=== PATIENT | female | born 1980 | race Caucasian/White ===

== ENCOUNTER 2021-01-26 11:19 | Outpatient (CLI) | payer BC, SELFPAY ==
--- NOTE | ~2021-01-26 | CT_ITS ---
EXAMINATION: CT abdomen pelvis w con EXAM DATE: 01/26/2021 12:45 INDICATION: R10.31 - Right lower quadrant pain. TECHNIQUE: Spiral CT of the abdomen and pelvis was performed following intravenous injection of 100 m L Omnipaque 350. Axial, coronal and sagittal images of the abdomen and pelvis were reviewed. The do se-length product (DLP) for this examination was 375.15 mGy-cm. The exposure was tailored according to patient size (auto mA exposure control), and iterative reconstruction (ASIR) was used as additiona l dose reduction technique. There is no prior study for comparison. FINDINGS: The liver, spleen, adrenal glands and pancreas are unremarkable. Gallbladder is unremarkab le. No biliary obstruction. Portal and splenic veins are patent. Kidneys enhance symmetrically. T here is no hydronephrosis. The uterus is unremarkable. Small free pelvic fluid. The bladder is unr emarkable. There is no retroperitoneal or pelvic lymphadenopathy. Appendix is dilated at 9 mm, has mild adjacent inflammation. No appendicolith or abscess. Acute uncom plicated appendicitis. The stomach and small bowel are unremarkable. There is expected amount of co lonic stool. No free intraperitoneal gas. The heart is normal in size. There are no pericardial or pleural effusions. The lung bases are unremarkable. There are no osteoblastic or osteolytic lesi ons identified. IMPRESSION: Acute appendicitis. I discussed diagnosis with Destini in the office of the ordering clinician THOMAS Brady t 01/26/2021 12:58 [employer] EVENTS [employer]. Reviewed, dictated and finalized at location B. 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 I discussed diagnosis with Destini in the office of the ordering clinician Hannah Jones PA-C at 01/26/2021 12:58 SPECIAL EVENTS [employer]DR[employer]IS[employer].
== END 2021-01-26 11:20 | disposition home or self-care (01) ==
PROVIDERS: PCP Family Medicine; Visit Provider Physician Assistant
DX: R10.31 Right lower quadrant pain (principal); K37 Unspecified appendicitis
CPT/HCPCS: 74177; Q9967

== ENCOUNTER 2021-01-26 14:02 | Day surgery (SDC) | payer BC, SELFPAY ==
[2021-01-26] VITALS (11 sets, daily range): BP systolic 102–134; BP diastolic 61–76; PULSE 50–80; RESP 12–18; TEMP 36.6–37.3; O2SAT 99–100
[2021-01-26 14:46] LABS: Basophils Percent Auto 0.6 % (0.2-1.2); Eosinophils Percent Auto 0.6 % (0-4.4); Hematocrit 44.3 % (37.0-47.0); Hemoglobin 14.6 g/dL (12.0-15.0); Immature Granulocyte Absolute 0.02 K/mm3 (0.00-0.031); Immature Granulocyte Percent A 0.3 % (0-0.5); Mean Corpuscular Hemoglobin 30.6 pg (26-34); Mean Corpuscular Volume 92.9 fl (80-100); Mean Platelet Volume 11.4 fl (7.4-10.4); Monocytes Absolute Auto 0.4 K/mm3 (0.1-0.6); Monocytes Percent Auto 6.2 % (2.6-8.5); Neutrophils Absolute Auto 4.2 K/mm3 (1.3-6.7); Neutrophils Percent Auto 62.3 % (45.5-73.1); Platelet Count Result 234 k/mm3 (150-375); Red Blood Count 4.77 M/mm3 (4.2-5.4); Red Cell Distribution Width 11.5 % (11.5-14.5); White Blood Count 6.7 K/mm3 (4.5-10.0)
[2021-01-26 14:49] LABS: Alanine Aminotransferase 17 U/L (4-35); Albumin Level 4.9 g/dL (3.5-5.1); Alkaline Phosphatase 51 U/L (38-126); Anion Gap 10 mmol/L (8-16); Aspartate Amino Transferase 27 U/L (14-36); Bilirubin,Total 0.4 mg/dL (0.2-1.3); Blood Urea Nitrogen 7 mg/dL (7-17); Calcium 9.5 mg/dL (8.4-10.2); Carbon Dioxide 26 mmol/L (22-30); Chloride 101 mmol/L (98-107); Estimated CRCL calculation 79 ml/min; Estimated Glomerular Filt Rate > 60; Glucose 90 mg/dL (65-110); Lipase 56 U/L (23-300); Potassium 4.1 mmol/L (3.4-5.0); Sodium 137 mmol/L (137-145)
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
[2021-01-26 15:14] LABS: Add Urine Microscopic? NO; Appearance Urine Clear (Clear); Bilirubin Urine Negative (Negative); Blood Urine Negative (Negative); Color Urine Straw (Yellow); Glucose Urine UA Negative (Negative); Ketones Urine Negative (Negative); Leukocyte Esterase Ur Negative LEU/UL (Negative); Mucus Urine Rare /lpf; Nitrate Urine Negative (Negative); Protein Urine Negative (Negative); Urobilinogen Urine Negative mg/dL (<2.0)
[2021-01-26 15:29] LABS: Pregnancy On Board Control Positive; Urine Pregnancy Test Negative
[2021-01-26] MEDS: SODIUM CHLORIDE 0.9% IV 1,000 ML 999 ML IV CONT (15:34)
--- NOTE | 2021-01-26 16:00 | WPDANESEPPF ---
Anes - Initial Pre Proc Eval Procedure: Operation Date: 01/26/21 17:00 Proposed Procedures p Laparoscopic Appendectomy possible open - Meet Live MD Date/Time: 01/26/21 16:00 Pre Op Diagnosis: Appendicitis Patient Data Age: 40 Gender: F Height: 1.55 m Weight: 63.5 kg Last Vital Signs Temp 36.7 C 01/26/21 14:11 Pulse 66 01/26/21 14:11 Resp 16 01/26/21 14:11 BP 111/67 01/26/21 14:11 Pulse Ox 99 01/26/21 14:11 Allergies Allergy/AdvReac Type Severity Reaction Status Date / Time No Known Allergies Allergy Verified 01/25/21 15:52 Home Medications Medication Instructions Recorded Confirmed Type norethindrone 1 mg-ethinyl 1 tablet PO DAILY 05/02/20 01/25/21 History estradiol 20 mcg (21)-iron 75 mg (7) tablet omeprazole 20 mg capsule,delayed 20 mg PO DAILY #30 cap 01/25/21 01/25/21 Rx release sucralfate 1 gram tablet 1 g PO ONCE #40 tablet 01/25/21 01/25/21 Rx Laboratory Tests 01/26/21 01/26/21 01/26/21 14:28 14:28 14:39 WBC 6.7 K/mm3 K/mm3 (4.5-10.0) RBC 4.77 M/mm3 M/mm3 (4.2-5.4) Hgb 14.6 g/dL g/dL (12.0-15.0) Hct 44.3 % % (37.0-47.0) MCV 92.9 fl fl (80-100) MCH 30.6 pg pg (26-34) MCHC 33.0 g/dl g/dl (32-36) RDW 11.5 % % (11.5-14.5) Plt Count 234 k/mm3 k/mm3 (150-375) MPV 11.4 fl H fl (7.4-10.4) Immature Gran % (Auto) 0.3 % % (0-0.5) Neut % (Auto) 62.3 % % (45.5-73.1) Lymph % (Auto) 30.0 % % (18.3-44.2) [place] % (Auto) 6.2 % % (2.6-8.5) Eos % (Auto) 0.6 % % (0-4.4) Baso % (Auto) 0.6 % % (0.2-1.2) Lymph # (Auto) 2.00 K/mm3 K/mm3 (0.9-3.2) [place] # (Auto) 0.4 K/mm3 K/mm3 (0.1-0.6) Eos # (Auto) 0.0 K/mm3 K/mm3 (0-0.3) Baso # (Auto) 0.0 K/mm3 K/mm3 (0.0-0.1) Abs Immat Gran (auto) 0.02 K/mm3 K/mm3 (0.00-0.031) Absolute Neuts (auto) 4.2 K/mm3 K/mm3 (1.3-6.7) Absolute Nucleated RBC 0.0 K/mm3 K/mm3 (0.0-0.012) Nucleated RBC % 0.0 % % (0.0-0.2) Sodium 137 mmol/L mmol/L (137-145) Potassium 4.1 mmol/L mmol/L (3.4-5.0) Chloride 101 mmol/L mmol/L (98-107) Carbon Dioxide 26 mmol/L mmol/L (22-30) Anion Gap 10 mmol/L mmol/L (8-16) BUN 7 mg/dL mg/dL (7-17) Creatinine 0.70 mg/dL mg/dL (0.7-1.0) Estim Creat Clear Calc 79 ml/min ml/min Estimated GFR > 60 (59 - ) Glucose 90 mg/dL mg/dL (65-110) Calcium 9.5 mg/dL mg/dL (8.4-10.2) Total Bilirubin 0.4 mg/dL mg/dL (0.2-1.3) AST 27 U/L U/L (14-36) ALT 17 U/L U/L (4-35) Alkaline Phosphatase 51 U/L U/L (38-126) Total Protein 8.0 g/dL g/dL (6.3-8.2) Albumin 4.9 g/dL g/dL (3.5-5.1) Lipase 56 U/L U/L (23-300) Urine Color Straw (Yellow) Urine Appearance Clear (Clear) Urine pH 6.0 (5.0-9.0) Ur Specific Tracy 1.010 (1.001-1.035) Urine Protein Negative mg/dL mg/dL (Negative) Urine Glucose (UA) Negative mg/dL mg/dL (Negative) Urine Ketones Negative mg/dL mg/dL (Negative) Ur Blood (Man) Negative (Negative) Urine Nitrate Negative (Negative) Urine Bilirubin Negative (Negative) Urine Urobilinogen Negative mg/dL mg/dL (<2.0) Leukocyte Esterase Rfl Negative JAYDEN/UL JAYDEN/UL (Negative) Urine Mucus Rare /lpf /lpf Urine Test 01/26/21 14:39 WBC RBC Hgb Hct MCV MCH MCHC RDW Plt Count MPV Immature Gran % (Auto) Neut % (Auto) Lymph % (Auto) [place] % (Auto) Eos % (Auto) Baso % (Auto) Lym
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
--- NOTE | 2021-01-26 16:41 | WPDANESEFPP ---
Anes - Eval Final PreProcedure Day of Procedure 01/26/21 16:41 Patient weight: overweight Heart: regular rate and rhythm Lungs: clear to auscultation Airway: Mallampati scale class II Neurological: alert and oriented Last oral intake: >/= 8 hours ASA classification: II Emergent: yes Anesthetic plan: proceed Anesthesia type and monitoring: general ETT and standard monitoring Results Review: All pre-operative results and documents have been reviewed as part of the pre-operative evaluation. Informed Consent: The patient's anesthetic plan and its attendant risks and benefits were discussed with the patient/family/POA. Questions were solicited and answers provided to the satisfaction of the patient/family/POA.
[2021-01-26] MEDS: LACTATED RINGERS 1,000 ML 30 ML IV CONT ×2 (16:46→18:05)
[2021-01-26] MEDS: BUPIVACAINE HCL 0.5% PF 30 ML VIAL 20 ML INFILTRATE (16:55)
--- NOTE | 2021-01-26 16:57 | WPDHPUPDATE1 ---
History and Physical Update Update Date/Time: 01/26/21 16:57 History and Physical has been reviewed, including an updated exam of the patient. There are NO changes in the patient's condition. Risks, benefits, and alternatives have been discussed and questions answered. Patient agrees to proceed with procedure.
--- NOTE | 2021-01-26 16:58 | W.PM.PROC2 ---
Procedure Note - Detailed Date of Procedure 01/26/21 Pre-op Diagnosis Appendicitis Post-op Diagnosis same Procedure Performed Laparoscopic appendectomy Surgeon Meet Live MD [employer] Change Attendant Sukh GASTON Anesthesia general and local (0.5% Marcaine) Indications Patient presented to her primary care physician with upper abdominal pain yesterday. She did notice some tenderness in the right lower quadrant as well as in the epigastrium. The patient had a CT scan of the abdomen and pelvis this morning. This showed early acute appendicitis. She is taken to surgery now for laparoscopic appendectomy. Findings Acute non perforated appendicitis Description of Procedure Patient was taken to surgery and induced into general anesthesia. The abdomen is prepped and draped. Trocars were placed in the usual fashion using 0.5% Marcaine and applied Medical optical trocars. A 5 mm camera was used. The patient was placed in Trendelenburg with the right-side elevated. The appendix was found fairly easily and was dissected free from inflammatory adhesions. It was elevated into the anterior aspect of the peritoneal cavity. Dissection was carried out at the base of the mesoappendix. The appendiceal artery was thoroughly cauterized and divided. The base of the appendix was skeletonized. Base of the appendix was ligated with a Vicryl endoloop. The appendix was then amputated just above the ligature. The mucosa of the appendiceal stump was cauterized. The appendix was placed immediately in an Endo-Catch bag and retrieved through the 10 11 left lower quadrant trocar site. We then replaced the left lower quadrant trocar. We reviewed the areas of dissection as well as the appendiceal stump. All looked good. Any clot or other debris was suctioned away. We then evacuated CO2 and removed the trocar sleeves. Skin wounds were closed with subcuticular running Monocryl 4-0 Monocryl skin suture. The wounds were dressed with Exofin surgical adhesive. The patient was awakened and taken to recovery in good condition. Sponge needle counts were correct x2. Estimated Blood Loss -5 Drains No Packing No Pathology yes (Appendix) Complications No immediate complications Condition stable Disposition PACU
[2021-01-26] MEDS: oxyCODONE HCL (*CRX) 5 MG TAB IR PO (18:54)
[2021-01-26] MEDS: ONDANSETRON INJ 4 MG/2 ML VIAL IV PUSH (19:16)
== END 2021-01-26 19:36 | disposition home or self-care (01) ==
LOC: ANHED 16:00 → ANHSURGERY 16:21
PROVIDERS: Emergency Medicine; Emergency Provider General Practice; PCP Family Medicine; Visit Provider Surgery
PROC: 0DTJ4ZZ Resection of Appendix, Percutaneous Endoscopic Approach (ICD-10-PCS; CPT 44970; principal; 2021-01-26 17:00)
DX: K35.30 Acute appendicitis with localized peritonitis, without perforation or gangrene (principal); K36 Other appendicitis
CPT/HCPCS: 44970; 36415; 80053; 81003; 81025; 83690; 85025; 88304; 96365; 96367; 99285; A9270; J0131; J0330; J1100; J2405; J2543; J2704; J2710; J3010; J7030; J7120

== ENCOUNTER → 2022-02-21 13:52 | Outpatient (CLI) | payer BC, SELFPAY ==
--- NOTE | ~2022-02-21 | XR_ITS ---
EXAMINATION: XR sacrum coccyx min 2V INDICATION: Pain after fall TECHNIQUE: Three views of the sacrum and coccyx are obtained. COMPARISON: CT, 01/26/2021 FINDINGS: Bone alignment is normal. No definite fracture is identified. Surgical clips project in the right adnexa. No abnormal sclerosis or erosion. IMPRESSION: 1. No acute osseous abnormality. Reviewed, dictated and finalized at location L. E SHIFTER
== END ==
PROVIDERS: PCP Nurse Practitioner; Visit Provider Nurse Practitioner
DX: S39.82XA Other specified injuries of lower back, initial encounter (principal)
CPT/HCPCS: 72220

== ENCOUNTER 2023-11-28 14:20 | Outpatient (CLI) | payer OTHER, SELFPAY ==
--- NOTE | ~2023-11-28 | MM_ITS ---
EXAMINATION: MM screening alvaro BI w aundrea HISTORY: Screening TECHNIQUE: Craniocaudal and mediolateral oblique 3-D tomosynthesis images were obtained and synthetic 2-D images were generated. CAD analysis was submitted and interpreted. COMPARISON: 09/19/2022 BREAST PARENCHYMAL COMPOSITION: Dense: The breasts are heterogeneously dense, which may obscure small masses FINDINGS: There is no evidence of suspicious mass, calcification, or architectural distortion to sugg est malignancy in either breast. There has been no suspicious interval change. IMPRESSION: 1. No mammographic evidence of malignancy. 2. Recommend routine screening mammography in one year. BI-RADS Category 1: Negative Reviewed, dictated and finalized at location B.
== END 2023-11-28 14:21 | disposition home or self-care (01) ==
LOC: CHSIMG 14:22
PROVIDERS: PCP Family Medicine; Visit Provider Obstetrics & Gynecology
DX: Z12.31 Encounter for screening mammogram for malignant neoplasm of breast (principal)
CPT/HCPCS: 77063; 77067

== ENCOUNTER 2024-02-16 10:04 | Outpatient (CLI) | payer OTHER, SELFPAY | END 2024-02-16 10:05 | disposition home or self-care (01) | PROVIDERS: PCP Family Medicine; Visit Provider Family Medicine | DX: R94.31 Abnormal electrocardiogram [ECG] [EKG] (principal); R55 Syncope and collapse; R00.2 Palpitations | CPT/HCPCS: 93242 ==

== ENCOUNTER 2024-02-17 08:12 | Outpatient (CLI) | payer OTHER, SELFPAY ==
[2024-02-17 14:29] LABS: Basophils Absolute Auto 0.1 K/mm3 (0.0-0.1); Eosinophils Absolute Auto 0.2 K/mm3 (0-0.3); Eosinophils Percent Auto 2.4 % (0-4.4); Hematocrit 43.1 % (37.0-47.0); Hemoglobin 13.8 g/dL (12.0-15.0); Immature Granulocyte Absolute 0.01 K/mm3 (0.00-0.031); Immature Granulocyte Percent A 0.2 % (0-0.5); Lymphocytes Absolute Auto 3.24 K/mm3 (0.9-3.2); Lymphocytes Percent Auto 51.3 % (18.3-44.2); Mean Corpuscular Hemoglobin 30.1 pg (26-34); Mean Corpuscular Volume 94.1 fl (80-100); Mean Platelet Volume 11.4 fl (7.4-10.4); Monocytes Absolute Auto 0.6 K/mm3 (0.1-0.6); Monocytes Percent Auto 9.2 % (2.6-8.5); Neutrophils Absolute Auto 2.3 K/mm3 (1.3-6.7); Neutrophils Percent Auto 35.9 % (45.5-73.1); Platelet Count Result 245 k/mm3 (150-375); Red Blood Count 4.58 M/mm3 (4.2-5.4); Red Cell Distribution Width 11.6 % (11.5-14.5); White Blood Count 6.3 K/mm3 (4.5-10.0)
[2024-02-17 14:42] LABS: Alanine Aminotransferase 20 U/L (6-35); Albumin Level 4.3 g/dL (3.5-5.1); Alkaline Phosphatase 44 U/L (38-126); Anion Gap 0 mmol/L (4-12); Aspartate Amino Transferase 81 U/L (14-36); Bilirubin,Total 0.7 mg/dL (0.2-1.3); Blood Urea Nitrogen 15 mg/dL (7-17); Carbon Dioxide 32 mmol/L (22-30); Chloride 104 mmol/L (98-107); Cholesterol 262 mg/dL (0-200); Estimated Glomerular Filt Rate > 60; Glucose 84 mg/dL (65-110); HDL Direct 68 mg/dL; Potassium 4.4 mmol/L (3.4-5.0); Sodium 136 mmol/L (137-145); Triglycerides 144 mg/dL (<150)
[2024-02-17 14:51] LABS: LDL Cholesterol Direct 138 mg/dL
--- OUTSIDE RECORDS SUMMARY | 2024-02-24 06:20 | XMS_ITS | Clinical Summary ---
Author Organization 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 Note: Unchanged Visit For: Contraceptive Surveillance 12/02/2022 RAY ROCK MD Active Last Documented On 12/02/2022 4:44PM ; [facility] Note: Unchanged Dysfunctional Uterine Bleeding 05/28/2018 BAN WILKES RN [facility] Active Last Documented On 05/28/2018 9:42AM ; [facility] Note: Unchanged Plan of Treatment - Weight loss diet - Last Documented On 08/13/2021 11:01AM ; [facility] - Clinical summary provided to patient - Last Documented On 08/13/2021 11:01AM ; [facility] PT TO CALL WITH ANY CHANGE IN STATUS ALL QUESTIONS ANSWERED WITH UNDERSTANDING VERBALIZED BY PT. - Last Documented On 08/13/2021 11:01AM ; [facility] Instructions to patient Instructed to call if excess shreyas bleeding or abdominal/pelvic pain Last Documented On 10:45AM ; [facility] Instructions For Patient: Mo nthly Self Breast Exam Last Documented On 2 10:45AM ; [facility] Recommend diet and exercise at least 30 min three times per week Last Documented On 2 10:45AM ; [facility] Education and Decision Aids were provided during visit for: Patient education RE: juan josen g signals associated with hormonal contraceptive use including abdominal, chest, or leg pain, headaches or visual disturbances Last Documented On 2 10:45AM ; [facility] Patient Education: Daily ojs cium and vitamin D Last Documented On 2 10:45AM ; [facility] Assessments Includes: Assessments from this encounter Findings - NORMAL FEMALE EXAM - Last Documented On 08/13/2021 11:01AM ; [facility] - Screen malignant neoplasm cervix - Last Documented On 08/13/2021 11:01AM ; [facility] Instructions Includes: Instructions from this encounter Instructions to patient Instructed to call if excess shreyas bleeding or abdominal/pelvic pain Last Documented On 2 10:45AM ; [facility] Instructions For Patient: Mo nthly Self Breast Exam Last Documented On 2 10:45AM ; [facility] Recommend diet and exercise at least 30 min three times per week Last Documented On 2 10:45AM ; [facility] Education and Decision Aids were provided during visit for: Patient education RE: juan josen g signals associated with hormonal contraceptive use including abdominal, chest, or leg pain, headaches or visual disturbances Last Documented On 2 10:45AM ; [facility] Patient Education: Daily jos cium and vitamin D Last Documented On 2 10:45AM ; [facility] Medical Equipment - Implanted Devices Includes: Current Devices No Medical Equipment Recorded Medications Includes: Medications discussed during this encounter and other current Medications Discontinued / Stopped on this date on 06/22/2020 Biotin Plus Keratin 52660-963 MCG-MG Oral Tablet Provider: Diagnosis: Last Documented On 08/13/2021 10:38AM By Annette Andres ; [facility] B-12 5000 MCG Oral Capsule Provider: Diagnosis: Last Documented On 08/13/2021 10:37AM By Annette Andres ; [facility] Glucosamine-Chondroitin 6492-5363 MG/30ML Oral Liquid Provider: Diagnosis: Last Documented On 08/13/2021 10:38AM By Annette Andres ; [facility] Sudafed 30MG Oral Tablet Provider: Diagnosis: Last Documented On 08/13/2021 10:38AM By Annette Andres ; [facility] New / Renewed during this visit BAN WILKES RN [facility] on 08/13/2021 Lo Loestrin Fe 1 MG-10 MCG / 10 MCG Oral Tablet Provider: BAN WILKES RN LOR[facility]ZO 84 day supply: 84 tablet, 3 refills Diagnosis: One tablet daily Pharmacy: [facility] [address], [address] - Last Documented On 2 2:46PM By BAN PRESLEY ; [facility] Current Medications (continue as prescribed) ZyrTEC Allergy 10 MG Oral Tablet 08/13/2021 Provider : Diagnosis: Last Documented On 08/13/2021 10:38AM By Annette Andres ; [facility] Womens Multivitamin Oral Tablet 06/22/2020 Provider: Diagnosis: Last Documented On 1 9:20AM By MOISÉS DONALDSON ; [facility] Past Medications on file Lo Loestrin Fe 1 MG-10 MCG / 10 MCG Oral Tablet 09/19/2022 - 12/12/2022 Provider: BAN VELASQUEZ Diagnosis: Encounter for surveillance of contraceptives, unspecified One tablet daily TAKE DIRECTED Last Documented On 3 2:34PM By BAN RICARDO ; [facility] Condoms Miscellaneous 08/15/2022 - 09/14/2022 Provider: BAN VELASQUEZ Diagnosis: Other specified abnormal uterine and vaginal bleeding as directed PLEASE DISPENSE MAGNUM CONDOMS Last Documented On 3 12:00PM By BAN RICARDO ; [facility] Aviane 0.1-20MG-MCG Oral Tablet 05/27/2017 - 08/19/2017 Provider: BAN VELASQUEZ Diagnosis: Other specified abnormal uterine and vaginal bleeding TAKE 1 TAB DAILY START PACK Friday AFTER MENSES BEGINS Last Documented On 8 2:48PM By BAN RICARDO ; [facility] Medications Administered Includes: Administered Medications from this encounter No Administered Medications Recorded Vital Signs Includes: Vital Signs from this encounter Vital Name 08/13/2021 10:36A Blood Pressure Sitting L 102/76 BP Cuff Size Regular Temp-Oral (F) 98 Height (in) 61.75 Weight (lb) 152 Body Mass Index (kg/m2) 28.0 Body Surface Area (m2) 1.7 Last Documented: On 08/13/2021 10:39A M ; [facility] Results Includes: Results discussed during this encounter No Results Recorded For Specified Dates History of Present Illness Includes: History of Present Illness from this encounter HPI - Allergy list reviewed - Medication list reviewed Takes combined OCP continuous to avoid cycles Social History Description Last Updated Alcohol use: 2 drinks or less per day oc c 08/13/2021 Last Documented On 2 11:01AM ; [facility] Current nonsmoker 08/13/2021 Last Documented On 2 11:01AM ; [facility] Currently 08/13/2021 Last Documented On 2 11:01AM ; [facility] Educational level 08/13/2021 Last Documented On 2 11:01AM ; [facility] Exercising regularly Activities 08/14/19 Last Documented On 2 11:01AM ; [facility] Former smoker 08/13/2021 Last Documented On 2 11:01AM ; [facility] In monogamous relationship 08/13/2021 Last Documented On 2 11:01AM ; [facility] Marital history 08/13/2021 Last Documented On 2 11:01AM ; [facility] Non-smoker 08/13/2021 Last Documented On 2 11:01AM ; [facility] Not using alcohol 08/13/2021 Last Documented On 2 11:01AM ; [facility] Not using drugs 08/13/2021 Last Documented On 2 11:01AM ; 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 Sexually active with 1 partners in the l ast year 08/13/2021 Last Documented On 2 11:01AM ; [facility] Alcohol use 08/13/2021 Last Documented On 2 11:01AM ; [facility] control is being practiced BTL Last Documented On 2 11:01AM ; [facility] Tobacco non-user 08/13/2021 Last Documented On 2 11:01AM ; [facility] Smoking Status Unknown Procedures and Surgical History Includes: Procedures from this encounter Procedures Code Diagnosis Performing Provider Service L ocation Service Date education and instructions Last Documented On 2 10:45AM ; [facility] explanation of plan Last Documented On 2 10:45AM ; [facility] medical regimen review Last Documented On 2 10:45AM ; [facility] Discussed Contraception Last Documented On 2 10:45AM ; [facility] Urged Exercise and Diet , exercise at le ast 30 min three times per week Last Documented On 2 10:45AM ; [facility] a mammogram was performed 08/17/2020 Last Documented On 2 10:41AM ; [facility] cervical Pap smear [id number] Last Documented On 2 10:45AM ; [facility] history of cervical Pap smear 08/09/2020 [id number] Last Documented On 2 10:41AM ; [facility] Surgical History Last Updated History of tubal ligation 08/05/2005 10/0 10/2022 Last Documented On 2 10:34AM ; [facility] History of appendectomy 01/27/202108/13 Last Documented On 2 11:01AM ; [facility] Medical History Includes: Medical History addressed during this encounter Description Last Updated Contraception: tubal 12/02/2022 Last Documented On 2 10:34AM ; [facility] Result: normal 12/02/2022 Last Documented On 2 10:34AM ; [facility] A mammogram was performed 08/13/2021 Last Documented On 2 11:01AM ; [facility] History of screening mammogram was perfo rmed 08/17/2020 08/13/2021 Last Documented On 2 11:01AM ; [facility] LMP: 07/05/2021 usually does not have cyc le but missed pills and had one 08/13/2021 Last Documented On 2 11:01AM ; [facility] Last mammogram date: 08/17/2020 2 Last Documented On 2 11:01AM ; [facility] Last pap smear date 08/09/2020 no ECC Last Documented On 2 11:01AM ; [facility] History of cervical Pap smear 06/22/2020 WNL no ECC 08/09/2020 Last Documented On 2 10:34AM ; [facility] Vaginal delivery x 2 06/22/2020 Last Documented On 2 10:34AM ; [facility] Primary Care Provider: Kena Daniel- part of [facility] system 06/22/2020 Last Documented On 2 10:34AM ; [facility] Sexually active 06/01/2019 Last Documented On 2 10:34AM ; [facility] History of dysfunctional uterine bleedin g 05/28/2018 Last Documented On 2 10:34AM ; [facility] Status post tubal ligation 2004 05/28/19 18 Last Documented On 2 10:34AM ; [facility] Heart Disease- paternal grandfather ~hyp ertension- both sides 05/27/2017 Last Documented On 2 10:34AM ; [facility] 2 05/27/2017 Last Documented On 2 10:34AM ; [facility] Para 2 05/27/2017 Last Documented On 2 10:34AM ; [facility] Family History Includes: Family History addressed during this encounter Description Last Updated Family history of malignant neoplasm of large intestine 2 different paternal uncles ~maternal uncle 06/22/2020 Last Documented On 2 10:34AM ; [facility] Heart Disease- paternal grandfather ~hyp ertension- both sides 05/28/2018 Last Documented On 2 10:34AM ; [facility] M uncle Prostate CA 05/28/2018 Last Documented On 2 10:34AM ; [facility] Family history of malignant female breast neoplasm mom in 50's dx. 2018 intraductal carcinoma, ER+ SC+ HER 2 - 05/28/2018 Last Documented On 2 10:34AM ; [facility] Family history of diabetes m ellitus paternal grandparents ~sister during 05/27/2017 Last Documented On 2 10:34AM ; [facility] Review of Systems Includes: Review of Systems from this encounter Systemic: Not tiring easily. No fever, no chills, no unusual bleeding, and no recent weight change. No pain. Head: No headache. Neck: No neck pain and no swollen glands in the neck. Eyes: No vision problems. Breasts: No breast symptoms, no breast lump, no pain in breast, and patient performs self breast exams. Cardiovascular: No chest pain or discomfort and no palpitations. Pulmonary: No pulmonary symptoms, no dyspnea, no cough, and no wheezing. Gastrointestinal: No heartburn. No nausea, no vomiting, no abdominal pain, no diarrhea, and no constipation. Genitourinary: No change in urinary frequency and no incomplete emptying of bladder. No urinary loss of control and no dysuria. No genital lesion, no pain during intercourse, and no vaginal dryness. No nonmenstrual bleeding. No vaginal discharge. Endocrine: No polydipsia, no hot flashes, and libido has not changed. Musculoskeletal: No back pain, no muscle aches, and no localized joint pain. Neurological: No dizziness. Psychological: No anxiety, no depression, and a desire to continue living. Skin: No pruritus. No skin lesions and no rash. Mental Status Includes: Mental Status from this encounter Description Oriented to time, place, and person No anxiety A desire to continue living Functional Status Includes: Functional Status from this encounter No Functional Status Recorded Physical Exam Includes: Physical Exam from this encounter Allergies Includes: Active Allergies No Known Allergies Encounters Encounter Provider Location Date Check-In Time Check-Out Time Diagnosis WELL [facility]OMAN - ESTABLISHED PT BAN WILKES RN NP [facility] 08/14/19 22 10:33AM 10:59AM Normal Female Exam,Screen Malignant Neoplasm Cervix Insurance Includes: Active Insurance Policies Plan Name Member ID Group # Subscriber Relationship Effect shreyas Dates 1 - [facility] [id number] DAYA WHITE Self Clinical Notes Includes: Clinical Notes from this encounter No Clinical Notes Recorded
--- OUTSIDE RECORDS SUMMARY | 2024-02-24 06:20 | XMS_ITS | Clinical Summary ---
Author Organization [facility] Address [address] [place] [address] Phone Care Team Providers Care Sales Systems Engineer Name Role Phone SHWETA SCOTT, RAY Alexander Unavailable [phone] SHY VELIZ MD Primary Care Provider [phone] Reason for Visit and Chief Complaint visit for: contraceptive management - The Chief Complaint is: REPAP, NO ECC Problems Includes: Problems addressed during this encounter and other active Problems All Visits Onset Date Resolved Date Provider Condition S tatus Hyperlipidemia 12/02/2022 RAY Pickett MD Active Last Documented On 12/02/2022 4:44PM ; [facility] Note: Unchanged Visit For: Contraceptive Surveillance 12/02/2022 RAY CHOE MD Active Last Documented On 12/02/2022 4:44PM ; [facility] Note: Unchanged Dysfunctional Uterine Bleeding 05/28/2018 BAN WILKES RN [facility] Active Last Documented On 05/28/2018 9:42AM ; [facility] Note: Unchanged Plan of Treatment Education and Decision Aids were provided during visit for: Patient education :Pt. infor med of CT of abdomen and pelvis results today and handout given on HSG procedure. Pt. to be notified of all results for plan of care as well as need for surgical consult post HSG Last Documented On 3 2:36PM ; [facility] Patient counseling : I discu ssed with the patient possible causes of abnormal Pap smear and recommended evaluation. Potential treatments were also discussed Last Documented On 3 2:32PM ; [facility] Patient counseling : Use of contraceptives discussed in detail including rare occurrence of heart attack, stroke, and leg clots. Patient understands that smoking increases the risk of serious side effects with any steroid-based contraceptive method Last Documented On 3 2:38PM ; [facility] Assessments Includes: Assessments from this encounter Findings - [R87.615 - Unsatisfactory cytologic smear of cervix] Abnormal Pap smear of cervix - Last Documented On 09/19/2022 2:42PM ; [facility] - [Z30.40 - Encounter for surveillance of contraceptives, unspecified] Contraceptive surveillance - Last Documented On 09/19/2022 2:42PM ; [facility] - [Z30.2 - Encounter for sterilization] Encounter for contraceptive management, sterilization - Last Documented On 09/19/2022 2:42PM ; [facility] Instructions Includes: Instructions from this encounter Education and Decision Aids were provided during visit for: Patient education :Pt. infor med of CT of abdomen and pelvis results today and handout given on HSG procedure. Pt. to be notified of all results for plan of care as well as need for surgical consult post HSG Last Documented On 3 2:36PM ; [facility] Patient counseling : I discu ssed with the patient possible causes of abnormal Pap smear and recommended evaluation. Potential treatments were also discussed Last Documented On 3 2:32PM ; [facility] Patient counseling : Use of contraceptives discussed in detail including rare occurrence of heart attack, stroke, and leg clots. Patient understands that smoking increases the risk of serious side effects with any steroid-based contraceptive method Last Documented On 3 2:38PM ; [facility] Medical Equipment - Implanted Devices Includes: Current Devices No Medical Equipment Recorded Medications Includes: Medications discussed during this encounter and other current Medications Discontinued / Stopped on this date BAN WILKES RN LORENZO on 07/03/202203/15 1-20 MG-MCG Oral Tablet Provider: BAN WILKES RN Alonso P Diagnosis: Other specified abnormal uterine and vaginal bleeding Last Documented On 09/19/2022 1:58PM By Annette Andres ; [facility] New / Renewed during this visit BAN VELASQUEZ on 09/19/2022 Lo Loestrin Fe 1 MG-10 MCG / 10 MCG Oral Tablet Provider: BAN Gupta LORENZO 28 day supply: 28 tablet, 2 refills Diagnosis: Encounter for surveillance of contraceptives, unspecified One tablet daily TAKE DIRECTED Last Documented On 3 2:34PM By BAN RICARDO ; [facility] Current Medications (continue as prescribed) ZyrTEC Allergy 10 MG Oral Tablet 08/13/2021 Provider : Diagnosis: Last Documented On 08/13/2021 10:38AM By Annette Andres ; [facility] Womens Multivitamin Oral Tablet 06/22/2020 Provider: Diagnosis: Last Documented On 1 9:20AM By MOISÉS DONALDSON ; [facility] Past Medications on file Condoms Miscellaneous 08/15/2022 - 09/14/2022 Provider: BAN WILKES RN LORENZO Diagnosis: Other specified abnormal uterine and vaginal bleeding as directed PLEASE DISPENSE MAGNUM CONDOMS Last Documented On 3 12:00PM By BAN RICARDO ; [facility] Aviane 0.1-20MG-MCG Oral Tablet 05/27/2017 - 08/19/2017 Provider: BAN WILKES RN LORENZO Diagnosis: Other specified abnormal uterine and vaginal bleeding TAKE 1 TAB DAILY START PACK Friday AFTER MENSES BEGINS Last Documented On 8 2:48PM By BAN RICARDO ; [facility] Medications Administered Includes: Administered Medications from this encounter No Administered Medications Recorded Vital Signs Includes: Vital Signs from this encounter Vital Name 09/19/2022 01:55P Blood Pressure Sitting L 98/60 BP Cuff Size Regular Temp-Temporal 98.3 Height (in) 61.75 Weight (lb) 148 Body Mass Index 27.3 Body Surface Area 1.7 Last Documented: On 09/19/2022 2:01PM ; [facility] Results Includes: Results discussed during this encounter No Results Recorded For Specified Dates History of Present Illness Includes: History of Present Illness from this encounter HPI Patient comes with a history of abnormal pap smear. See details of Pap smear results below. The patient presents for contraceptive management. See details below. - Allergy list reviewed. - Feeling fine. - No headache. - No breast symptoms. - No bloating - No jaundice - Normal menses Social History No Social History Recorded - Smoking Status Unknown Procedures and Surgical History Includes: Procedures from this encounter Procedures Code Diagnosis Performing Provider Service L ocation Service Date education and instructions Last Documented On 3 2:38PM ; [facility] Pap smear done 78844 Last Documented On 3 2:31PM ; [facility] Clinical summary provided to patient Last Documented On 3 2:38PM ; [facility] Surgical History Last Updated History of tubal ligation 08/05/20050 10/2022 Last Documented On 3 1:54PM ; [facility] History of appendectomy 01/27/202108/13 Last Documented On 3 1:54PM ; [facility] Medical History Includes: Medical History addressed during this encounter Description Last Updated Contraception: tubal 12/02/2022 Last Documented On 3 1:54PM ; [facility] Last mammogram date: 08/202112/02/2022 Last Documented On 3 1:54PM ; [facility] Result: normal 12/02/2022 Last Documented On 3 1:54PM ; [facility] Result: normal no ECC 09/19/2022 Last Documented On 3 2:42PM ; [facility] Last pap smear date 08/15/2022 NO ECC Last Documented On 3 2:42PM ; [facility] LMP: 08/15/2022 Just spotting every once and a while 08/15/2022 Last Documented On 3 1:54PM ; [facility] History of screening mammogram was perfo rmed 08/202108/15/2022 Last Documented On 3 1:54PM ; [facility] A mammogram was performed 08/13/2021 Last Documented On 3 1:54PM ; [facility] History of cervical Pap smear 06/22/2020 WNL no ECC 08/09/2020 Last Documented On 3 1:54PM ; [facility] Vaginal delivery x 2 06/22/2020 Last Documented On 3 1:54PM ; [facility] Primary Care Provider: Kena Daniel- part of [employer] system 06/22/2020 Last Documented On 3 1:54PM ; [facility] Sexually active 06/01/2019 Last Documented On 3 1:54PM ; [facility] History of dysfunctional uterine bleedin g 05/28/2018 Last Documented On 3 1:54PM ; [facility] Status post tubal ligation 200305/28/19 Last Documented On 3 1:54PM ; [facility] Heart Disease- paternal grandfather ~hyp ertension- both sides 05/27/2017 Last Documented On 3 1:54PM ; [facility] 2 05/27/2017 Last Documented On 3 1:54PM ; [facility] Para 2 05/27/2017 Last Documented On 3 1:54PM ; [facility] Family History Includes: Family History addressed during this encounter Description Last Updated Family history of malignant neoplasm of large intestine 2 different paternal uncles ~maternal uncle 06/22/2020 Last Documented On 3 1:54PM ; [facility] Heart Disease- paternal grandfather ~hyp ertension- both sides 05/28/2018 Last Documented On 3 1:54PM ; [facility] M uncle Prostate CA 05/28/2018 Last Documented On 3 1:54PM ; [facility] Family history of malignant female breast neoplasm mom in 50's dx. 2018 intraductal carcinoma, ER+ OR+ HER 2 - 05/28/2018 Last Documented On 3 1:54PM ; [facility] Family history of diabetes m ellitus paternal grandparents ~sister during 05/27/2017 Last Documented On 3 1:54PM ; [facility] Review of Systems Includes: Review of Systems from this encounter Systemic: No fever and no chills. Head: No headache. Eyes: No vision problems. Cardiovascular: No chest pain or discomfort. Pulmonary: No dyspnea. Gastrointestinal: No nausea, no vomiting, and no abdominal pain. DENIES ARM OR LEG PAIN ON HORMONAL CONTRACEPTION. Mental Status Includes: Mental Status from this encounter No Mental Status Recorded Functional Status Includes: Functional Status from this encounter No Functional Status Recorded Physical Exam Includes: Physical Exam from this encounter Allergies Includes: Active Allergies No Known Allergies Encounters Encounter Provider Location Date Check-In Time Check-Out Time Diagnosis FOLLOW UP BAN VELASQUEZ [facility] 09/20/19 23 1:28PM 2:26PM Assessment of Abnormal Pap Smear of Cervix,Encounter For Contraceptive Management, Sterilization,Con traceptive Surveillance Insurance Includes: Active Insurance Policies Plan Name Member ID Group # Subscriber Relationship Effect shreyas Dates 1 - [facility] [id number] DAYA WHITE Self Clinical Notes Includes: Clinical Notes from this encounter * Progress note Date Encounter Last Documented by 09/19/2022 FOLLOW UP Last documented on 09/19/2022; 2:42 PM, BAN WILKES RN LORENZO ; [facility] Active Problems & Conditions - N93.8 - Dysfunctional Uterine Bleeding - Z80.3 - Family History of Breast Neoplasm Malignant Female - Mom - Z83.3 - Family History of Diabetes Mellitus - paternal grandparentssister during Chief Complaint The Chief Complaint is: REPAP, NO ECC. Reason For Visit Visit for: contraceptive management. History of Present Illness Patient comes with a history of abnormal pap smear. See details of Pap smear results below. The patient presents for contraceptive management. See details below. - Allergy list reviewed. - Feeling fine. - No headache. - No breast symptoms. - No bloating - No jaundice - Normal menses Current Medication - Lo Loestrin Fe 1 MG-10 MCG / 10 MCG Oral Tablet One tablet daily TAKE DIRECTED, 28 days, 2 refills - Womens Multivitamin Oral Tablet 0 days, 0 refills - ZyrTEC Allergy 10 MG Oral Tablet 0 days, 0 refills Past Medical/Surgical History Other: Primary Care Provider: Annette Daniel- part of [employer] system Reported: LMP: 08/15/2022 Just spotting every once and a while, Last pap smear date NO ECC, result: normal no ECC, Last mammogram date: 08/2021 result: normal, Contraception: tubal, and status post tubal ligation 2003. Tests: A mammogram was performed. : 2, para 2, and history of the : vaginal delivery x 2. Sexual: Sexually active. Other: Screening mammogram was performed 08/2021. Cervical Pap smear 06/22/2020 WNL no ECC Diagnoses: Dysfunctional uterine bleeding Heart Disease- paternal grandfather hypertension- both sides. Surgical: - Appendectomy 01/27/2021 - Tubal ligation 08/05/2005 Allergies - No Known Allergies Family History Heart Disease- paternal grandfather hypertension- both sides M uncle Prostate CA Diabetes mellitus paternal grandparents sister during Malignant neoplasm of large intestine 2 different paternal uncles maternal uncle Malignant female breast neoplasm mom in 50's dx. 2018 intraductal carcinoma, ER+ OR+ HER 2 - Review Of Systems Systemic: No fever and no chills. Head: No headache. Eyes: No vision problems. Cardiovascular: No chest pain or discomfort. Pulmonary: No dyspnea. Gastrointestinal: No nausea, no vomiting, and no abdominal pain. DENIES ARM OR LEG PAIN ON HORMONAL CONTRACEPTION. Physical Findings - Vitals taken 09/19/2022 01:55 pm BP-Sitting L 98/60 mmHg BP Cuff Size Regular Temp-Temporal 98.3 F Height 61.75 in Weight 148 lbs Body Mass Index 27.3 kg/m2 Body Surface Area 1.7 m2 Lymph Nodes: - Normal. Genitalia: External: - Genitalia showed no abnormalities. Pelvic: - No ovarian mass. Vagina: - No vaginal discharge was observed. Cervix: - No cervical discharge. - Showed no lesion. Uterus: - Not enlarged. - Not tender. Uterine Adnexae: - Uterine adnexa was not tender. Tests 09/19/22 CT scan = 2 filshie clips, R side adjacent to anterior R uterus, L side located midline between bladder and uterus Assessment - [R87.615 - Unsatisfactory cytologic smear of cervix] Abnormal Pap smear of cervix - [Z30.40 - Encounter for surveillance of contraceptives, unspecified] Contraceptive surveillance - [Z30.2 - Encounter for sterilization] Encounter for contraceptive management, sterilization Therapy - Pap smear done. - Education and instructions. - Clinical summary provided to patient. Counseling/Education - Patient education:Pt. informed of CT of abdomen and pelvis results today and handout given on HSG procedure. Pt. to be notified of all results for plan of care as well as need for surgical consult post HSG - Patient counseling: I discussed with the patient possible causes of abnormal Pap smear and recommended evaluation. Potential treatments were also discussed - Patient counseling: Use of contraceptives discussed in detail including rare occurrence of heart attack, stroke, and leg clots. Patient understands that smoking increases the risk of serious side effects with any steroid-based contraceptive method Discussed Plan of care review with Dr. Choe, and he recommends HSG to determine if patent tubes present, and surgical consult to follow. Plan StartCited - Encounter for sterilization Radiology @ [facility]: HSG (Hystrosalpingogram) Instructions: tubal patency s/p Filshie clip displacement EndCited StartCited - Encounter for surveillance of contraceptives, unspecified Lo Loestrin Fe 1 MG-10 MCG / 10 MCG tablet One tablet daily TAKE DIRECTED, 28 days, 2 refills EndCited StartCited - Other PHY ORDER/COMMENT Please r/s annual after 09/20/23 thanks Billing please don't bill for visit, pap was unsatisfactory thanks EndCited StartCited - Unsatisfactory cytologic smear of cervix Lab: PAP SMEAR W/IMAGING (QUEST # [id number]) EndCited Health Reminders - Assess BMI satisfied 09/19/2022. - Mammogram satisfied 08/24/2021.
--- OUTSIDE RECORDS SUMMARY | 2024-02-24 06:20 | XMS_ITS ---
Care Plan - [facility] Created on: February 24, 2024 DAYA WHITE : 1980 Sex: Female Author Organization [facility] Address [address] [place] [address] Phone Care Team Providers Care Real Estate Sales Agent Name Role Phone SHWETA SCOTT, RAY C Unavailable [phone] SHY VELIZ MD Primary Care Provider [phone]
--- OUTSIDE RECORDS SUMMARY | 2024-02-24 06:20 | XMS_ITS ---
Author Organization [facility] Address [address] [place] [address] Phone Care Team Providers Care Mr Teacher Name Role Phone SHWETA SCOTT, RAY Alexander Unavailable [phone] SHY VELIZ MD Primary Care Provider [phone] Problems Includes: Active, inactive, and resolved Problems All Visits Onset Date Resolved Date Provider Condition S tatus Hyperlipidemia 12/02/2022 RAY Pickett MD Active Last Documented On 12/02/2022 4:44PM ; [facility] Note: Unchanged Visit For: Contraceptive Surveillance 12/02/2022 RAY RCOK MD Active Last Documented On 12/02/2022 4:44PM ; [facility] Note: Unchanged Dysfunctional Uterine Bleeding 05/28/2018 BAN WILKES RN [facility] Active Last Documented On 05/28/2018 9:42AM ; [facility] Note: Unchanged Plan of Treatment Findings Encounter Date Ordered Clinical summary pro vided to patient WELL WOMAN - ESTABLISHED PT with BAN WILKES RN [facility] 08/15/2022 Last Documented On 3 12:01PM ; [facility] Ordered Clinical summary pro vided to patient WELL WOMAN - ESTABLISHED PT with BAN WILKES RN [facility] 08/13/2021 Last Documented On 2 11:01AM ; [facility] Ordered weight loss diet WELL WOMAN - ES TABLISHED PT with BAN WILKES RN [facility] 08/13/2021 Last Documented On 2 11:01AM ; [facility] Ordered Clinical summary pro vided to patient WELL WOMAN - ESTABLISHED PT with BAN WILKES RN [facility] 06/22/2020 Last Documented On 1 10:00AM ; [facility] Ordered Clinical summary pro vided to patient INFECTIOUS DISEASE TECHNICIAN EXAM with BAN WILKES RN [facility] 06/01/2019 Last Documented On 0 9:14AM ; [facility] Ordered Clinical summary pro vided to patient ANNUAL SCREENER PERFUMER EXAM with BAN WILKES RN [facility] 05/28/2018 Last Documented On 9 9:44AM ; [facility] Ordered Clinical summary pro vided to patient NEW INFECTIOUS DISEASE TECHNICIAN EXAM with BAN WILKES RN [facility] 05/27/2017 Last Documented On 8 2:51PM ; [facility] Pending Tests Order Diagnosis Results Due Ordering P rovider Lab LIPID PANEL WITH REF LEYDA TO DIRECT LDL 12/02/22 RAY ROCK MD Last Documented On 3 4:54PM ; [facility] Instructions to patient Instructed to call if excess shreyas bleeding or abdominal/pelvic pain Last Documented On 3 10:49AM ; [facility] Instructions For Patient: Mo nthly Self Breast Exam Last Documented On 3 10:49AM ; [facility] Recommend diet and exercise at least 30 min three times per week Last Documented On 3 10:49AM ; [facility] Instructed to call if excess shreyas bleeding or abdominal/pelvic pain Last Documented On 2 10:45AM ; [facility] Instructions For Patient: Mo nthly Self Breast Exam Last Documented On 2 10:45AM ; [facility] Recommend diet and exercise at least 30 min three times per week Last Documented On 2 10:45AM ; [facility] Instructions for patient : B reast Self Exam discussed and technique reviewed Last Documented On 1 9:40AM ; [facility] Use a condom during sexual i ntercourse Last Documented On 1 9:40AM ; [facility] Instructed to call if excess shreyas bleeding or abdominal/pelvic pain Last Documented On 1 9:40AM ; [facility] Recommend diet and exercise at least 30 min three times per week Last Documented On 1 9:40AM ; [facility] Instructions for patient : B reast Self Exam discussed and technique reviewed Last Documented On 0 8:54AM ; [facility] Instructed to call if excess shreyas bleeding or abdominal/pelvic pain Last Documented On 0 8:54AM ; [facility] Recommend diet and exercise at least 30 min three times per week Last Documented On 0 8:54AM ; [facility] Instructions for patient : B reast Self Exam discussed and technique reviewed Last Documented On 9 8:40AM ; [facility] Instructed to call if excess shreyas bleeding or abdominal/pelvic pain Last Documented On 9 8:40AM ; [facility] Recommend diet and exercise at least 30 min three times per week Last Documented On 9 8:40AM ; [facility] Instructions for patient : B reast Self Exam discussed and technique reviewed Last Documented On 8 2:10PM ; [facility] Instructed to call if excess shreyas bleeding or abdominal/pelvic pain Last Documented On 8 2:10PM ; [facility] Recommend diet and exercise at least 30 min three times per week Last Documented On 8 2:10PM ; [facility] Education and Decision Aids were provided during visit for: Patient education :Pt. infor med of CT of abdomen and pelvis results today and handout given on HSG procedure. Pt. to be notified of all results for plan of care as well as need for surgical consult post HSG Last Documented On 3 2:36PM ; [facility] Patient counseling : I discu ssed with the patient possible causes of abnormal Pap smear and recommended evaluation. Potential treatments were also discussed Last Documented On 3 2:32PM ; [facility] Patient counseling : Use of contraceptives discussed in detail including rare occurrence of heart attack, stroke, and leg clots. Patient understands that smoking increases the risk of serious side effects with any steroid-based contraceptive method Last Documented On 3 2:38PM ; [facility] Patient education RE: warnin g signals associated with hormonal contraceptive use including abdominal, chest, or leg pain, headaches or visual disturbances Last Documented On 3 10:49AM ; [facility] Patient Education: Daily jos cium and vitamin D Last Documented On 3 10:49AM ; [facility] Patient education RE: warnin g signals associated with hormonal contraceptive use including abdominal, chest, or leg pain, headaches or visual disturbances Last Documented On 2 10:45AM ; [facility] Patient Education: Daily jos cium and vitamin D Last Documented On 2 10:45AM ; [facility] Patient counseling : I discu ssed with the patient possible causes of abnormal Pap smear and recommended evaluation. Potential treatments were also discussed Last Documented On 1 9:44AM ; [facility] Patient education RE: warnin g signals associated with hormonal contraceptive use including abdominal, chest, or leg pain, headaches or visual disturbances Last Documented On 1 9:40AM ; [facility] Patient Education: Daily jos cium and vitamin D Last Documented On 1 9:40AM ; [facility] Patient education RE: warnin g signals associated with hormonal contraceptive use including abdominal, chest, or leg pain, headaches or visual disturbances Last Documented On 0 8:54AM ; [facility] Patient Education: Daily jos cium and vitamin D Last Documented On 0 8:54AM ; [facility] Patient education RE: warnin g signals associated with hormonal contraceptive use including abdominal, chest, or leg pain, headaches or visual disturbances Last Documented On 9 8:40AM ; [facility] Patient Education: Daily jos cium and vitamin D Last Documented On 9 8:40AM ; [facility] Patient counseling : Use of contraceptives discussed in detail including rare occurrence of heart attack, stroke, and leg clots. Patient understands that smoking increases the risk of serious side effects with any steroid-based contraceptive method Last Documented On 8 8:08AM ; [facility] Patient counseling : Use of oral contraceptives discussed in detail including rare occurrence of heart attack, stroke, and leg clots. Patient understands that smoking increases the risk of serious side effects with any steroid-based contraceptive method Last Documented On 8 2:51PM ; [facility] Patient Education: Daily jos cium and vitamin D Last Documented On 8 2:10PM ; [facility] control consent review ed and signed Last Documented On 8 2:44PM ; [facility] Assessments Includes: Assessments for all patient encounters Findings Encounter Date Assessment of visit for: dunia veillance of contraceptive CONSULTATION- ESTABLISHED PATIENT with RAY ROCK MD 12/02/2022 Last Documented On 3 4:54PM ; [facility] Hyperlipidemia CONSULTATION- ESTABLISHED PAT IENT with RAY ROCK MD 12/02/2022 Last Documented On 3 4:54PM ; [facility] Assessment of abnormal Pap s mear of cervix FOLLOW UP with BAN WILKES RN [facility] 09/19/2022 Last Documented On 3 2:42PM ; [facility] Contraceptive surveillance FOLLOW UP with BAN WILKES RN [facility] 09/19/2022 Last Documented On 3 2:42PM ; [facility] Encounter for contraceptive management, sterilization FOLLOW UP with BAN WILKES RN [facility] 09/19/2022 Last Documented On 3 2:42PM ; [facility] NORMAL FEMALE EXAM WELL WOMAN - ESTABLI SHED PT with BAN WILKES RN [facility] 08/15/2022 Last Documented On 3 12:01PM ; [facility] Screen malignant neoplasm cervix WELL WO MAN - ESTABLISHED PT with BAN WILKES RN [facility] 08/15/2022 Last Documented On 3 12:01PM ; [facility] NORMAL FEMALE EXAM WELL WOMAN - ESTABLI SHED PT with BAN WILKES RN [facility] 08/13/2021 Last Documented On 2 11:01AM ; [facility] Screen malignant neoplasm cervix WELL WO MAN - ESTABLISHED PT with BAN WILKES RN [facility] 08/13/2021 Last Documented On 2 11:01AM ; [facility] Assessment of abnormal Pap s mear of cervix FOLLOW UP with BAN WILKSE RN [facility] 08/09/2020 Last Documented On 1 9:56AM ; [facility] NORMAL FEMALE EXAM WELL WOMAN - ESTABLI SHED PT with BAN WILKES RN [facility] 06/22/2020 Last Documented On 1 10:00AM ; [facility] Screen malignant neoplasm cervix WELL WO MAN - ESTABLISHED PT with BAN WILKES RN [facility] 06/22/2020 Last Documented On 1 10:00AM ; [facility] Dysfunctional uterine bleedi ng resolved on current OCP INFECTIOUS DISEASE TECHNICIAN EXAM with BAN WILKES RN [facility] 06/01/2019 Last Documented On 0 9:14AM ; [facility] NORMAL FEMALE EXAM INFECTIOUS DISEASE TECHNICIAN EXAM with BAN Gupta [facility] 06/01/2019 Last Documented On 0 9:14AM ; [facility] Screen malignant neoplasm cervix INFECTIOUS DISEASE TECHNICIAN EXAM with Benjamin WILKES RN [facility] 06/01/2019 Last Documented On 0 9:14AM ; [facility] Dysfunctional uterine bleeding ANNUAL PM P EXAM with BAN WILKES RN [facility] 05/28/2018 Last Documented On 9 9:44AM ; [facility] Family history of malignant female breast neoplasm ANNUAL SCREENER PERFUMER EXAM with BAN WILKES RN [facility] 05/28/2018 Last Documented On 9 9:44AM ; [facility] NORMAL FEMALE EXAM ANNUAL SCREENER PERFUMER EXAM with BAN WILKES RN [facility] 05/28/2018 Last Documented On 9 9:44AM ; [facility] Screen malignant neoplasm cervix ANNUAL SCREENER PERFUMER EXAM with BAN WILKES RN [facility] 05/28/2018 Last Documented On 9 9:44AM ; [facility] Encounter for contraceptive surveillance, unspecified 3 MONTH CHECK with BAN WILKES RN [facility] 08/26/2017 Last Documented On 8 8:29AM ; [facility] Dysfunctional uterine bleeding NEW INFECTIOUS DISEASE TECHNICIAN EXAM with BAN WILKES RN [facility] 05/27/2017 Last Documented On 8 2:51PM ; [facility] NORMAL FEMALE EXAM NEW INFECTIOUS DISEASE TECHNICIAN EXAM with BAN PAUL RN [facility] 05/27/2017 Last Documented On 8 2:51PM ; [facility] Screen malignant neoplasm cervix NEW INFECTIOUS DISEASE TECHNICIAN EXAM with BAN WILKES RN [facility] 05/27/2017 Last Documented On 8 2:51PM ; [facility] Instructions Includes: Instructions for all patient encounters Instructions to patient Instructed to call if excess shreyas bleeding or abdominal/pelvic pain Last Documented On 3 10:49AM ; [facility] Instructions For Patient: Mo nthly Self Breast Exam Last Documented On 3 10:49AM ; [facility] Recommend diet and exercise at least 30 min three times per week Last Documented On 3 10:49AM ; [facility] Instructed to call if excess shreyas bleeding or abdominal/pelvic pain Last Documented On 2 10:45AM ; [facility] Instructions For Patient: Mo nthly Self Breast Exam Last Documented On 2 10:45AM ; [facility] Recommend diet and exercise at least 30 min three times per week Last Documented On 2 10:45AM ; [facility] Instructions for patient : B reast Self Exam discussed and technique reviewed Last Documented On 1 9:40AM ; [facility] Use a condom during sexual i ntercourse Last Documented On 1 9:40AM ; [facility] Instructed to call if excess shreyas bleeding or abdominal/pelvic pain Last Documented On 1 9:40AM ; [facility] Recommend diet and exercise at least 30 min three times per week Last Documented On 1 9:40AM ; [facility] Instructions for patient : B reast Self Exam discussed and technique reviewed Last Documented On 0 8:54AM ; [facility] Instructed to call if excess shreyas bleeding or abdominal/pelvic pain Last Documented On 0 8:54AM ; [facility] Recommend diet and exercise at least 30 min three times per week Last Documented On 0 8:54AM ; [facility] Instructions for patient : B reast Self Exam discussed and technique reviewed Last Documented On 9 8:40AM ; [facility] Instructed to call if excess shreyas bleeding or abdominal/pelvic pain Last Documented On 9 8:40AM ; [facility] Recommend diet and exercise at least 30 min three times per week Last Documented On 9 8:40AM ; [facility] Instructions for patient : B reast Self Exam discussed and technique reviewed Last Documented On 8 2:10PM ; [facility] Instructed to call if excess shreyas bleeding or abdominal/pelvic pain Last Documented On 8 2:10PM ; [facility] Recommend diet and exercise at least 30 min three times per week Last Documented On 8 2:10PM ; [facility] Education and Decision Aids were provided during visit for: Patient education :Pt. infor med of CT of abdomen and pelvis results today and handout given on HSG procedure. Pt. to be notified of all results for plan of care as well as need for surgical consult post HSG Last Documented On 3 2:36PM ; [facility] Patient counseling : I discu ssed with the patient possible causes of abnormal Pap smear and recommended evaluation. Potential treatments were also discussed Last Documented On 3 2:32PM ; [facility] Patient counseling : Use of contraceptives discussed in detail including rare occurrence of heart attack, stroke, and leg clots. Patient understands that smoking increases the risk of serious side effects with any steroid-based contraceptive method Last Documented On 3 2:38PM ; [facility] Patient education RE: warnin g signals associated with hormonal contraceptive use including abdominal, chest, or leg pain, headaches or visual disturbances Last Documented On 3 10:49AM ; [facility] Patient Education: Daily jos cium and vitamin D Last Documented On 3 10:49AM ; [facility] Patient education RE: warnin g signals associated with hormonal contraceptive use including abdominal, chest, or leg pain, headaches or visual disturbances Last Documented On 2 10:45AM ; [facility] Patient Education: Daily jos cium and vitamin D Last Documented On 2 10:45AM ; [facility] Patient counseling : I discu ssed with the patient possible causes of abnormal Pap smear and recommended evaluation. Potential treatments were also discussed Last Documented On 1 9:44AM ; [facility] Patient education RE: warnin g signals associated with hormonal contraceptive use including abdominal, chest, or leg pain, headaches or visual disturbances Last Documented On 1 9:40AM ; [facility] Patient Education: Daily jos cium and vitamin D Last Documented On 1 9:40AM ; [facility] Patient education RE: vanna chavez signals associated with hormonal contraceptive use including abdominal, chest, or leg pain, headaches or visual disturbances Last Documented On 0 8:54AM ; [facility] Patient Education: Daily jos cium and vitamin D Last Documented On 0 8:54AM ; [facility] Patient education RE: warnin g signals associated with hormonal contraceptive use including abdominal, chest, or leg pain, headaches or visual disturbances Last Documented On 9 8:40AM ; [facility] Patient Education: Daily jos cium and vitamin D Last Documented On 9 8:40AM ; [facility] Patient counseling : Use of contraceptives discussed in detail including rare occurrence of heart attack, stroke, and leg clots. Patient understands that smoking increases the risk of serious side effects with any steroid-based contraceptive method Last Documented On 8 8:08AM ; [facility] Patient counseling : Use of oral contraceptives discussed in detail including rare occurrence of heart attack, stroke, and leg clots. Patient understands that smoking increases the risk of serious side effects with any steroid-based contraceptive method Last Documented On 8 2:51PM ; [facility] Patient Education: Daily jos cium and vitamin D Last Documented On 8 2:10PM ; [facility] control consent review ed and signed Last Documented On 8 2:44PM ; [facility] Medical Equipment - Implanted Devices Includes: Current and historical Devices No Medical Equipment Recorded Medications Includes: Current and historical Medications Current Medications (continue as prescribed) ZyrTEC Allergy 10 MG Oral Tablet 08/13/2021 Provider : Diagnosis: Last Documented On 08/13/2021 10:38AM By Annette Andres ; [facility] Womens Multivitamin Oral Tablet 06/22/2020 Provider: Diagnosis: Last Documented On 1 9:20AM By MOISÉS DONALDSON ; [facility] Past Medications on file Lo Loestrin Fe 1 MG-10 MCG / 10 MCG Oral Tablet 09/19/2022 - 12/12/2022 Provider: BAN VELASQUEZ BC Diagnosis: Encounter for surveillance of contraceptives, unspecified One tablet daily TAKE DIRECTED Last Documented On 3 2:34PM By BAN RICARDO ; [facility] Lo Loestrin Fe 1 MG-10 MCG / 10 MCG Oral Tablet 08/15/2022 - 09/19/2022 Provider: BAN VELASQUEZ BC Diagnosis: Other specified abnormal uterine and vaginal bleeding One tablet daily TAKE DIRECTED Last Documented On 3 2:34PM By BAN RICARDO ; [facility] Condoms Miscellaneous 08/15/2022 - 09/14/2022 Provider: BAN VELASQUEZ BC Diagnosis: Other specified abnormal uterine and vaginal bleeding as directed PLEASE DISPENSE MAGNUM CONDOMS Last Documented On 3 12:00PM By BAN RICARDO ; [facility] 03/15 1-20 MG-MCG Oral Tablet 07/03/2022 - 09/19/2022 Provider: BAN VELASQUEZ BC Diagnosis: Other specified abnormal uterine and vaginal bleeding One tablet daily Dispense 3 packs and take active tablets only for menstrual suppression Last Documented On 09/19/2022 1:58PM By Annette Andres ; [facility] Julyl 03/15 1-20 MG-MCG Oral Tablet 08/15/2021 - 07/03/2022 Provider: BAN VELASQUEZ BC Diagnosis: Other specified abnormal uterine and vaginal bleeding One tablet daily Dispense 3 packs and take active tablets only for menstrual suppression Last Documented On 3 10:08AM By BAN RICARDO ; [facility] Lo Loestrin Fe 1 MG-10 MCG / 10 MCG Oral Tablet 08/13/2021 - 08/15/2021 Provider: BAN VELASQUEZ BC Diagnosis: One tablet daily Last Documented On 2 2:46PM By BAN RICARDO ; [facility] Lo Loestrin Fe 1 MG-10 MCG / 10 MCG Oral Tablet 09/27/2020 - 08/15/2022 Provider: BAN WILKES RN [facility] Diagnosis: Other specified abnormal uterine and vaginal bleeding One tablet daily TAKE DIRECTED Last Documented On 3 12:00PM By BAN RICARDO ; [facility] Lo Loestrin Fe 1 MG-10 MCG / 10 MCG Oral Tablet 07/26/2020 - 08/13/2021 Provider: BAN Gupta [facility] Diagnosis: One tablet daily Last Documented On 2 11:00AM By BAN PRESLEY ; [facility] Lo Loestrin Fe 1 MG-10 MCG / 10 MCG Oral Tablet 07/26/2020 - 09/27/2020 Provider: BAN WILKES RN [facility] Diagnosis: Other specified abnormal uterine and vaginal bleeding One tablet daily TAKE DIRECTED Last Documented On 1 1:19PM By BAN PRESLEY ; [facility] Lo Loestrin Fe 1 MG-10 MCG / 10 MCG Oral Tablet 06/22/2020 - 07/26/2020 Provider: ABN WILKSE RN [facility] Diagnosis: Other specified abnormal uterine and vaginal bleeding One tablet daily TAKE DIRECTED Last Documented On 1 3:21PM By BAN PRESLEY ; [facility] Biotin Plus Keratin 29894-258 MCG-MG Oral Tablet 06/22/2020 - 08/13/2021 Provider: Diagnosis: Last Documented On 08/13/2021 10:38AM By Annette Andres ; [facility] B-12 5000 MCG Oral Capsule 06/22/2020 - 08/13/2021 Pro vider: Diagnosis: Last Documented On 08/13/2021 10:37AM By Annette Andres ; [facility] Glucosamine-Chondroitin 1500 -1200 MG/30ML Oral Liquid 06/22/2020 - 08/13/2021 Provider: Diagnosis: not liquid- pill form Last Documented On 08/13/2021 10:38AM By Annette Andres ; [facility] Lo Loestrin Fe 1 MG-10 MCG / 10 MCG Oral Tablet 11/24/2019 - 06/22/2020 Provider: BAN VELASQUEZ Diagnosis: Other specified abnormal uterine and vaginal bleeding One tablet daily TAKE DIRECTED Last Documented On 1 9:54AM By BAN RICARDO ; [facility] Junel 03/15 1-20 MG-MCG Oral Tablet 10/28/2019 - 11/24/2019 Provider: BAN ALMANZAR Diagnosis: Other specified abnormal uterine and vaginal bleeding One tablet daily Last Documented On 0 2:31PM By BAN RICARDO ; [facility] Lo Loestrin Fe 1 MG-10 MCG / 10 MCG Oral Tablet 06/01/2019 - 10/28/2019 Provider: BAN VELASQUEZ BC Diagnosis: Other specified abnormal uterine and vaginal bleeding One tablet daily USE DIRECTED Last Documented On 0 2:26PM By BAN RICARDO ; [facility] Lo Loestrin Fe 1 MG-10 MCG /10 MCG Oral Tablet 05/28/2018 - 06/01/2019 Provider: BAN ALMANZAR Diagnosis: Other specified abnormal uterine and vaginal bleeding One tablet daily USE DIRECTED Last Documented On 0 9:12AM By BAN RICARDO ; [facility] Sudafed 30MG Oral Tablet 05/28/2018 - 08/13/2021 Provi esau: Diagnosis: Last Documented On 08/13/2021 10:38AM By Annette Anrdes ; [facility] Lo Loestrin Fe 1 MG-10 MCG /10 MCG Oral Tablet 11/16/2017 - 05/28/2018 Provider: BAN VELASQUEZ BC Diagnosis: Other specified abnormal uterine and vaginal bleeding One tablet daily USE DIRECTED Last Documented On 9 9:02AM By BAN RICARDO ; [facility] Lo Loestrin Fe 1 MG-10 MCG /10 MCG Oral Tablet 08/26/2017 - 11/14/2017 Provider: BAN VELASQUEZ BC Diagnosis: Encounter for surveillance of contraceptives, unspecified One tablet daily USE DIRECTED Last Documented On 8 10:35AM By BAN RICARDO ; [facility] Aviane 0.1-20MG-MCG Oral Tablet 08/26/2017 - 9 Provider: Diagnosis: Last Documented On 9 10:32AM By BAN RICARDO ; [facility] Aviane 0.1-20MG-MCG Oral Tablet 05/27/2017 - 08/19/2017 Provider: BAN VELASQUEZ BC Diagnosis: Other specified abnormal uterine and vaginal bleeding TAKE 1 TAB DAILY START PACK Friday AFTER MENSES BEGINS Last Documented On 8 2:48PM By BAN VELASQUEZ-BC ; [facility] Medications Administered Includes: Administered Medications in patient's chart No Administered Medications Recorded Results Includes: Results from 02/23/2023 through 02/24/2024 No Results Recorded For Specified Dates History of Present Illness History of Present Illness not supported for this document type No History of Present Illness Recorded Social History Description Last Updated Alcohol use: 2 drinks or less per day oc c 08/15/2022 Last Documented On 3 12:01PM ; [facility] control is being practiced BTL Last Documented On 3 12:01PM ; [facility] Current nonsmoker 08/15/2022 Last Documented On 3 12:01PM ; [facility] Educational level 08/15/2022 Last Documented On 3 12:01PM ; [facility] Exercising regularly Activities 08/16/19 Last Documented On 3 12:01PM ; [facility] Former smoker 08/15/2022 Last Documented On 3 12:01PM ; [facility] In monogamous relationship 08/15/2022 Last Documented On 3 12:01PM ; [facility] Marital history 08/15/2022 Last Documented On 3 12:01PM ; [facility] Non-smoker 08/15/2022 Last Documented On 3 12:01PM ; [facility] Not using alcohol 08/15/2022 Last Documented On 3 12:01PM ; [facility] Not using drugs 08/15/2022 Last Documented On 3 12:01PM ; [facility] 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 Last Documented On 3 12:01PM ; [facility] Sexually active 08/15/2022 Last Documented On 3 12:01PM ; [facility] Sexually active with 1 partners in the l ast year 08/15/2022 Last Documented On 3 12:01PM ; [facility] Tobacco non-user 08/15/2022 Last Documented On 3 12:01PM ; [facility] Currently 08/13/2021 Last Documented On 2 11:01AM ; [facility] Smoking Status Unknown Procedures and Surgical History Surgical History Last Updated History of tubal ligation 2003 Dr Zurita in [place] 12/02/2022 Last Documented On 3 4:54PM ; [facility] History of appendectomy 01/27/202108/13 Last Documented On 2 11:01AM ; [facility] Medical History Includes: Medical History in patient's chart Description Last Updated Contraception: tubal 2004 [place]- Dr Zurita 12/02/2022 Last Documented On 3 4:54PM ; [facility] Last pap smear date 08/15/2022 08/15/22 Last Documented On 3 4:54PM ; [facility] Result: normal no ECC; repeat pap 3 WNL 12/02/2022 Last Documented On 3 4:54PM ; [facility] Last mammogram date: 09/19/2022 3 Last Documented On 3 4:54PM ; [facility] Result: normal [facility] 12/02/2022 Last Documented On 3 4:54PM ; [facility] LMP: 08/15/2022 Just spotting every once and a while 08/15/2022 Last Documented On 3 12:01PM ; [facility] History of screening mammogram was perfo rmed 08/202108/15/2022 Last Documented On 3 12:01PM ; [facility] A mammogram was performed 08/13/2021 Last Documented On 2 11:01AM ; [facility] History of cervical Pap smear 06/22/2020 WNL no ECC 08/09/2020 Last Documented On 1 9:56AM ; [facility] Vaginal delivery x 2 06/22/2020 Last Documented On 1 10:00AM ; [facility] Primary Care Provider: Kena Daniel- part of [place] system 06/22/2020 Last Documented On 1 10:00AM ; [facility] Sexually active 06/01/2019 Last Documented On 0 9:14AM ; [facility] History of dysfunctional uterine bleedin g 05/28/2018 Last Documented On 9 9:44AM ; [facility] Status post tubal ligation 200305/28/19 Last Documented On 8 2:51PM ; [facility] Heart Disease- paternal grandfather ~hyp ertension- both sides 05/27/2017 Last Documented On 8 2:51PM ; [facility] 2 05/27/2017 Last Documented On 8 2:51PM ; [facility] Para 2 05/27/2017 Last Documented On 8 2:51PM ; [facility] Family History Includes: Family History in patient's chart Description Last Updated Maternal history of malignan t female breast neoplasm mom in 50's dx. 2018 intraductal carcinoma, ER+ MD+ HER 2 - 12/02/2022 Last Documented On 3 4:54PM ; [facility] Paternal uncle's history of malignant neoplasm of large intestine 2 different paternal uncles ~maternal uncle 12/02/2022 Last Documented On 3 4:54PM ; [facility] Family history of malignant neoplasm of large intestine 2 different paternal uncles ~maternal uncle 06/22/2020 Last Documented On 1 10:00AM ; [facility] Heart Disease- paternal grandfather ~hyp ertension- both sides 05/28/2018 Last Documented On 9 9:44AM ; [facility] M uncle Prostate CA 05/28/2018 Last Documented On 9 9:44AM ; [facility] Family history of malignant female breast neoplasm mom in 50's dx. 2018 intraductal carcinoma, ER+ MD+ HER 2 - 05/28/2018 Last Documented On 9 9:44AM ; [facility] Family history of diabetes m ellitus paternal grandparents ~sister during 05/27/2017 Last Documented On 8 2:51PM ; [facility] Review of Systems Review of Systems not supported for this document type No Review of Systems Recorded Mental Status No Mental Status Recorded Functional Status No Functional Status Recorded Physical Exam Physical Exam not supported for this document type No Physical Exam Recorded Allergies Includes: Active, inactive, and resolved Allergies No Known Allergies Insurance Includes: Active Insurance Policies Plan Name Member ID Group # Subscriber Relationship Effect shreyas Dates 1 - [facility] [id number] DAYA WHITE Self Clinical Notes Includes: Signed Clinical Notes starting from 03/15/2022 No Clinical Notes Recorded
--- OUTSIDE RECORDS SUMMARY | 2024-02-24 06:20 | XMS_ITS | Clinical Summary ---
Author Organization [facility] Address [address] [place] [address] Phone Care Team Providers Care Department Of Sociology Chair Name Role Phone SHWETA SCOTT, RAY Alexander Unavailable [phone] SHY VELIZ MD Primary Care Provider [phone] Reason for Visit and Chief Complaint The Chief Complaint is: Consult to discuss clip placement Problems Includes: Problems addressed during this encounter and other active Problems Current Visit Onset Date Resolved Date Provider Conditio n Status Hyperlipidemia 12/02/2022 RAY Pickett MD Active Last Documented On 12/02/2022 4:44PM ; [facility] Note: Unchanged Visit For: Contraceptive Surveillance 12/02/2022 RAY ROCK MD Active Last Documented On 12/02/2022 4:44PM ; [facility] Note: Unchanged Past Visits Onset Date Resolved Date Provider Condition Status Dysfunctional Uterine Bleeding 05/28/2018 EBONIE WILKES RN [facility] Active Last Documented On 05/28/2018 9:42AM ; [facility] Note: Unchanged Plan of Treatment Pending Tests Order Diagnosis Results Due Ordering P rovider Lab LIPID PANEL WITH REF LEYDA TO DIRECT LDL 12/02/22 RAY ROCK MD Last Documented On 4:54PM ; [facility] Assessments Includes: Assessments from this encounter Findings - Visit for: surveillance of contraceptive - Last Documented On 12/02/2022 4:54PM ; [facility] - Hyperlipidemia - Last Documented On 12/02/2022 4:54PM ; [facility] Medical Equipment - Implanted Devices Includes: Current Devices No Medical Equipment Recorded Medications Includes: Medications discussed during this encounter and other current Medications Current Medications (continue as prescribed) ZyrTEC Allergy 10 MG Oral Tablet 08/13/2021 Provider : Diagnosis: Last Documented On 08/13/2021 10:38AM By Annette Andres ; [facility] Womens Multivitamin Oral Tablet 06/22/2020 Provider: Diagnosis: Last Documented On 1 9:20AM By MOISÉS DONALDSON ; [facility] Past Medications on file Lo Loestrin Fe 1 MG-10 MCG / 10 MCG Oral Tablet 09/19/2022 - 12/12/2022 Provider: EBONIE VELASQUEZ Diagnosis: Encounter for surveillance of contraceptives, unspecified One tablet daily TAKE DIRECTED Last Documented On 3 2:34PM By EBONIE RICARDO ; [facility] Condoms Miscellaneous 08/15/2022 - 09/14/2022 Provider: EBONIE ALMANZAR Diagnosis: Other specified abnormal uterine and vaginal bleeding as directed PLEASE DISPENSE MAGNUM CONDOMS Last Documented On 3 12:00PM By EBONIE RICARDO ; [facility] Aviane 0.1-20MG-MCG Oral Tablet 05/27/2017 - 08/19/2017 Provider: EBONIE ALMANZAR Diagnosis: Other specified abnormal uterine and vaginal bleeding TAKE 1 TAB DAILY START PACK Friday AFTER MENSES BEGINS Last Documented On 8 2:48PM By EBONIE RICARDO ; [facility] Medications Administered Includes: Administered Medications from this encounter No Administered Medications Recorded Vital Signs Includes: Vital Signs from this encounter Vital Name 12/02/2022 02:57P Blood Pressure Sitting (mmHg) 100/60 Temp-Oral (F) 98.4 Height (in) 61.75 Weight (lb) 150.6 Body Mass Index 27.8 Body Surface Area 1.7 Last Documented: On 12/02/2022 3:16PM ; [facility] Results Includes: Results discussed during this encounter No Results Recorded For Specified Dates History of Present Illness Includes: History of Present Illness from this encounter INDIRA WHITE is a 42 year old female. - Allergy list reviewed - Medication list reviewed Pt presents to f/u on concerns about Filshie Clip displacement questioned when looking for other things. She had back pain after a fall and had X-rays at [place] where they noted clips (plural) in the right adnexae. Pt thought that with both clips to the right of the midline that one wasn't attached. she denies pain , bleeding, or abdominal problems. For f/u that she didn't do till 09/19/22 at [facility] CT showed the right clip adjacent to the right anterior uterus. The second clip was midline between the bladder and the uterus. Both clips in the pelvis in reasonable positions. For further f/u to see if they are working she had HSG done on 10/01/22 at [facility] that showed the tubes sealed bilaterally. Reports are reviewed directly with the patient. She expresses understanding. 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 Last Documented On 3 2:43PM ; [facility] Educational level 08/15/2022 Last Documented On 3 2:43PM ; [facility] Exercising regularly Activities 08/16/19 Last Documented On 3 2:43PM ; [facility] Former smoker 08/15/2022 Last Documented On 3 2:43PM ; [facility] In monogamous relationship 08/15/2022 Last Documented On 3 2:43PM ; [facility] Marital history 08/15/2022 Last Documented On 3 2:43PM ; [facility] Not using alcohol 08/15/2022 Last Documented On 3 2:43PM ; [facility] Not using drugs 08/15/2022 Last Documented On 3 2:43PM ; [facility] 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 Last Documented On 3 2:43PM ; [facility] Sexually active 08/15/2022 Last Documented On 3 2:43PM ; [facility] Sexually active with 1 partners in the l ast year 08/15/2022 Last Documented On 3 2:43PM ; [facility] Tobacco non-user 08/15/2022 Last Documented On 3 2:43PM ; [facility] Smoking Status Unknown Procedures and Surgical History Includes: Procedures from this encounter Procedures Code Diagnosis Performing Provider Service L ocation Service Date history of cervical Pap smear 08/15/2022 Normal No ECC; Rpt pap 09/19/22 WNL [id number] Last Documented On 3 2:51PM ; [facility] Surgical History Last Updated History of tubal ligation 2003 Dr Zurita in [place] 12/02/2022 Last Documented On 3 4:54PM ; [facility] History of appendectomy 01/27/202108/13 Last Documented On 3 2:43PM ; [facility] Medical History Includes: Medical History addressed during this encounter Description Last Updated Contraception: tubal 2003 [place]- Dr Zurita 12/02/2022 Last Documented On 3 4:54PM ; [facility] Last pap smear date 08/15/2022 08/15/22 Last Documented On 3 4:54PM ; [facility] Result: normal no ECC; repeat pap 3 WNL 12/02/2022 Last Documented On 3 4:54PM ; [facility] Last mammogram date: 09/19/2022 3 Last Documented On 3 4:54PM ; [facility] Result: normal [facility] 12/02/2022 Last Documented On 3 4:54PM ; [facility] LMP: 08/15/2022 Just spotting every once and a while 08/15/2022 Last Documented On 3 2:43PM ; [facility] Vaginal delivery x 2 06/22/2020 Last Documented On 3 2:43PM ; [facility] Primary Care Provider: Kena Rivera part of [place] system 06/22/2020 Last Documented On 3 2:43PM ; [facility] Sexually active 06/01/2019 Last Documented On 3 2:43PM ; [facility] History of dysfunctional uterine bleedin g 05/28/2018 Last Documented On 3 2:43PM ; [facility] Heart Disease- paternal grandfather ~hyp ertension- both sides 05/27/2017 Last Documented On 3 2:43PM ; [facility] 2 05/27/2017 Last Documented On 3 2:43PM ; [facility] Para 2 05/27/2017 Last Documented On 3 2:43PM ; [facility] Family History Includes: Family History addressed during this encounter Description Last Updated Maternal history of malignan t female breast neoplasm mom in 50's dx. 2018 intraductal carcinoma, ER+ NE+ HER 2 - 12/02/2022 Last Documented On 3 4:54PM ; [facility] Paternal uncle's history of malignant neoplasm of large intestine 2 different paternal uncles ~maternal uncle 12/02/2022 Last Documented On 3 4:54PM ; [facility] Heart Disease- paternal grandfather ~hyp ertension- both sides 05/28/2018 Last Documented On 3 2:43PM ; [facility] M uncle Prostate CA 05/28/2018 Last Documented On 3 2:43PM ; [facility] Family history of diabetes m ellitus paternal grandparents ~sister during 05/27/2017 Last Documented On 3 2:43PM ; [facility] Review of Systems Includes: Review of Systems from this encounter No Review of Systems Recorded Mental Status Includes: Mental Status from this encounter No Mental Status Recorded Functional Status Includes: Functional Status from this encounter No Functional Status Recorded Physical Exam Includes: Physical Exam from this encounter Allergies Includes: Active Allergies No Known Allergies Encounters Encounter Provider Location Date Check-In Time Check-Out Time Diagnosis [facility] CONSULTATION- ESTABLISHED PATIENT RAY ROCK MD [facility] 023 2:42PM 3:49PM Hyperlipidemia,A ssessment of Visit For: Contraceptive Surveillance Insurance Includes: Active Insurance Policies Plan Name Member ID Group # Subscriber Relationship Effect shreyas Dates 1 - [facility] [id number] DAYA WHITE Self Clinical Notes Includes: Clinical Notes from this encounter * Progress note Date Encounter Last Documented by 12/02/2022 [facility] CONSULTATION- ESTABLISHED JASON RAY Last documented on 12/02/2022; 4:54 PM, RAY ROCK MD; [facility] Active Problems & Conditions - Dysfunctional Uterine Bleeding - Family History of Breast Neoplasm Malignant Female - Mom - Family History of Diabetes Mellitus - paternal grandparentssister during - Hyperlipidemia - Visit For: Contraceptive Surveillance Chief Complaint The Chief Complaint is: Consult to discuss clip placement. History of Present Illness DAYA WHITE is a 42 year old female. - Allergy list reviewed - Medication list reviewed Pt presents to f/u on concerns about Filshie Clip displacement questioned when looking for other things. She had back pain after a fall and had X-rays at [place] where they noted clips (plural) in the right adnexae. Pt thought that with both clips to the right of the midline that one wasn't attached. she denies pain , bleeding, or abdominal problems. For f/u that she didn't do till 09/19/22 at [facility] CT showed the right clip adjacent to the right anterior uterus. The second clip was midline between the bladder and the uterus. Both clips in the pelvis in reasonable positions. For further f/u to see if they are working she had HSG done on 10/01/22 at [facility] that showed the tubes sealed bilaterally. Reports are reviewed directly with the patient. She expresses understanding. She is worried that they may no longer be on the tubes even though the tubes are sealed and could erode into bowel or other structures or cause abscesses Current Medication - Lo Loestrin Fe 1 MG-10 MCG / 10 MCG Oral Tablet One tablet daily TAKE DIRECTED, 28 days, 2 refills - Womens Multivitamin Oral Tablet 0 days, 0 refills - ZyrTEC Allergy 10 MG Oral Tablet 0 days, 0 refills Past Medical/Surgical History Other: Primary Care Provider: Annette Daniel- part of [place] system Reported: LMP: 08/15/2022 Just spotting every once and a while, Last pap smear date 08/15/22, result: normal no ECC; repeat pap 09/19/22 WNL, Last mammogram date: 09/19/2022 result: normal [facility], and Contraception: tubal 2003 [place]- Dr Zurita. : 2, para 2, and history of the : vaginal delivery x 2. Sexual: Sexually active. Diagnoses: Dysfunctional uterine bleeding Heart Disease- paternal grandfather hypertension- both sides. 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 Tobacco use: Former smoker. Alcohol: Not using alcohol. Drug Use: Not using drugs. Habits: Exercising regularly Activities. Education: Educational level. Marital: Marital history . Sexual: Sexually active. In monogamous relationship. 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 Allergies - No Known Allergies Family History Heart Disease- paternal grandfather hypertension- both sides M uncle Prostate CA Diabetes mellitus paternal grandparents sister during Maternal: Malignant female breast neoplasm mom in 50's dx. 2018 intraductal carcinoma, ER+ NE+ HER 2 - Paternal uncle's: Malignant neoplasm of large intestine 2 different paternal uncles maternal uncle Physical Findings - Vitals taken 12/02/2022 02:57 pm BP-Sitting 100/60 mmHg Temp-Oral 98.4 F Height 61.75 in Weight 150 lbs 9.6 oz Body Mass Index 27.8 kg/m2 Body Surface Area 1.7 m2 Pt is in no distress. No further exam is performed. Assessment - Visit for: surveillance of contraceptive - Hyperlipidemia Previous Tests Pathology: Cytology: Cervical Pap smear 08/15/2022 Normal No ECC; Rpt pap 09/19/22 WNL. Discussed Options for management are discussed. We could do laparoscopy to determine if the clips are still on the tubes directly. We could remove the tubes completely laparoscopically. But are either of these justifyable as she is asymptomatic. We could send her films for second opinion/over reading to confirm tubas are sealed and likely not loose floating clips. At this point pt expresses understanding and confirms she is asymptomaitic. She will follow for symptoms abdominally or in the pelvis to suggest need for re evaluation. She will let us know if she changes her mind aboug the re read of studies at one of the [facility]. Pt also wants to have her lipid panel repeated to see if she has been able to bring her levels down. She was placed on a low dose OCP due to her levels, but not her insurance doesn't want to cover it. Reviewed that the next dose up from her 03/05 OCP is double that at 03/15. She wants to draw the lipid level in about 3-4 wks as she has about 6 wks of pills left so she can be seen with results and hopefully qualify for the higher dose pills she likes because she uses them for cycle contril. (she will print out a copy of her former levels from her [facility] file as the were never sent to this office) Lipid level is ordered with a copy to her PCP as well. Plan StartCited - Hyperlipidemia, unspecified Lab: LIPID PANEL WITH REFLEX TO DIRECT LDL EndCited StartCited - Other PHY ORDER/COMMENT pt needs fasting lipid profile E78.[facility] ([place]) with results to [facility]. also to Annette Justice, too. Follow-up to [facility] for fasting lipid draw; return for BP check and review of lipid profile with [facility] in one month EndCited Practice Management [[id number]] Established outpatient, medically appropriate H&P, low level decision making, 20-29 minutes.
--- OUTSIDE RECORDS SUMMARY | 2024-02-24 06:20 | XMS_ITS | Clinical Summary ---
Author Organization [facility] Address [address] [place] [address] Phone Care Team Providers Care Budget Report Clerk Name Role Phone SHWETA SCOTT, RAY Alexander Unavailable [phone] SHY VELIZ MD Primary Care Provider [phone] Reason for Visit and Chief Complaint CHART UPDATE Problems Includes: Problems addressed during this encounter and other active Problems All Visits Onset Date Resolved Date Provider Condition S tatus Hyperlipidemia 12/02/2022 RAY Pickett MD Active Last Documented On 12/02/2022 4:44PM ; [facility] Note: Unchanged Visit For: Contraceptive Surveillance 12/02/2022 RAY ROCK MD Active Last Documented On 12/02/2022 4:44PM ; [facility] Note: Unchanged Dysfunctional Uterine Bleeding 05/28/2018 BAN WILKES RN LORENZO ALMANZAR Active Last Documented On 05/28/2018 9:42AM ; [facility] Note: Unchanged Plan of Treatment No Plan of Treatment Recorded Assessments Includes: Assessments from this encounter No Assessments Recorded Medical Equipment - Implanted Devices Includes: Current Devices No Medical Equipment Recorded Medications Includes: Medications discussed during this encounter and other current Medications Discontinued / Stopped on this date BAN ALMANZAR on 08/13/2021 Lo Loestrin Fe 1 MG-10 MCG / 10 MCG Oral Tablet Provider: BAN LINK P BC Diagnosis: Last Documented On 2:46PM By BAN RICARDO ; [facility] New / Renewed during this visit BAN ALMANZAR on 08/15/2021 Junel 03/15 1-20 MG-MCG Oral Tablet Provider: BAN LINK P 84 day supply: 84 tablet, 3 refills Diagnosis: Other specified abnormal uterine and vaginal bleeding One tablet daily Dispense 3 packs and take active tablets only for menstrual suppression Pharmacy: [address], [address] - Last Documented On 3 10:08AM By BAN RICARDO ; [facility] Current Medications (continue as prescribed) ZyrTEC Allergy 10 MG Oral Tablet 08/13/2021 Provider : Diagnosis: Last Documented On 08/13/2021 10:38AM By Annette Andres ; [facility] Womens Multivitamin Oral Tablet 06/22/2020 Provider: Diagnosis: Last Documented On 1 9:20AM By MOISÉS DONALDSON ; [facility] Past Medications on file Lo Loestrin Fe 1 MG-10 MCG / 10 MCG Oral Tablet 09/19/2022 - 12/12/2022 Provider: BAN VELASQUEZ Diagnosis: Encounter for surveillance of contraceptives, unspecified One tablet daily TAKE DIRECTED Last Documented On 3 2:34PM By BAN RICARDO ; [facility] Condoms Miscellaneous 08/15/2022 - 09/14/2022 Provider: BAN ALMANZAR Diagnosis: Other specified abnormal uterine and vaginal bleeding as directed PLEASE DISPENSE MAGNUM CONDOMS Last Documented On 3 12:00PM By BAN RICARDO ; [facility] Aviane 0.1-20MG-MCG Oral Tablet 05/27/2017 - 08/19/2017 Provider: BAN ALMANZAR Diagnosis: Other specified abnormal uterine and vaginal bleeding TAKE 1 TAB DAILY START PACK Friday AFTER MENSES BEGINS Last Documented On 8 2:48PM By BAN RICARDO ; [facility] Medications Administered Includes: Administered Medications from this encounter No Administered Medications Recorded Results Includes: Results discussed during this encounter No Results Recorded For Specified Dates History of Present Illness Includes: History of Present Illness from this encounter No History of Present Illness Recorded Social History No Social History Recorded - Smoking Status Unknown Procedures and Surgical History Surgical History Last Updated History of tubal ligation 08/05/20050 10/2022 Last Documented On 2 2:43PM ; [facility] History of appendectomy 01/27/202108/13 Last Documented On 2 2:43PM ; [facility] Medical History Includes: Medical History addressed during this encounter Description Last Updated Contraception: tubal 12/02/2022 Last Documented On 2 2:43PM ; [facility] Last pap smear date 08/09/2020 no ECC 10/2022 Last Documented On 2 2:43PM ; [facility] Last mammogram date: 08/17/2020 3 Last Documented On 2 2:43PM ; [facility] Result: normal 12/02/2022 Last Documented On 2 2:43PM ; [facility] LMP: 07/05/2021 usually does not have cyc le but missed pills and had one 08/15/2022 Last Documented On 2 2:43PM ; [facility] History of screening mammogram was perfo rmed 08/17/2020 08/15/2022 Last Documented On 2 2:43PM ; [facility] A mammogram was performed 08/13/2021 Last Documented On 2 2:43PM ; [facility] History of cervical Pap smear 06/22/2020 WNL no ECC 08/09/2020 Last Documented On 2 2:43PM ; [facility] Vaginal delivery x 2 06/22/2020 Last Documented On 2 2:43PM ; [facility] Last Documented On 2 2:43PM ; [facility] Sexually active 06/01/2019 Last Documented On 2 2:43PM ; [facility] History of dysfunctional uterine bleedin g 05/28/2018 Last Documented On 2 2:43PM ; [facility] Status post tubal ligation 2004 05/28/19 18 Last Documented On 2 2:43PM ; [facility] Heart Disease- paternal grandfather ~hyp ertension- both sides 05/27/2017 Last Documented On 2 2:43PM ; [facility] 2 05/27/2017 Last Documented On 2 2:43PM ; [facility] Para 2 05/27/2017 Last Documented On 2 2:43PM ; [facility] Family History Includes: Family History addressed during this encounter Description Last Updated Family history of malignant neoplasm of large intestine 2 different paternal uncles ~maternal uncle 06/22/2020 Last Documented On 2 2:43PM ; [facility] Heart Disease- paternal grandfather ~hyp ertension- both sides 05/28/2018 Last Documented On 2 2:43PM ; [facility] M uncle Prostate CA 05/28/2018 Last Documented On 2 2:43PM ; [facility] Family history of malignant female breast neoplasm mom in 50's dx. 2018 intraductal carcinoma, ER+ CO+ HER 2 - 05/28/2018 Last Documented On 2 2:43PM ; [facility] Family history of diabetes m ellitus paternal grandparents ~sister during 05/27/2017 Last Documented On 2 2:43PM ; [facility] Review of Systems Includes: Review of Systems from this encounter No Review of Systems Recorded Mental Status Includes: Mental Status from this encounter No Mental Status Recorded Functional Status Includes: Functional Status from this encounter No Functional Status Recorded Physical Exam Includes: Physical Exam from this encounter No Physical Exam Recorded Allergies Includes: Active Allergies No Known Allergies Encounters Encounter Provider Location Date Check-In Time Check-Out Time Diagnosis CHART UPDATE BAN WILKES RN LORENZO 08/15/2021 2:43PM 11:59PM Insurance Includes: Active Insurance Policies Plan Name Member ID Group # Subscriber Relationship Effect shreyas Dates 1 - [facility] [id number] DAYA WHITE Self Clinical Notes Includes: Clinical Notes from this encounter No Clinical Notes Recorded
--- OUTSIDE RECORDS SUMMARY | 2024-02-24 06:20 | XMS_ITS | Clinical Summary ---
Author Organization [facility] Address [address] [place] [address] Phone Care Team Providers Care Hand Tacker Name Role Phone SHWETA SCOTT, RAY Alexander Unavailable [phone] SHY VELIZ MD Primary Care Provider [phone] Reason for Visit and Chief Complaint Pt presents for problem in addition to annual exam Pt reports she fell in 02/14 and radiology report of coccyx identified her L Filshie clip was missing. Pt. PCP instructed her to contact her SOLUTION STRATEGIST when she was in their office 05/16. Pt states she was informed her lipid panel was elevated. Pt cont. oncombined OCP for cycle control and only has BTB at times due to continuous use. Pt denies any reportable CV warning sx with estrogen containing OCP, gynecologic annual exam - The Chief Complaint is: WWE. Pt had X-RAY in Feb this year and was told that one of her clips are missing from BTL not sure of which side Problems Includes: Problems addressed during this encounter and other active Problems All Visits Onset Date Resolved Date Provider Condition S tatus Hyperlipidemia 12/02/2022 RAY Pickett MD Active Last Documented On 12/02/2022 4:44PM ; [facility] Note: Unchanged Visit For: Contraceptive Surveillance 12/02/2022 RAY ROCK MD Active Last Documented On 12/02/2022 4:44PM ; [facility] Note: Unchanged Dysfunctional Uterine Bleeding 05/28/2018 BAN WILKES RN [facility] Active Last Documented On 05/28/2018 9:42AM ; [facility] Note: Unchanged Plan of Treatment - Clinical summary provided to patient - Last Documented On 08/15/2022 12:01PM ; [facility] PT TO CALL WITH ANY CHANGE IN STATUS ALL QUESTIONS ANSWERED WITH UNDERSTANDING VERBALIZED BY PT. - Last Documented On 08/15/2022 12:01PM ; [facility] Pending Tests Order Diagnosis Results Due Ordering Provider Radiology @ other - CT Scan Abd/Pelvis CT *w/ contrast Encounter for sterilization 08/29/22 BAN WILKES RN [facility] Last Documented On 4 10:01AM ; [facility] Lab LIPID PANEL, STANDARD 11/13/22 SHELLY WILKES RN [facility] Last Documented On 4 10:01AM ; [facility] Instructions to patient Instructed to call if excess shreyas bleeding or abdominal/pelvic pain Last Documented On 3 10:49AM ; [facility] Instructions For Patient: Mo nthly Self Breast Exam Last Documented On 3 10:49AM ; [facility] Recommend diet and exercise at least 30 min three times per week Last Documented On 3 10:49AM ; [facility] Education and Decision Aids were provided during visit for: Patient education RE: vanna chavez signals associated with hormonal contraceptive use including abdominal, chest, or leg pain, headaches or visual disturbances Last Documented On 3 10:49AM ; [facility] Patient Education: Daily jos cium and vitamin D Last Documented On 3 10:49AM ; [facility] Assessments Includes: Assessments from this encounter Findings - [Z01.419 - Encounter for gynecological examination (general) (routine) without abnormal findings] NORMAL FEMALE EXAM - Last Documented On 08/15/2022 12:01PM ; [facility] - [Z12.4 - Encounter for screening for malignant neoplasm of cervix] Screen malignant neoplasm cervix - Last Documented On 08/15/2022 12:01PM ; [facility] Instructions Includes: Instructions from this encounter Instructions to patient Instructed to call if excess shreyas bleeding or abdominal/pelvic pain Last Documented On 3 10:49AM ; [facility] Instructions For Patient: Mo nthly Self Breast Exam Last Documented On 3 10:49AM ; [facility] Recommend diet and exercise at least 30 min three times per week Last Documented On 3 10:49AM ; [facility] Education and Decision Aids were provided during visit for: Patient education RE: vanna chavez signals associated with hormonal contraceptive use including abdominal, chest, or leg pain, headaches or visual disturbances Last Documented On 3 10:49AM ; [facility] Patient Education: Daily jos cium and vitamin D Last Documented On 3 10:49AM ; [facility] Medical Equipment - Implanted Devices Includes: Current Devices No Medical Equipment Recorded Medications Includes: Medications discussed during this encounter and other current Medications New / Renewed during this visit BAN VELASQUEZ on 08/15/2022 Lo Loestrin Fe 1 MG-10 MCG / 10 MCG Oral Tablet Provider: BAN FLORES NP 28 day supply: 28 tablet, 2 refills Diagnosis: Other specified abnormal uterine and vaginal bleeding One tablet daily TAKE DIRECTED Last Documented On 3 2:34PM By BAN RICARDO ; [facility] Condoms Miscellaneous Provider: BAN VELASQUEZ 30 day supply: 10 each, 0 refills Diagnosis: Other specified abnormal uterine and vaginal bleeding as directed PLEASE DISPENSE MAGNUM CONDOMS Last Documented On 3 12:00PM By BAN RICARDO ; [facility] Current Medications (continue as prescribed) ZyrTEC Allergy 10 MG Oral Tablet 08/13/2021 Provider : Diagnosis: Last Documented On 08/13/2021 10:38AM By Annette Andres ; [facility] Womens Multivitamin Oral Tablet 06/22/2020 Provider: Diagnosis: Last Documented On 1 9:20AM By MOISÉS DONALDSON ; [facility] Past Medications on file Lo Loestrin Fe 1 MG-10 MCG / 10 MCG Oral Tablet 09/19/2022 - 12/12/2022 Provider: BAN VELASQUEZ Diagnosis: Encounter for surveillance of contraceptives, unspecified One tablet daily TAKE DIRECTED Last Documented On 3 2:34PM By BAN RICARDO ; [facility] Aviane 0.1-20MG-MCG Oral Tablet 05/27/2017 - 08/19/2017 Provider: BAN VELASQUEZ BC Diagnosis: Other specified abnormal uterine and vaginal bleeding TAKE 1 TAB DAILY START PACK Friday AFTER MENSES BEGINS Last Documented On 8 2:48PM By BAN VELASQUEZ-JENELLE ; [facility] Medications Administered Includes: Administered Medications from this encounter No Administered Medications Recorded Vital Signs Includes: Vital Signs from this encounter Vital Name 08/15/2022 10:23A Blood Pressure Sitting L 110/64 BP Cuff Size Regular Temp-Temporal 98.3 Height (in) 61.75 Weight (lb) 149 Body Mass Index 27.5 Body Surface Area 1.7 Last Documented: On 08/15/2022 10:27A M ; [facility] Results Includes: Results discussed during this encounter No Results Recorded For Specified Dates History of Present Illness Includes: History of Present Illness from this encounter HPI - Allergy list reviewed - Medication list reviewed Social History Description Last Updated Alcohol use: 2 drinks or less per day oc c 08/15/2022 Last Documented On 3 12:01PM ; [facility] control is being practiced BTL Last Documented On 3 12:01PM ; [facility] Current nonsmoker 08/15/2022 Last Documented On 3 12:01PM ; [facility] Educational level 08/15/2022 Last Documented On 3 12:01PM ; [facility] Exercising regularly Activities 08/16/19 23 Last Documented On 3 12:01PM ; [facility] Former smoker 08/15/2022 Last Documented On 3 12:01PM ; [facility] In monogamous relationship 08/15/2022 Last Documented On 3 12:01PM ; [facility] Marital history 08/15/2022 Last Documented On 3 12:01PM ; [facility] Non-smoker 08/15/2022 Last Documented On 3 12:01PM ; [facility] Not using alcohol 08/15/2022 Last Documented On 3 12:01PM ; [facility] Not using drugs 08/15/2022 Last Documented On 3 12:01PM ; [facility] Personal history [facility] [employer] [facility] 08/16/19 23 Last Documented On 3 12:01PM ; [facility] Sexually active 08/15/2022 Last Documented On 3 12:01PM ; [facility] Sexually active with 1 partners in the l ast year 08/15/2022 Last Documented On 3 12:01PM ; [facility] Tobacco non-user 08/15/2022 Last Documented On 3 12:01PM ; [facility] control is being practiced BTL and OCPs 08/15/2022 Last Documented On 3 12:01PM ; [facility] Smoking Status Unknown Procedures and Surgical History Includes: Procedures from this encounter Procedures Code Diagnosis Performing Provider Service L ocation Service Date education and instructions Last Documented On 3 10:49AM ; [facility] explanation of plan Last Documented On 3 10:49AM ; [facility] medical regimen review Last Documented On 3 10:49AM ; [facility] Discussed Contraception Pt i nformed d/t lipid serology, she is at risk for CV event and agrees to OCP change today for cycle control. Pt also informed she must consider missing Filshie clip as failed sterilization, and she must use BUM first OCP cycle to avoid conception. Pt instructed to repeat lipids in 3 months. Pt to be contacted with all results for plan of care. All questions answered Last Documented On 3 11:59AM ; [facility] Urged Exercise and Diet , exercise at le ast 30 min three times per week Last Documented On 3 10:49AM ; [facility] cervical Pap smear 44304 Last Documented On 3 10:49AM ; [facility] history of cervical Pap smear 07/2021 48068 Last Documented On 3 10:18AM ; [facility] Surgical History Last Updated History of tubal ligation 08/05/2005 10/0 10/2022 Last Documented On 3 10:15AM ; [facility] History of appendectomy 01/27/202108/13 Last Documented On 3 10:15AM ; [facility] Medical History Includes: Medical History addressed during this encounter Description Last Updated Contraception: tubal 12/02/2022 Last Documented On 3 10:15AM ; [facility] LMP: 08/15/2022 Just spotting every once and a while 08/15/2022 Last Documented On 3 12:01PM ; [facility] Last mammogram date: 08/202108/15/2022 Last Documented On 3 12:01PM ; [facility] Last pap smear date 07/202108/15/2022 Last Documented On 3 12:01PM ; [facility] History of screening mammogram was perfo rmed 08/202108/15/2022 Last Documented On 3 12:01PM ; [facility] A mammogram was performed 08/13/2021 Last Documented On 3 10:15AM ; [facility] History of cervical Pap smear 06/22/2020 WNL no ECC 08/09/2020 Last Documented On 3 10:15AM ; [facility] Vaginal delivery x 2 06/22/2020 Last Documented On 3 10:15AM ; [facility] Primary Care Provider: Kena Daniel- part of [place] system 06/22/2020 Last Documented On 3 10:15AM ; [facility] Sexually active 06/01/2019 Last Documented On 3 10:15AM ; [facility] History of dysfunctional uterine bleedin g 05/28/2018 Last Documented On 3 10:15AM ; [facility] Status post tubal ligation 200305/28/19 18 Last Documented On 3 10:15AM ; [facility] Heart Disease- paternal grandfather ~hyp ertension- both sides 05/27/2017 Last Documented On 3 10:15AM ; [facility] 2 05/27/2017 Last Documented On 3 10:15AM ; [facility] Para 2 05/27/2017 Last Documented On 3 10:15AM ; [facility] Family History Includes: Family History addressed during this encounter Description Last Updated Family history of malignant neoplasm of large intestine 2 different paternal uncles ~maternal uncle 06/22/2020 Last Documented On 3 10:15AM ; [facility] Heart Disease- paternal grandfather ~hyp ertension- both sides 05/28/2018 Last Documented On 3 10:15AM ; [facility] M uncle Prostate CA 05/28/2018 Last Documented On 3 10:15AM ; [facility] Family history of malignant female breast neoplasm mom in 50's dx. 2018 intraductal carcinoma, ER+ NC+ HER 2 - 05/28/2018 Last Documented On 3 10:15AM ; [facility] Family history of diabetes m ellitus paternal grandparents ~sister during 05/27/2017 Last Documented On 3 10:15AM ; [facility] Review of Systems Includes: Review of [...] WOMAN - ESTABLISHED PT BAN WILKES RN [facility] 08/16/19 23 10:17AM 11:19AM Normal Female Exam,Screen Malignant Neoplasm Cervix Insurance Includes: Active Insurance Policies Plan Name Member ID Group # Subscriber Relationship Effect shreyas Dates 1 - [facility] [id number] DAYA WHITE Self Clinical Notes Includes: Clinical Notes from this encounter * Progress note Date Encounter Last Documented by 08/15/2022 WELL WOMAN - ESTABLISHED PT Last documented on 08/15/2022; 12:01 PM, BAN WILKES RN [facility] ; [facility] Active Problems & Conditions - N93.8 - Dysfunctional Uterine Bleeding - Z80.3 - Family History of Breast Neoplasm Malignant Female - Mom - Z83.3 - Family History of Diabetes Mellitus - paternal grandparentssister during Chief Complaint The Chief Complaint is: WWE. Pt had X-RAY in Feb this year and was told that one of her clips are missing from BTL not sure of which side. Well Woman visit Reason For Visit Gynecologic annual exam and visit for: annual medical exam Pt presents for problem in addition to annual exam Pt reports she fell in 02/14 and radiology report of coccyx identified her L Filshie clip was missing. Pt. PCP instructed her to contact her SOLUTION STRATEGIST when she was in their office 05/16. Pt states she was informed her lipid panel was elevated. Pt cont. on combined OCP for cycle control and only has BTB at times due to continuous use. Pt denies any reportable CV warning sx with estrogen containing OCP. History of Present Illness - Allergy list reviewed - Medication list reviewed Current Medication - 03/15 1-20 MG-MCG Oral Tablet One tablet daily Dispense 3 packs and take active tablets only for menstrual suppression, 84 days, 0 refills - Womens Multivitamin Oral Tablet 0 days, 0 refills - ZyrTEC Allergy 10 MG Oral Tablet 0 days, 0 refills Past Medical/Surgical History Other: Primary Care Provider: Annette Daniel- part of [place] system Reported: LMP: 08/15/2022 Just spotting every once and a while, Last pap smear date 07/2021, Last mammogram date: 08/2021, Contraception: tubal, and status post tubal ligation 2003. Tests: A mammogram was performed. : 2, para 2, and history of the : vaginal delivery x 2. Sexual: Sexually active. Other: Screening mammogram was performed 08/2021. Cervical Pap smear 06/22/2020 WNL no ECC Diagnoses: Dysfunctional uterine bleeding Heart Disease- paternal grandfather hypertension- both sides. 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 Tobacco use: Former smoker, current nonsmoker, and non-smoker. Alcohol: Not using alcohol. Alcohol use: 2 drinks or less per day occ. Drug Use: Not using drugs. Habits: Exercising regularly Activities. Education: Educational level. Marital: Marital history . Sexual: Sexually active. In monogamous relationship. Sexually active with 1 partners in the last year, control is being practiced BTL and OCPs, and control is being practiced BTL. Allergies - No Known Allergies Family History Heart Disease- paternal grandfather hypertension- both sides M uncle Prostate CA Diabetes mellitus paternal grandparents sister during Malignant neoplasm of large intestine 2 different paternal uncles maternal uncle Malignant female breast neoplasm mom in 50's dx. 2018 intraductal carcinoma, ER+ NC+ HER 2 - Review Of Systems Systemic: Not tiring easily. No fever, no [...] pruritus. No skin lesions and no rash. Physical Findings - Vitals taken 08/15/2022 10:23 am BP-Sitting L 110/64 mmHg BP Cuff Size Regular Temp-Temporal 98.3 F Height 61.75 in Weight 149 lbs Body Mass Index 27.5 kg/m2 Body Surface Area 1.7 m2 Standard Measurements: - Weight. - Patient was not observed to be obese. General Appearance: - Normal. - Well developed. - Well nourished. - In no acute distress. Neck: - Normal. Appearance: - Neck was not swollen. - Neck was symmetrical. Palpation: - No tenderness of the neck. Thyroid: - Showed no abnormalities. - Did not have a nodule. - Not tender. Eyes: General/bilateral: Pupils: - PERRL. Nose: Right Side Of Nose: - Normal. Left Side Of Nose: - Normal. Oral Cavity: - General condition was good. Gums: - Examination showed no abnormalities. Teeth: - Dental no abnormalities. Lymph Nodes: - No adenopathy. - Cervical lymph nodes: normal. - Supraclavicular lymph Nodes: normal. Breasts: General/bilateral: - Palpation of the breast revealed dense, thickened tissue. - Nipples showed no abnormalities. - No abnormal breast secretion was observed. - No dimpling was seen in the breast. - No breast asymmetry was observed. - No breast mass was found. - No tenderness of the breast. Right Breast: - Normal. - Was normal to palpation. Left Breast: - Normal. - Was normal to palpation. Lungs: - Respiration rhythm and depth was normal. - Clear to auscultation. - No wheezing was heard. - No rhonchi were heard. Cardiovascular: - System: normal. Heart Rate And Rhythm: - Normal. - Heart rhythm regular. Heart Sounds: - Normal. - S1 normal. - S2 normal. - No gallop was heard. Murmurs: - No murmurs were heard. Edema: - Not present. Abdomen: - No organomegaly. Visual Inspection: - Abdomen was normal on visual inspection. Palpation: - Abdominal non-tender. Liver: - Not enlarged. Spleen: - Not enlarged. Urinary System: Bladder: - Normal. - Not tender. Urethra: - Normal. - Meatus showed no abnormalities. - No mass on the urethra. Genitalia: External: - Genitalia showed no abnormalities. Pelvic: - No ovarian mass. Vagina: - A vaginal discharge was observed menses in vault. - Mucosa was normal. - No cystocele was observed. - No rectocele was observed. Cervix: - Cervical discharge menses at os. - Normal. - Showed no lesion. - Did not demonstrate pain elicited by motion. - No inflammation. - No stenosis. Uterus: - Positioned midline. - Mobile. - Uterine size is normal. - Not tender. Uterine Adnexae: - Normal. - Uterine adnexa was not tender. - No tubal mass was noted. Rectovaginal: - Tissue was normal. Perineum: - No lesions. - No rashes. Rectal: Anus Examination: - External hemorrhoids were observed. Musculoskeletal System: Fingers: General/bilateral: - No cyanosis of the fingers. - No acropachy of the fingers was observed. Neurological: - Oriented to time, place, and person. Psychiatric: - Mood was not anxious. Appearance: - Grooming was normal. Affect: - Not agitated. Skin: - General appearance was normal. - Texture was normal. - Turgor was normal. - No cyanosis. - Moisture was normal. - No skin lesions. - No perineal lesions. - No rash. Tests Pathology: Cytology: Cervical Pap smear. Assessment - [Z01.419 - Encounter for gynecological examination (general) (routine) without abnormal findings] NORMAL FEMALE EXAM - [Z12.4 - Encounter for screening for malignant neoplasm of cervix] Screen malignant neoplasm cervix Previous Tests Pathology: Cytology: Cervical Pap smear 07/2021. 05/16 lipid panel total chol = 242 HDL = 64 triglycerides = 112 LDL = 155 Therapy - Urged Exercise and Diet, exercise at least 30 min three times per week. - Education and instructions. - Discussed Contraception Pt informed d/t lipid serology, she is at risk for CV event and agrees to OCP change today for cycle control. Pt also informed she must consider missing Filshie clip as failed sterilization, and she must use BUM first OCP cycle to avoid conception. Pt instructed to repeat lipids in 3 months. Pt to be contacted with all results for plan of care. All questions answered. - Medical regimen review. - Explanation of plan. Counseling/Education - Instructions For Patient: Monthly Self Breast Exam - Instructed to call if excessive bleeding or abdominal/pelvic pain - Recommend diet and exercise at least 30 min three times per week - Patient education RE: warning signals associated with hormonal contraceptive use including abdominal, chest, or leg pain, headaches or visual disturbances - Patient Education: Daily calcium and vitamin D Plan StartCited - Encntr for roll repairer exam (general) (routine) w/o abn findings Lab: PAP SMEAR & HPV ([facility] # [id number]) EndCited StartCited - Encntr screen mammogram for malignant neoplasm of breast Radiology @ other/*MAMMOGRAPHY: SCREENING MAMMOGRAM Instructions: Additional images/ultrasounds if indicated Please send to PCP EndCited StartCited - Encounter for screening for lipoid disorders Lab: LIPID PANEL, STANDARD EndCited StartCited - Encounter for sterilization Radiology @ other/CT Scan: Abd/Pelvis CT *w/ contrast Instructions: missing Filshie clip L adnexa per 02/21/[address] [facility] EndCited StartCited - Other PHY ORDER/COMMENT 1 yr and release for radiology records [facility] 03/18 thanks [facility] ORDER/COMMENT radiology [facility] 02/21/22 and release for [facility] lipid serology 05/16 thanks EndCited StartCited - Other specified abnormal uterine and vaginal bleeding Lo Loestrin Fe 1 MG-10 MCG / 10 MCG tablet One tablet daily TAKE DIRECTED, 28 days, 2 refills Condoms each as directed PLEASE DISPENSE MAGNUM CONDOMS, 30 days, 0 refills EndCited - Clinical summary provided to patient PT TO CALL WITH ANY CHANGE IN STATUS ALL QUESTIONS ANSWERED WITH UNDERSTANDING VERBALIZED BY PT. Health Reminders - Assess BMI satisfied 08/15/2022. - Assess Tobacco Use satisfied 08/15/2022. - Mammogram satisfied 08/24/2021.
== END 2024-02-17 08:13 | disposition home or self-care (01) ==
LOC: ANHGOSHLAB 08:14
PROVIDERS: PCP Family Medicine; Visit Provider Family Medicine
DX: R00.2 Palpitations (principal); R55 Syncope and collapse
CPT/HCPCS: 36415; 80053; 80061; 82607; 82728; 84443; 85025

== ENCOUNTER 2024-03-30 14:42 | Outpatient (CLI) | payer OTHER, SELFPAY ==
--- OUTSIDE RECORDS SUMMARY | 2024-03-30 14:47 | XMS_ITS | Clinical Summary ---
Author Organization [facility] Address [address] [place] [address] Phone Care Team Providers Care Set Up Technician Name Role Phone SHWETA SCOTT, RAY Alexander Unavailable [phone] SHY VELIZ MD Primary Care Provider [phone] Reason for Visit and Chief Complaint visit [...] Dysfunctional Uterine Bleeding 05/28/2018 BAN WILKES [address] [facility] Active Last Documented On 05/28/2018 9:42AM ; [facility] Note: Unchanged Plan of Treatment Education and [...] discussed Last Documented On 3 2:32PM ; [facility] Patient counseling : Use of contraceptives discussed in detail including rare occurrence of heart attack, stroke, and leg clots. Patient understands that smoking increases the risk of serious side effects with any steroid-based contraceptive method Last Documented On 3 2:38PM ; [facility] Assessments Includes: Assessments from this encounter Findings - [R87.615 - Unsatisfactory cytologic smear of cervix] Abnormal Pap smear of cervix - Last Documented On 09/19/2022 2:42PM ; [facility] - [Z30.40 - Encounter for surveillance of contraceptives, unspecified] Contraceptive surveillance - Last Documented On 09/19/2022 2:42PM ; [facility] - [Z30.2 - Encounter for sterilization] Encounter for contraceptive management, sterilization - Last Documented On 09/19/2022 2:42PM ; [facility] Instructions Includes: Instructions from this encounter Education [...] discussed Last Documented On 3 2:32PM ; [facility] Patient counseling : Use of contraceptives discussed in detail including rare occurrence of heart attack, stroke, and leg clots. Patient understands that smoking increases the risk of serious side effects with any steroid-based contraceptive method Last Documented On 3 2:38PM ; [facility] Medical Equipment - [...] By Annette Andres ; [facility] New / Renewed during this visit BAN VELASQUEZ on 09/19/2022 Lo Loestrin Fe 1 MG-10 MCG / 10 MCG Oral Tablet Provider: BAN Gupta LORENZO 28 day supply: 28 tablet, 2 refills Diagnosis: Encounter for surveillance of contraceptives, unspecified One tablet daily TAKE DIRECTED Last Documented On 3 2:34PM By BAN RICARDO ; [facility] Current Medications (continue as prescribed) ZyrTEC Allergy 10 MG Oral Tablet 08/13/2021 Provider : Diagnosis: Last Documented On 08/13/2021 10:38AM By Annette Andres ; [facility] Womens Multivitamin Oral Tablet 06/22/2020 Provider: Diagnosis: Last Documented On 1 9:20AM By MOISÉS DONALDSON ; [facility] Past Medications on file Condoms Miscellaneous 08/15/2022 - 09/14/2022 Provider: BAN WILKES RN LORENZO Diagnosis: Other specified abnormal uterine and vaginal bleeding as directed PLEASE DISPENSE MAGNUM CONDOMS Last Documented On 3 12:00PM By BAN RICARDO ; [facility] Aviane 0.1-20MG-MCG Oral Tablet 05/27/2017 - 08/19/2017 Provider: BAN WILKES RN LORENZO Diagnosis: Other specified abnormal uterine and vaginal bleeding TAKE 1 TAB DAILY START PACK Friday AFTER MENSES BEGINS Last Documented On 8 2:48PM By BAN RICARDO ; [facility] Medications Administered Includes: Administered Medications from this encounter No Administered Medications Recorded Vital Signs Includes: Vital Signs from this encounter Vital Name 09/19/2022 01:55P Blood Pressure Sitting L 98/60 BP Cuff Size Regular Temp-Temporal 98.3 Height (in) 61.75 Weight (lb) 148 Body Mass Index 27.3 Body Surface Area 1.7 Last Documented: On 09/19/2022 2:01PM ; [facility] Results Includes: Results discussed during this encounter [...] instructions Last Documented On 3 2:38PM ; [facility] [place] [address] Last Documented On 3 2:31PM ; [facility] Clinical summary provided to patient Last Documented On 3 2:38PM ; [facility] Surgical History Last Updated History of tubal ligation 08/05/20050 10/2022 Last Documented On 3 1:54PM ; [facility] History of appendectomy 01/27/202108/13 Last Documented On 3 1:54PM ; [facility] Medical History Includes: Medical History addressed during this encounter Description Last Updated Contraception: tubal 12/02/2022 Last Documented On 3 1:54PM ; [facility] Last mammogram date: 08/202112/02/2022 Last Documented On 3 1:54PM ; [facility] Result: normal 12/02/2022 Last Documented On 3 1:54PM ; [facility] Result: normal no ECC 09/19/2022 Last Documented On 3 2:42PM ; [facility] Last pap smear date 08/15/2022 NO ECC Last Documented On 3 2:42PM ; [facility] LMP: 08/15/2022 Just spotting every once and a while 08/15/2022 Last Documented On 3 1:54PM ; [facility] History of screening mammogram was perfo rmed 08/202108/15/2022 Last Documented On 3 1:54PM ; [facility] A mammogram was performed 08/13/2021 Last Documented On 3 1:54PM ; [facility] History of cervical Pap smear 06/22/2020 WNL no ECC 08/09/2020 Last Documented On 3 1:54PM ; [facility] Vaginal delivery x 2 06/22/2020 Last Documented On 3 1:54PM ; [facility] Primary Care Provider: Kena Daniel- part of [place] system 06/22/2020 Last Documented On 3 1:54PM ; [facility] Sexually active 06/01/2019 Last Documented On 3 1:54PM ; [facility] History of dysfunctional uterine bleedin g 05/28/2018 Last Documented On 3 1:54PM ; [facility] Status post tubal ligation 200305/28/19 Last Documented On 3 1:54PM ; [facility] Heart Disease- paternal grandfather ~hyp ertension- both sides 05/27/2017 Last Documented On 3 1:54PM ; [facility] 2 05/27/2017 Last Documented On 3 1:54PM ; [facility] Para 2 05/27/2017 Last Documented On 3 1:54PM ; [facility] Family History Includes: Family History addressed during this encounter Description Last Updated Family history of malignant neoplasm of large intestine 2 different paternal uncles ~maternal uncle 06/22/2020 Last Documented On 3 1:54PM ; [facility] Heart Disease- paternal grandfather ~hyp ertension- both sides 05/28/2018 Last Documented On 3 1:54PM ; [facility] M uncle Prostate CA 05/28/2018 Last Documented On 3 1:54PM ; [facility] Family history of malignant female breast neoplasm mom in 50's dx. 2018 intraductal carcinoma, ER+ [place]+ HER 2 - 05/28/2018 Last Documented On 3 1:54PM ; [facility] Family history of diabetes m ellitus paternal grandparents ~sister during 05/27/2017 Last Documented On 3 1:54PM ; [facility] Review of Systems Includes: Review of [...] Check-Out Time Diagnosis FOLLOW UP BAN VELASQUEZ [facility] 09/20/19 23 1:28PM 2:26PM Assessment of Abnormal Pap Smear of Cervix,Encounter For Contraceptive Management, Sterilization,Con traceptive Surveillance Insurance Includes: Active Insurance Policies Plan Name Member ID Group # Subscriber Relationship Effect shreyas Dates 1 - [facility] [id number] DAYA WHITE Self Clinical Notes Includes: Clinical Notes from this encounter * Progress note Date Encounter Last Documented by 09/19/2022 FOLLOW UP Last documented on 09/19/2022; 2:42 PM, BAN WILKES RN LORENZO ; [facility] Active Problems & Conditions - [...] Primary Care Provider: Annette Daniel- part of [place] system Reported: LMP: 08/15/2022 Just spotting every [...] in 50's dx. 2018 intraductal carcinoma, ER+ MI+ HER 2 - Review Of Systems Systemic: [...] StartCited - Encounter for sterilization Radiology @ [facility]: HSG (Hystrosalpingogram) Instructions: tubal patency s/p Filshie [...] cervix Lab: PAP SMEAR W/IMAGING ([facility] # [id number]) EndCited Health Reminders - Assess BMI satisfied 09/19/2022. - Mammogram satisfied 08/24/2021.
--- OUTSIDE RECORDS SUMMARY | 2024-03-30 14:47 | XMS_ITS | Clinical Summary ---
Author Organization [facility] Address [address] [place] [address] Phone Care Team Providers Care Meter Calibrator Name Role Phone SHWETA SCOTT, RAY Alexander Unavailable [phone] SHY VELIZ MD Primary Care Provider [phone] Reason for Visit and Chief Complaint gynecologic annual exam - The Chief Complaint is: WWE Problems Includes: Problems addressed during this encounter and other active Problems All Visits Onset Date Resolved Date Provider Condition S tatus Hyperlipidemia 12/02/2022 RAY Pickett MD Active Last Documented On 12/02/2022 4:44PM ; [facility] Note: Unchanged Visit For: Contraceptive Surveillance 12/02/2022 RAY ROCK MD Active Last Documented On 12/02/2022 4:44PM ; [facility] Note: Unchanged Dysfunctional Uterine Bleeding 05/28/2018 BAN WILKES RN [facility] Active Last Documented On 05/28/2018 9:42AM ; [facility] Note: Unchanged Plan of Treatment - Weight loss diet - Last Documented On 08/13/2021 11:01AM ; [facility] - Clinical summary provided to patient - Last Documented On 08/13/2021 11:01AM ; [facility] PT TO CALL WITH ANY CHANGE IN STATUS ALL QUESTIONS ANSWERED WITH UNDERSTANDING VERBALIZED BY PT. - Last Documented On 08/13/2021 11:01AM ; [facility] Instructions to patient Instructed to call if excess shreyas bleeding or abdominal/pelvic pain Last Documented On 10:45AM ; [facility] Instructions For Patient: Mo nthly Self Breast Exam Last Documented On 2 10:45AM ; [facility] Recommend diet and exercise at least 30 min three times per week Last Documented On 2 10:45AM ; [facility] Education and Decision Aids were provided during visit for: Patient education RE: juan josen g signals associated with hormonal contraceptive use including abdominal, chest, or leg pain, headaches or visual disturbances Last Documented On 2 10:45AM ; [facility] Patient Education: Daily jos cium and vitamin D Last Documented On 2 10:45AM ; [facility] Assessments Includes: Assessments from this encounter Findings - NORMAL FEMALE EXAM - Last Documented On 08/13/2021 11:01AM ; [facility] - Screen malignant neoplasm cervix - Last Documented On 08/13/2021 11:01AM ; [facility] Instructions Includes: Instructions from this encounter Instructions to patient Instructed to call if excess shreyas bleeding or abdominal/pelvic pain Last Documented On 2 10:45AM ; [facility] Instructions For Patient: Mo nthly Self Breast Exam Last Documented On 2 10:45AM ; [facility] Recommend diet and exercise at least 30 min three times per week Last Documented On 2 10:45AM ; [facility] Education and Decision Aids were provided during visit for: Patient education RE: juan josen g signals associated with hormonal contraceptive use including abdominal, chest, or leg pain, headaches or visual disturbances Last Documented On 2 10:45AM ; [facility] Patient Education: Daily jos cium and vitamin D Last Documented On 2 10:45AM ; [facility] Medical Equipment - Implanted Devices Includes: Current Devices No Medical Equipment Recorded Medications Includes: Medications discussed during this encounter and other current Medications Discontinued / Stopped on this date on 06/22/2020 Biotin Plus Keratin 94014-417 MCG-MG Oral Tablet Provider: Diagnosis: Last Documented On 08/13/2021 10:38AM By Annette Andres ; [facility] B-12 5000 MCG Oral Capsule Provider: Diagnosis: Last Documented On 08/13/2021 10:37AM By Annette Andres ; [facility] Glucosamine-Chondroitin 3939-0633 MG/30ML Oral Liquid Provider: Diagnosis: Last Documented On 08/13/2021 10:38AM By Annette Andres ; [facility] Sudafed 30MG Oral Tablet Provider: Diagnosis: Last Documented On 08/13/2021 10:38AM By Annette Andres ; [facility] New / Renewed during this visit BAN WILKES RN LORENZO on 08/13/2021 Lo Loestrin Fe 1 MG-10 MCG / 10 MCG Oral Tablet Provider: BAN WILKES RN LORENZO 84 day supply: 84 tablet, 3 refills Diagnosis: One tablet daily Pharmacy: [facility] [address], [address] - Last Documented On 2 2:46PM By BAN PRESLEY ; [facility] Current Medications (continue as prescribed) ZyrTEC Allergy 10 MG Oral Tablet 08/13/2021 Provider : Diagnosis: Last Documented On 08/13/2021 10:38AM By Annette Andres ; [facility] Womens Multivitamin Oral Tablet 06/22/2020 Provider: Diagnosis: Last Documented On 1 9:20AM By MOISÉS DONALDSON ; [facility] Past Medications on file Lo Loestrin Fe 1 MG-10 MCG / 10 MCG Oral Tablet 09/19/2022 - 12/12/2022 Provider: BAN VELASQUEZ Diagnosis: Encounter for surveillance of contraceptives, unspecified One tablet daily TAKE DIRECTED Last Documented On 3 2:34PM By BAN RICARDO ; [facility] Condoms Miscellaneous 08/15/2022 - 09/14/2022 Provider: BAN VELASQUEZ Diagnosis: Other specified abnormal uterine and vaginal bleeding as directed PLEASE DISPENSE MAGNUM CONDOMS Last Documented On 3 12:00PM By BAN RICARDO ; [facility] Aviane 0.1-20MG-MCG Oral Tablet 05/27/2017 - 08/19/2017 Provider: BAN VELASQUEZ Diagnosis: Other specified abnormal uterine and vaginal bleeding TAKE 1 TAB DAILY START PACK Friday AFTER MENSES BEGINS Last Documented On 8 2:48PM By BAN RICARDO ; [facility] Medications Administered Includes: Administered Medications from this encounter No Administered Medications Recorded Vital Signs Includes: Vital Signs from this encounter Vital Name 08/13/2021 10:36A Blood Pressure Sitting L 102/76 BP Cuff Size Regular Temp-Oral (F) 98 Height (in) 61.75 Weight (lb) 152 Body Mass Index (kg/m2) 28.0 Body Surface Area (m2) 1.7 Last Documented: On 08/13/2021 10:39A M ; [facility] Results Includes: Results discussed during [...] 08/13/2021 Last Documented On 2 11:01AM ; [facility] Current nonsmoker 08/13/2021 Last Documented On 2 11:01AM ; [facility] Currently 08/13/2021 Last Documented On 2 11:01AM ; [facility] Educational level 08/13/2021 Last Documented On 2 11:01AM ; [facility] Exercising regularly Activities 08/14/19 Last Documented On 2 11:01AM ; [facility] Former smoker 08/13/2021 Last Documented On 2 11:01AM ; [facility] In monogamous relationship 08/13/2021 Last Documented On 2 11:01AM ; [facility] Marital history 08/13/2021 Last Documented On 2 11:01AM ; [facility] Non-smoker 08/13/2021 Last Documented On 2 11:01AM ; [facility] Not using alcohol 08/13/2021 Last Documented On 2 11:01AM ; [facility] Not using drugs 08/13/2021 Last Documented On 2 11:01AM ; [facility] 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 Last Documented On 2 11:01AM ; [facility] Sexually active 08/13/2021 Last Documented On 2 11:01AM ; [facility] Sexually active with 1 partners in the l ast year 08/13/2021 Last Documented On 2 11:01AM ; [facility] Alcohol use 08/13/2021 Last Documented On 2 11:01AM ; [facility] control is being practiced BTL Last Documented On 2 11:01AM ; [facility] Tobacco non-user 08/13/2021 Last Documented On 2 11:01AM ; [facility] Smoking Status Unknown Procedures and Surgical History Includes: Procedures from this encounter Procedures Code Diagnosis Performing Provider Service L ocation Service Date education and instructions Last Documented On 2 10:45AM ; [facility] explanation of plan Last Documented On 2 10:45AM ; [facility] medical regimen review Last Documented On 2 10:45AM ; [facility] Discussed Contraception Last Documented On 2 10:45AM ; [facility] Urged Exercise and Diet , exercise at le ast 30 min three times per week Last Documented On 2 10:45AM ; [facility] a mammogram was performed 08/17/2020 Last Documented On 2 10:41AM ; [facility] cervical Pap smear 48241 Last Documented On 2 10:45AM ; [facility] history of cervical Pap smear 08/09/2020 62975 Last Documented On 2 10:41AM ; [facility] Surgical History Last Updated History of tubal ligation 08/05/2005 10/0 10/2022 Last Documented On 2 10:34AM ; [facility] History of appendectomy 01/27/202108/13 Last Documented On 2 11:01AM ; [facility] Medical History Includes: Medical History addressed during this encounter Description Last Updated Contraception: tubal 12/02/2022 Last Documented On 2 10:34AM ; [facility] Result: normal 12/02/2022 Last Documented On 2 10:34AM ; [facility] A mammogram was performed 08/13/2021 Last Documented On 2 11:01AM ; [facility] History of screening mammogram was perfo rmed 08/17/2020 08/13/2021 Last Documented On 2 11:01AM ; [facility] LMP: 07/05/2021 usually does not have cyc le but missed pills and had one 08/13/2021 Last Documented On 2 11:01AM ; [facility] Last mammogram date: 08/17/2020 2 Last Documented On 2 11:01AM ; [facility] Last pap smear date 08/09/2020 no ECC Last Documented On 2 11:01AM ; [facility] History of cervical Pap smear 06/22/2020 WNL no ECC 08/09/2020 Last Documented On 2 10:34AM ; [facility] Vaginal delivery x 2 06/22/2020 Last Documented On 2 10:34AM ; [facility] Primary Care Provider: Kena Daniel- part of [place] system 06/22/2020 Last Documented On 2 10:34AM ; [facility] Sexually active 06/01/2019 Last Documented On 2 10:34AM ; [facility] History of dysfunctional uterine bleedin g 05/28/2018 Last Documented On 2 10:34AM ; [facility] Status post tubal ligation 2004 05/28/19 18 Last Documented On 2 10:34AM ; [facility] Heart Disease- paternal grandfather ~hyp ertension- both sides 05/27/2017 Last Documented On 2 10:34AM ; [facility] 2 05/27/2017 Last Documented On 2 10:34AM ; [facility] Para 2 05/27/2017 Last Documented On 2 10:34AM ; [facility] Family History Includes: Family History addressed during this encounter Description Last Updated Family history of malignant neoplasm of large intestine 2 different paternal uncles ~maternal uncle 06/22/2020 Last Documented On 2 10:34AM ; [facility] Heart Disease- paternal grandfather ~hyp ertension- both sides 05/28/2018 Last Documented On 2 10:34AM ; [facility] M uncle Prostate CA 05/28/2018 Last Documented On 2 10:34AM ; [facility] Family history of malignant female breast neoplasm mom in 50's dx. 2018 intraductal carcinoma, ER+ [place]+ HER 2 - 05/28/2018 Last Documented On 2 10:34AM ; [facility] Family history of diabetes m ellitus paternal grandparents ~sister during 05/27/2017 Last Documented On 2 10:34AM ; [facility] Review of Systems Includes: Review [...] - ESTABLISHED PT BAN WILKES RN NP [facility] 08/14/19 22 10:33AM 10:59AM Normal Female Exam,Screen Malignant Neoplasm Cervix Insurance Includes: Active Insurance Policies Plan Name Member ID Group # Subscriber Relationship Effect shreyas Dates 1 - [facility] [id number] DAYA WHITE Self Clinical Notes Includes: Clinical Notes from this encounter No Clinical Notes Recorded
--- OUTSIDE RECORDS SUMMARY | 2024-03-30 14:47 | XMS_ITS | Clinical Summary ---
Author Organization [facility] Address [address] [place] [address] Phone Care Team Providers Care Medical Record Technician Name Role Phone SHWETA SCOTT, RAY Alexander Unavailable [phone] SHY VELIZ MD Primary Care Provider [phone] Reason for Visit and Chief Complaint The Chief Complaint is: Consult to discuss clip placement Problems Includes: Problems addressed during this encounter and other active Problems Current Visit Onset Date Resolved Date Provider Conditio n Status Hyperlipidemia 12/02/2022 RAY Pickett MD Active Last Documented On 12/02/2022 4:44PM ; [facility] Note: Unchanged Visit For: Contraceptive Surveillance 12/02/2022 RAY ROCK MD Active Last Documented On 12/02/2022 4:44PM ; [facility] Note: Unchanged Past Visits Onset Date Resolved Date Provider Condition Status Dysfunctional Uterine Bleeding 05/28/2018 EBONIE WILKES RN [facility] Active Last Documented On 05/28/2018 9:42AM ; [facility] Note: Unchanged Plan of Treatment Pending Tests Order Diagnosis Results Due Ordering P rovider Lab LIPID PANEL WITH REF LEYDA TO DIRECT LDL 12/02/22 RAY ROCK MD Last Documented On 4:54PM ; [facility] Assessments Includes: Assessments from this encounter Findings - Visit for: surveillance of contraceptive - Last Documented On 12/02/2022 4:54PM ; [facility] - Hyperlipidemia - Last Documented On 12/02/2022 4:54PM ; [facility] Medical Equipment - Implanted Devices Includes: Current Devices No Medical Equipment Recorded Medications Includes: Medications discussed during this encounter and other current Medications Current Medications (continue as prescribed) ZyrTEC Allergy 10 MG Oral Tablet 08/13/2021 Provider : Diagnosis: Last Documented On 08/13/2021 10:38AM By Annette Andres ; [facility] Womens Multivitamin Oral Tablet 06/22/2020 Provider: Diagnosis: Last Documented On 1 9:20AM By MOISÉS DONALDSON ; [facility] Past Medications on file Lo Loestrin Fe 1 MG-10 MCG / 10 MCG Oral Tablet 09/19/2022 - 12/12/2022 Provider: EBONIE VELASQUEZ Diagnosis: Encounter for surveillance of contraceptives, unspecified One tablet daily TAKE DIRECTED Last Documented On 3 2:34PM By EBONIE RICARDO ; [facility] Condoms Miscellaneous 08/15/2022 - 09/14/2022 Provider: EBONIE ALMANZAR Diagnosis: Other specified abnormal uterine and vaginal bleeding as directed PLEASE DISPENSE MAGNUM CONDOMS Last Documented On 3 12:00PM By EBONIE RICARDO ; [facility] Aviane 0.1-20MG-MCG Oral Tablet 05/27/2017 - 08/19/2017 Provider: EBONIE ALMANZAR Diagnosis: Other specified abnormal uterine and vaginal bleeding TAKE 1 TAB DAILY START PACK Friday AFTER MENSES BEGINS Last Documented On 8 2:48PM By EBONIE RICARDO ; [facility] Medications Administered Includes: Administered Medications from this encounter No Administered Medications Recorded Vital Signs Includes: Vital Signs from this encounter Vital Name 12/02/2022 02:57P Blood Pressure Sitting (mmHg) 100/60 Temp-Oral (F) 98.4 Height (in) 61.75 Weight (lb) 150.6 Body Mass Index 27.8 Body Surface Area 1.7 Last Documented: On 12/02/2022 3:16PM ; [facility] Results Includes: Results discussed during [...] after a fall and had X-rays at [place] where they noted clips (plural) in the right adnexae. Pt thought that with both clips to the right of the midline that one wasn't attached. she denies pain , bleeding, or abdominal problems. For f/u that she didn't do till 09/19/22 at [facility] CT showed the right clip adjacent to the right anterior uterus. The second clip was midline between the bladder and the uterus. Both clips in the pelvis in reasonable positions. For further f/u to see if they are working she had HSG done on 10/01/22 at [facility] that showed the tubes sealed bilaterally. Reports are reviewed directly with the patient. She expresses understanding. 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 Last Documented On 3 2:43PM ; [facility] Educational level 08/15/2022 Last Documented On 3 2:43PM ; [facility] Exercising regularly Activities 08/16/19 Last Documented On 3 2:43PM ; [facility] Former smoker 08/15/2022 Last Documented On 3 2:43PM ; [facility] In monogamous relationship 08/15/2022 Last Documented On 3 2:43PM ; [facility] Marital history 08/15/2022 Last Documented On 3 2:43PM ; [facility] Not using alcohol 08/15/2022 Last Documented On 3 2:43PM ; [facility] Not using drugs 08/15/2022 Last Documented On 3 2:43PM ; [facility] 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 Last Documented On 3 2:43PM ; [facility] Sexually active 08/15/2022 Last Documented On 3 2:43PM ; [facility] Sexually active with 1 partners in the l ast year 08/15/2022 Last Documented On 3 2:43PM ; [facility] Tobacco non-user 08/15/2022 Last Documented On 3 2:43PM ; [facility] Smoking Status Unknown Procedures and Surgical History Includes: Procedures from this encounter Procedures Code Diagnosis Performing Provider Service L ocation Service Date history of cervical Pap smear 08/15/2022 Normal No ECC; Rpt pap 09/19/22 WNL 21008 Last Documented On 3 2:51PM ; [facility] Surgical History Last Updated History of tubal ligation 2003 Dr Zurita in [place] 12/02/2022 Last Documented On 3 4:54PM ; [facility] History of appendectomy 01/27/202108/13 Last Documented On 3 2:43PM ; [facility] Medical History Includes: Medical History addressed during this encounter Description Last Updated Contraception: tubal 2003 [place]- Dr Zurita 12/02/2022 Last Documented On 3 4:54PM ; [facility] Last pap smear date 08/15/2022 08/15/22 Last Documented On 3 4:54PM ; [facility] Result: normal no ECC; repeat pap 3 WNL 12/02/2022 Last Documented On 3 4:54PM ; [facility] Last mammogram date: 09/19/2022 3 Last Documented On 3 4:54PM ; [facility] Result: normal [facility] 12/02/2022 Last Documented On 3 4:54PM ; [facility] LMP: 08/15/2022 Just spotting every once and a while 08/15/2022 Last Documented On 3 2:43PM ; [facility] Vaginal delivery x 2 06/22/2020 Last Documented On 3 2:43PM ; [facility] Primary Care Provider: Kena Rivera part of [place] system 06/22/2020 Last Documented On 3 2:43PM ; [facility] Sexually active 06/01/2019 Last Documented On 3 2:43PM ; [facility] History of dysfunctional uterine bleedin g 05/28/2018 Last Documented On 3 2:43PM ; [facility] Heart Disease- paternal grandfather ~hyp ertension- both sides 05/27/2017 Last Documented On 3 2:43PM ; [facility] 2 05/27/2017 Last Documented On 3 2:43PM ; [facility] Para 2 05/27/2017 Last Documented On 3 2:43PM ; [facility] Family History Includes: Family History addressed during this encounter Description Last Updated Maternal history of malignan t female breast neoplasm mom in 50's dx. 2018 intraductal carcinoma, ER+ IA+ HER 2 - 12/02/2022 Last Documented On 3 4:54PM ; [facility] Paternal uncle's history of malignant neoplasm of large intestine 2 different paternal uncles ~maternal uncle 12/02/2022 Last Documented On 3 4:54PM ; [facility] Heart Disease- paternal grandfather ~hyp ertension- both sides 05/28/2018 Last Documented On 3 2:43PM ; [facility] M uncle Prostate CA 05/28/2018 Last Documented On 3 2:43PM ; [facility] Family history of diabetes m ellitus paternal grandparents ~sister during 05/27/2017 Last Documented On 3 2:43PM ; [facility] Review of Systems Includes: Review [...] [facility] CONSULTATION- ESTABLISHED PATIENT RAY ROCK MD [facility] 023 2:42PM 3:49PM Hyperlipidemia,A ssessment of Visit For: Contraceptive Surveillance Insurance Includes: Active Insurance Policies Plan Name Member ID Group # Subscriber Relationship Effect shreyas Dates 1 - [facility] [id number] DAYA WHITE Self Clinical Notes Includes: Clinical Notes from this encounter * Progress note Date Encounter Last Documented by 12/02/2022 [facility] CONSULTATION- ESTABLISHED JASON RAY Last documented on 12/02/2022; 4:54 PM, RAY ROCK MD; [facility] Active Problems & Conditions [...] after a fall and had X-rays at [place] where they noted clips (plural) in the right adnexae. Pt thought that with both clips to the right of the midline that one wasn't attached. she denies pain , bleeding, or abdominal problems. For f/u that she didn't do till 09/19/22 at [facility] CT showed the right clip adjacent to the right anterior uterus. The second clip was midline between the bladder and the uterus. Both clips in the pelvis in reasonable positions. For further f/u to see if they are working she had HSG done on 10/01/22 at [facility] that showed the tubes sealed bilaterally. Reports [...] Primary Care Provider: Annette Daniel- part of [facility] system Reported: LMP: 08/15/2022 Just spotting every once and a while, Last pap smear date 08/15/22, result: normal no ECC; repeat pap 09/19/22 WNL, Last mammogram date: 09/19/2022 result: normal [facility], and Contraception: tubal 2003 [place]- Dr Zurita. : 2, para 2, and history of the : vaginal delivery x 2. Sexual: Sexually active. Diagnoses: Dysfunctional uterine bleeding Heart Disease- paternal grandfather hypertension- both sides. 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 Tobacco use: Former smoker. Alcohol: Not using [...] in 50's dx. 2018 intraductal carcinoma, ER+ IA+ HER 2 - Paternal uncle's: Malignant neoplasm [...] read of studies at one of the [facility]. Pt also wants to have her lipid [...] copy of her former levels from her [facility] file as the were never sent to this office) Lipid level is ordered with a copy to her PCP as well. Plan StartCited - Hyperlipidemia, unspecified Lab: LIPID PANEL WITH REFLEX TO DIRECT LDL EndCited StartCited - Other PHY ORDER/COMMENT pt needs fasting lipid profile E78.5 [facility] ([place]) with results to [facility]. also to Annette Justice, too. [facility] for fasting lipid draw; return for BP check and review of lipid profile with [facility] in one month EndCited Practice Management [[id number]] Established outpatient, medically appropriate H&P, low level decision making, 20-29 minutes.
--- OUTSIDE RECORDS SUMMARY | 2024-03-30 14:47 | XMS_ITS | Clinical Summary ---
Author Organization [facility] Address [address] [place] [address] Phone Care Team Providers Care Protective Officer Name Role Phone SHWETA SCOTT, RAY Alexander Unavailable [phone] SHY VELIZ MD Primary Care Provider [phone] Reason for Visit and Chief Complaint CHART UPDATE Problems Includes: Problems addressed during this encounter and other active Problems All Visits Onset Date Resolved Date Provider Condition S tatus Hyperlipidemia 12/02/2022 RAY Pickett MD Active Last Documented On 12/02/2022 4:44PM ; [facility] Note: Unchanged Visit For: Contraceptive Surveillance 12/02/2022 RAY ROCK MD Active Last Documented On 12/02/2022 4:44PM ; [facility] Note: Unchanged Dysfunctional Uterine Bleeding 05/28/2018 BAN WILKES RN LORENZO ALMANZAR Active Last Documented On 05/28/2018 9:42AM ; [facility] Note: Unchanged Plan of Treatment No Plan [...] Documented On 2:46PM By BAN RICARDO ; [facility] New / Renewed during this visit BAN ALMANZAR on 08/15/2021 Junel 03/15 1-20 MG-MCG Oral Tablet Provider: BAN LINK P 84 day supply: 84 tablet, 3 refills Diagnosis: Other specified abnormal uterine and vaginal bleeding One tablet daily Dispense 3 packs and take active tablets only for menstrual suppression Pharmacy: [address], [address] - Last Documented On 3 10:08AM By BAN RICARDO ; [facility] Current Medications (continue as prescribed) ZyrTEC Allergy 10 MG Oral Tablet 08/13/2021 Provider : Diagnosis: Last Documented On 08/13/2021 10:38AM By Annette Andres ; [facility] Womens Multivitamin Oral Tablet 06/22/2020 Provider: Diagnosis: Last Documented On 1 9:20AM By MOISÉS DONALDSON ; [facility] Past Medications on file Lo Loestrin Fe 1 MG-10 MCG / 10 MCG Oral Tablet 09/19/2022 - 12/12/2022 Provider: BAN VELASQUEZ Diagnosis: Encounter for surveillance of contraceptives, unspecified One tablet daily TAKE DIRECTED Last Documented On 3 2:34PM By BAN RICARDO ; [facility] Condoms Miscellaneous 08/15/2022 - 09/14/2022 Provider: BAN ALMANZAR Diagnosis: Other specified abnormal uterine and vaginal bleeding as directed PLEASE DISPENSE MAGNUM CONDOMS Last Documented On 3 12:00PM By BAN RICARDO ; [facility] Aviane 0.1-20MG-MCG Oral Tablet 05/27/2017 - 08/19/2017 Provider: BAN ALMANZAR Diagnosis: Other specified abnormal uterine and vaginal bleeding TAKE 1 TAB DAILY START PACK Friday AFTER MENSES BEGINS Last Documented On 8 2:48PM By BAN RICARDO ; [facility] Medications Administered Includes: Administered [...] 10/2022 Last Documented On 2 2:43PM ; [facility] History of appendectomy 01/27/202108/13 Last Documented On 2 2:43PM ; [facility] Medical History Includes: Medical History addressed during this encounter Description Last Updated Contraception: tubal 12/02/2022 Last Documented On 2 2:43PM ; [facility] Last pap smear date 08/09/2020 no ECC 10/2022 Last Documented On 2 2:43PM ; [facility] Last mammogram date: 08/17/2020 3 Last Documented On 2 2:43PM ; [facility] Result: normal 12/02/2022 Last Documented On 2 2:43PM ; [facility] LMP: 07/05/2021 usually does not have cyc le but missed pills and had one 08/15/2022 Last Documented On 2 2:43PM ; [facility] History of screening mammogram was perfo rmed 08/17/2020 08/15/2022 Last Documented On 2 2:43PM ; [facility] A mammogram was performed 08/13/2021 Last Documented On 2 2:43PM ; [facility] History of cervical Pap smear 06/22/2020 WNL no ECC 08/09/2020 Last Documented On 2 2:43PM ; [facility] Vaginal delivery x 2 06/22/2020 Last Documented On 2 2:43PM ; [facility] Last Documented On 2 2:43PM ; [facility] Sexually active 06/01/2019 Last Documented On 2 2:43PM ; [facility] History of dysfunctional uterine bleedin g 05/28/2018 Last Documented On 2 2:43PM ; [facility] Status post tubal ligation 2004 05/28/19 18 Last Documented On 2 2:43PM ; [facility] Heart Disease- paternal grandfather ~hyp ertension- both sides 05/27/2017 Last Documented On 2 2:43PM ; [facility] 2 05/27/2017 Last Documented On 2 2:43PM ; [facility] Para 2 05/27/2017 Last Documented On 2 2:43PM ; [facility] Family History Includes: Family History addressed during this encounter Description Last Updated Family history of malignant neoplasm of large intestine 2 different paternal uncles ~maternal uncle 06/22/2020 Last Documented On 2 2:43PM ; [facility] Heart Disease- paternal grandfather ~hyp ertension- both sides 05/28/2018 Last Documented On 2 2:43PM ; [facility] M uncle Prostate CA 05/28/2018 Last Documented On 2 2:43PM ; [facility] Family history of malignant female breast neoplasm mom in 50's dx. 2018 intraductal carcinoma, ER+ [place]+ HER 2 - 05/28/2018 Last Documented On 2 2:43PM ; [facility] Family history of diabetes m ellitus paternal grandparents ~sister during 05/27/2017 Last Documented On 2 2:43PM ; [facility] Review of Systems Includes: [...] Subscriber Relationship Effect shreyas Dates 1 - [facility] [id number] DAYA WHITE Self Clinical Notes Includes: Clinical Notes from this encounter No Clinical Notes Recorded
--- OUTSIDE RECORDS SUMMARY | 2024-03-30 14:47 | XMS_ITS ---
Author Organization [facility] Address [address] [place] [address] Phone Care Team Providers Care Hop Trainer Name Role Phone SHWETA SCOTT, RAY Alexander Unavailable [phone] SHY VELIZ MD Primary Care Provider [phone] Problems Includes: Active, inactive, and resolved Problems All Visits Onset Date Resolved Date Provider Condition S tatus Hyperlipidemia 12/02/2022 RAY Pickett MD Active Last Documented On 12/02/2022 4:44PM ; [facility] Note: Unchanged Visit For: Contraceptive Surveillance 12/02/2022 RAY ROCK MD Active Last Documented On 12/02/2022 4:44PM ; [facility] Note: Unchanged Dysfunctional Uterine Bleeding 05/28/2018 BAN WILKES RN [facility] Active Last Documented On 05/28/2018 9:42AM ; [facility] Note: Unchanged Plan of Treatment Findings Encounter Date Ordered Clinical summary pro vided to patient WELL WOMAN - ESTABLISHED PT with BAN WILKES RN LORENZO 08/15/2022 Last Documented On 3 12:01PM ; [facility] Ordered Clinical summary pro vided to patient WELL WOMAN - ESTABLISHED PT with BAN WILKES RN LORENZO 08/13/2021 Last Documented On 2 11:01AM ; [facility] Ordered weight loss diet WELL WOMAN - ES TABLISHED PT with BAN WILKES RN LORENZO 08/13/2021 Last Documented On 2 11:01AM ; [facility] Ordered Clinical summary pro vided to patient WELL WOMAN - ESTABLISHED PT with BAN WILKES RN L[facility]ENZO 06/22/2020 Last Documented On 1 10:00AM ; [facility] Ordered Clinical summary pro vided to patient SCREW DOWN EXAM with BAN WILKES RN LORENZO 06/01/2019 Last Documented On 0 9:14AM ; [facility] Ordered Clinical summary pro vided to patient 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 BAN WILKES RN LORENZO 05/28/2018 Last Documented On 9 9:44AM ; [facility] Ordered Clinical summary pro vided to patient NEW SCREW DOWN EXAM with BAN WILKES RN LORENZO 05/27/2017 Last Documented On 8 2:51PM ; [facility] Pending Tests Order Diagnosis Results Due Ordering P rovider Lab LIPID PANEL WITH REF LEYDA TO DIRECT LDL 12/02/22 RAY ROCK MD Last Documented On 3 4:54PM ; [facility] Instructions to patient Instructed to call if excess shreyas bleeding or abdominal/pelvic pain Last Documented On 3 10:49AM ; [facility] Instructions For Patient: Mo nthly Self Breast Exam Last Documented On 3 10:49AM ; [facility] Recommend diet and exercise at least 30 min three times per week Last Documented On 3 10:49AM ; [facility] Instructed to call if excess shreyas bleeding or abdominal/pelvic pain Last Documented On 2 10:45AM ; [facility] Instructions For Patient: Mo nthly Self Breast Exam Last Documented On 2 10:45AM ; [facility] Recommend diet and exercise at least 30 min three times per week Last Documented On 2 10:45AM ; [facility] Instructions for patient : B reast Self Exam discussed and technique reviewed Last Documented On 1 9:40AM ; [facility] Use a condom during sexual i ntercourse Last Documented On 1 9:40AM ; [facility] Instructed to call if excess shreyas bleeding or abdominal/pelvic pain Last Documented On 1 9:40AM ; [facility] Recommend diet and exercise at least 30 min three times per week Last Documented On 1 9:40AM ; [facility] Instructions for patient : B reast Self Exam discussed and technique reviewed Last Documented On 0 8:54AM ; [facility] Instructed to call if excess shreyas bleeding or abdominal/pelvic pain Last Documented On 0 8:54AM ; [facility] Recommend diet and exercise at least 30 min three times per week Last Documented On 0 8:54AM ; [facility] Instructions for patient : B reast Self Exam discussed and technique reviewed Last Documented On 9 8:40AM ; [facility] Instructed to call if excess shreyas bleeding or abdominal/pelvic pain Last Documented On 9 8:40AM ; [facility] Recommend diet and exercise at least 30 min three times per week Last Documented On 9 8:40AM ; [facility] Instructions for patient : B reast Self Exam discussed and technique reviewed Last Documented On 8 2:10PM ; [facility] Instructed to call if excess shreyas bleeding or abdominal/pelvic pain Last Documented On 8 2:10PM ; [facility] Recommend diet and exercise at least 30 min three times per week Last Documented On 8 2:10PM ; [facility] Education and Decision Aids were provided during visit for: Patient education :Pt. infor med of CT of abdomen and pelvis results today and handout given on HSG procedure. Pt. to be notified of all results for plan of care as well as need for surgical consult post HSG Last Documented On 3 2:36PM ; [facility] Patient counseling : I discu ssed with the patient possible causes of abnormal Pap smear and recommended evaluation. Potential treatments were also discussed Last Documented On 3 2:32PM ; [facility] Patient counseling : Use of contraceptives discussed in detail including rare occurrence of heart attack, stroke, and leg clots. Patient understands that smoking increases the risk of serious side effects with any steroid-based contraceptive method Last Documented On 3 2:38PM ; [facility] Patient education RE: warnin g signals associated with hormonal contraceptive use including abdominal, chest, or leg pain, headaches or visual disturbances Last Documented On 3 10:49AM ; [facility] Patient Education: Daily jos cium and vitamin D Last Documented On 3 10:49AM ; [facility] Patient education RE: warnin g signals associated with hormonal contraceptive use including abdominal, chest, or leg pain, headaches or visual disturbances Last Documented On 2 10:45AM ; [facility] Patient Education: Daily jos cium and vitamin D Last Documented On 2 10:45AM ; [facility] Patient counseling : I discu ssed with the patient possible causes of abnormal Pap smear and recommended evaluation. Potential treatments were also discussed Last Documented On 1 9:44AM ; [facility] Patient education RE: warnin g signals associated with hormonal contraceptive use including abdominal, chest, or leg pain, headaches or visual disturbances Last Documented On 1 9:40AM ; [facility] Patient Education: Daily jos cium and vitamin D Last Documented On 1 9:40AM ; [facility] Patient education RE: warnin g signals associated with hormonal contraceptive use including abdominal, chest, or leg pain, headaches or visual disturbances Last Documented On 0 8:54AM ; [facility] Patient Education: Daily jos cium and vitamin D Last Documented On 0 8:54AM ; [facility] Patient education RE: warnin g signals associated with hormonal contraceptive use including abdominal, chest, or leg pain, headaches or visual disturbances Last Documented On 9 8:40AM ; [facility] Patient Education: Daily jos cium and vitamin D Last Documented On 9 8:40AM ; [facility] Patient counseling : Use of contraceptives discussed in detail including rare occurrence of heart attack, stroke, and leg clots. Patient understands that smoking increases the risk of serious side effects with any steroid-based contraceptive method Last Documented On 8 8:08AM ; [facility] Patient counseling : Use of oral contraceptives discussed in detail including rare occurrence of heart attack, stroke, and leg clots. Patient understands that smoking increases the risk of serious side effects with any steroid-based contraceptive method Last Documented On 8 2:51PM ; [facility] Patient Education: Daily jos cium and vitamin D Last Documented On 8 2:10PM ; [facility] control consent review ed and signed Last Documented On 8 2:44PM ; [facility] Assessments Includes: Assessments for all patient encounters Findings Encounter Date Assessment of visit for: dunia veillance of contraceptive CONSULTATION- ESTABLISHED PATIENT with RAY ROCK MD 12/02/2022 Last Documented On 3 4:54PM ; [facility] Hyperlipidemia CONSULTATION- ESTABLISHED PAT IENT with RAY ROCK MD 12/02/2022 Last Documented On 3 4:54PM ; [facility] Assessment of abnormal Pap s mear of cervix FOLLOW UP with BAN WILKES RN [facility] 09/19/2022 Last Documented On 3 2:42PM ; [facility] Contraceptive surveillance FOLLOW UP with BAN WILKES RN [facility] 09/19/2022 Last Documented On 3 2:42PM ; [facility] Encounter for contraceptive management, sterilization FOLLOW UP with BAN WILKES RN [facility] 09/19/2022 Last Documented On 3 2:42PM ; [facility] NORMAL FEMALE EXAM WELL WOMAN - ESTABLI SHED PT with BAN WILKES RN [facility] 08/15/2022 Last Documented On 3 12:01PM ; [facility] Screen malignant neoplasm cervix WELL WO MAN - ESTABLISHED PT with BAN WILKES RN L[facility]ENZO 08/15/2022 Last Documented On 3 12:01PM ; [facility] NORMAL FEMALE EXAM WELL WOMAN - ESTABLI SHED PT with BAN WILKES RN [facility] 08/13/2021 Last Documented On 2 11:01AM ; [facility] Screen malignant neoplasm cervix WELL WO MAN - ESTABLISHED PT with BAN WILKES RN [facility] 08/13/2021 Last Documented On 2 11:01AM ; [facility] Assessment of abnormal Pap s mear of cervix FOLLOW UP with BAN WILKES RN L[facility] 08/09/2020 Last Documented On 1 9:56AM ; [facility] NORMAL FEMALE EXAM WELL WOMAN - ESTABLI SHED PT with BAN WILKES RN [facility] 06/22/2020 Last Documented On 1 10:00AM ; [facility] Screen malignant neoplasm cervix WELL WO MAN - ESTABLISHED PT with BAN WILKES RN [facility] 06/22/2020 Last Documented On 1 10:00AM ; [facility] Dysfunctional uterine bleedi ng resolved on current OCP SCREW DOWN EXAM with BAN WILKES RN [facility] 06/01/2019 Last Documented On 0 9:14AM ; [facility] NORMAL FEMALE EXAM SCREW DOWN EXAM with BAN Gupta [facility] 06/01/2019 Last Documented On 0 9:14AM ; [facility] Screen malignant neoplasm cervix SCREW DOWN EXAM with Benjamin WILKES RN [facility] 06/01/2019 Last Documented On 0 9:14AM ; [facility] Dysfunctional uterine bleeding ANNUAL PM P EXAM with BAN WILKES RN [facility] 05/28/2018 Last Documented On 9 9:44AM ; [facility] Family history of malignant female breast neoplasm 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 BAN WILKES RN [facility] 05/28/2018 Last Documented On 9 9:44AM ; [facility] NORMAL FEMALE EXAM 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 BAN WILKES RN [facility] 05/28/2018 Last Documented On 9 9:44AM ; [facility] Screen malignant neoplasm cervix 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 BAN WILKES RN [facility] 05/28/2018 Last Documented On 9 9:44AM ; [facility] Encounter for contraceptive surveillance, unspecified 3 MONTH CHECK with BAN WILKES RN [facility] 08/26/2017 Last Documented On 8 8:29AM ; [facility] Dysfunctional uterine bleeding NEW SCREW DOWN EXAM with BAN WILKES RN [facility] 05/27/2017 Last Documented On 8 2:51PM ; [facility] NORMAL FEMALE EXAM NEW SCREW DOWN EXAM with BAN PAUL RN [facility] 05/27/2017 Last Documented On 8 2:51PM ; [facility] Screen malignant neoplasm cervix NEW SCREW DOWN EXAM with BAN WILKES RN [facility] 05/27/2017 Last Documented On 8 2:51PM ; [facility] Instructions Includes: Instructions for all patient encounters Instructions to patient Instructed to call if excess shreyas bleeding or abdominal/pelvic pain Last Documented On 3 10:49AM ; [facility] Instructions For Patient: Mo nthly Self Breast Exam Last Documented On 3 10:49AM ; [facility] Recommend diet and exercise at least 30 min three times per week Last Documented On 3 10:49AM ; [facility] Instructed to call if excess shreyas bleeding or abdominal/pelvic pain Last Documented On 2 10:45AM ; [facility] Instructions For Patient: Mo nthly Self Breast Exam Last Documented On 2 10:45AM ; [facility] Recommend diet and exercise at least 30 min three times per week Last Documented On 2 10:45AM ; [facility] Instructions for patient : B reast Self Exam discussed and technique reviewed Last Documented On 1 9:40AM ; [facility] Use a condom during sexual i ntercourse Last Documented On 1 9:40AM ; [facility] Instructed to call if excess shreyas bleeding or abdominal/pelvic pain Last Documented On 1 9:40AM ; [facility] Recommend diet and exercise at least 30 min three times per week Last Documented On 1 9:40AM ; [facility] Instructions for patient : B reast Self Exam discussed and technique reviewed Last Documented On 0 8:54AM ; [facility] Instructed to call if excess shreyas bleeding or abdominal/pelvic pain Last Documented On 0 8:54AM ; [facility] Recommend diet and exercise at least 30 min three times per week Last Documented On 0 8:54AM ; [facility] Instructions for patient : B reast Self Exam discussed and technique reviewed Last Documented On 9 8:40AM ; [facility] Instructed to call if excess shreyas bleeding or abdominal/pelvic pain Last Documented On 9 8:40AM ; [facility] Recommend diet and exercise at least 30 min three times per week Last Documented On 9 8:40AM ; [facility] Instructions for patient : B reast Self Exam discussed and technique reviewed Last Documented On 8 2:10PM ; [facility] Instructed to call if excess shreyas bleeding or abdominal/pelvic pain Last Documented On 8 2:10PM ; [facility] Recommend diet and exercise at least 30 min three times per week Last Documented On 8 2:10PM ; [facility] Education and Decision Aids were provided during visit for: Patient education :Pt. infor med of CT of abdomen and pelvis results today and handout given on HSG procedure. Pt. to be notified of all results for plan of care as well as need for surgical consult post HSG Last Documented On 3 2:36PM ; [facility] Patient counseling : I discu ssed with the patient possible causes of abnormal Pap smear and recommended evaluation. Potential treatments were also discussed Last Documented On 3 2:32PM ; [facility] Patient counseling : Use of contraceptives discussed in detail including rare occurrence of heart attack, stroke, and leg clots. Patient understands that smoking increases the risk of serious side effects with any steroid-based contraceptive method Last Documented On 3 2:38PM ; [facility] Patient education RE: warnin g signals associated with hormonal contraceptive use including abdominal, chest, or leg pain, headaches or visual disturbances Last Documented On 3 10:49AM ; [facility] Patient Education: Daily jos cium and vitamin D Last Documented On 3 10:49AM ; [facility] Patient education RE: warnin g signals associated with hormonal contraceptive use including abdominal, chest, or leg pain, headaches or visual disturbances Last Documented On 2 10:45AM ; [facility] Patient Education: Daily jos cium and vitamin D Last Documented On 2 10:45AM ; [facility] Patient counseling : I discu ssed with the patient possible causes of abnormal Pap smear and recommended evaluation. Potential treatments were also discussed Last Documented On 1 9:44AM ; [facility] Patient education RE: warnin g signals associated with hormonal contraceptive use including abdominal, chest, or leg pain, headaches or visual disturbances Last Documented On 1 9:40AM ; [facility] Patient Education: Daily jos cium and vitamin D Last Documented On 1 9:40AM ; [facility] Patient education RE: vanna chavez signals associated with hormonal contraceptive use including abdominal, chest, or leg pain, headaches or visual disturbances Last Documented On 0 8:54AM ; [facility] Patient Education: Daily jos cium and vitamin D Last Documented On 0 8:54AM ; [facility] Patient education RE: warnin g signals associated with hormonal contraceptive use including abdominal, chest, or leg pain, headaches or visual disturbances Last Documented On 9 8:40AM ; [facility] Patient Education: Daily jos cium and vitamin D Last Documented On 9 8:40AM ; [facility] Patient counseling : Use of contraceptives discussed in detail including rare occurrence of heart attack, stroke, and leg clots. Patient understands that smoking increases the risk of serious side effects with any steroid-based contraceptive method Last Documented On 8 8:08AM ; [facility] Patient counseling : Use of oral contraceptives discussed in detail including rare occurrence of heart attack, stroke, and leg clots. Patient understands that smoking increases the risk of serious side effects with any steroid-based contraceptive method Last Documented On 8 2:51PM ; [facility] Patient Education: Daily jos cium and vitamin D Last Documented On 8 2:10PM ; [facility] control consent review ed and signed Last Documented On 8 2:44PM ; [facility] Medical Equipment - Implanted Devices Includes: Current and historical Devices No Medical Equipment Recorded Medications Includes: Current and historical Medications Current Medications (continue as prescribed) ZyrTEC Allergy 10 MG Oral Tablet 08/13/2021 Provider : Diagnosis: Last Documented On 08/13/2021 10:38AM By Annette Andres ; [facility] Womens Multivitamin Oral Tablet 06/22/2020 Provider: Diagnosis: Last Documented On 1 9:20AM By MOISÉS DONALDSON ; [facility] Past Medications on file Lo Loestrin Fe 1 MG-10 MCG / 10 MCG Oral Tablet 09/19/2022 - 12/12/2022 Provider: BAN VELASQUEZ BC Diagnosis: Encounter for surveillance of contraceptives, unspecified One tablet daily TAKE DIRECTED Last Documented On 3 2:34PM By BAN RICARDO ; [facility] Lo Loestrin Fe 1 MG-10 MCG / 10 MCG Oral Tablet 08/15/2022 - 09/19/2022 Provider: BAN VELASQUEZ BC Diagnosis: Other specified abnormal uterine and vaginal bleeding One tablet daily TAKE DIRECTED Last Documented On 3 2:34PM By BAN RICARDO ; [facility] Condoms Miscellaneous 08/15/2022 - 09/14/2022 Provider: BAN VELASQUEZ BC Diagnosis: Other specified abnormal uterine and vaginal bleeding as directed PLEASE DISPENSE MAGNUM CONDOMS Last Documented On 3 12:00PM By BAN RICARDO ; [facility] 03/15 1-20 MG-MCG Oral Tablet 07/03/2022 - 09/19/2022 Provider: BAN VELASQUEZ BC Diagnosis: Other specified abnormal uterine and vaginal bleeding One tablet daily Dispense 3 packs and take active tablets only for menstrual suppression Last Documented On 09/19/2022 1:58PM By Annette Andres ; [facility] Julyl 03/15 1-20 MG-MCG Oral Tablet 08/15/2021 - 07/03/2022 Provider: BAN VELASQUEZ BC Diagnosis: Other specified abnormal uterine and vaginal bleeding One tablet daily Dispense 3 packs and take active tablets only for menstrual suppression Last Documented On 3 10:08AM By BAN RICARDO ; [facility] Lo Loestrin Fe 1 MG-10 MCG / 10 MCG Oral Tablet 08/13/2021 - 08/15/2021 Provider: BAN VELASQUEZ BC Diagnosis: One tablet daily Last Documented On 2 2:46PM By BAN RICARDO ; [facility] Lo Loestrin Fe 1 MG-10 MCG / 10 MCG Oral Tablet 09/27/2020 - 08/15/2022 Provider: BAN WILKES RN [facility]ZO Diagnosis: Other specified abnormal uterine and vaginal bleeding One tablet daily TAKE DIRECTED Last Documented On 3 12:00PM By BAN RICARDO ; [facility] Lo Loestrin Fe 1 MG-10 MCG / 10 MCG Oral Tablet 07/26/2020 - 08/13/2021 Provider: BAN Gupta L[facility] Diagnosis: One tablet daily Last Documented On 2 11:00AM By BAN PRESLEY ; [facility] Lo Loestrin Fe 1 MG-10 MCG / 10 MCG Oral Tablet 07/26/2020 - 09/27/2020 Provider: BAN WILKES RN L[facility]ENZO Diagnosis: Other specified abnormal uterine and vaginal bleeding One tablet daily TAKE DIRECTED Last Documented On 1 1:19PM By BAN PRESLEY ; [facility] Lo Loestrin Fe 1 MG-10 MCG / 10 MCG Oral Tablet 06/22/2020 - 07/26/2020 Provider: BAN WILKES RN LORENZO Diagnosis: Other specified abnormal uterine and vaginal bleeding One tablet daily TAKE DIRECTED Last Documented On 1 3:21PM By BAN PRESLEY ; [facility] Biotin Plus Keratin 27184-747 MCG-MG Oral Tablet 06/22/2020 - 08/13/2021 Provider: Diagnosis: Last Documented On 08/13/2021 10:38AM By Annette Andres ; [facility] B-12 5000 MCG Oral Capsule 06/22/2020 - 08/13/2021 Pro vider: Diagnosis: Last Documented On 08/13/2021 10:37AM By Annette Andres ; [facility] Glucosamine-Chondroitin 1500 -1200 MG/30ML Oral Liquid 06/22/2020 - 08/13/2021 Provider: Diagnosis: not liquid- pill form Last Documented On 08/13/2021 10:38AM By Annette Andres ; [facility] Lo Loestrin Fe 1 MG-10 MCG / 10 MCG Oral Tablet 11/24/2019 - 06/22/2020 Provider: BAN VELASQUEZ Diagnosis: Other specified abnormal uterine and vaginal bleeding One tablet daily TAKE DIRECTED Last Documented On 1 9:54AM By BAN RICARDO ; [facility] Junel 03/15 1-20 MG-MCG Oral Tablet 10/28/2019 - 11/24/2019 Provider: BAN ALMANZAR Diagnosis: Other specified abnormal uterine and vaginal bleeding One tablet daily Last Documented On 0 2:31PM By BAN RICARDO ; [facility] Lo Loestrin Fe 1 MG-10 MCG / 10 MCG Oral Tablet 06/01/2019 - 10/28/2019 Provider: BAN VELASQUEZ BC Diagnosis: Other specified abnormal uterine and vaginal bleeding One tablet daily USE DIRECTED Last Documented On 0 2:26PM By BAN RICARDO ; [facility] Lo Loestrin Fe 1 MG-10 MCG /10 MCG Oral Tablet 05/28/2018 - 06/01/2019 Provider: BAN ALMANZAR Diagnosis: Other specified abnormal uterine and vaginal bleeding One tablet daily USE DIRECTED Last Documented On 0 9:12AM By BAN RICARDO ; [facility] Sudafed 30MG Oral Tablet 05/28/2018 - 08/13/2021 Provi esau: Diagnosis: Last Documented On 08/13/2021 10:38AM By Annette Andres ; [facility] Lo Loestrin Fe 1 MG-10 MCG /10 MCG Oral Tablet 11/16/2017 - 05/28/2018 Provider: BAN VELASQUEZ BC Diagnosis: Other specified abnormal uterine and vaginal bleeding One tablet daily USE DIRECTED Last Documented On 9 9:02AM By BAN RICARDO ; [facility] Lo Loestrin Fe 1 MG-10 MCG /10 MCG Oral Tablet 08/26/2017 - 11/14/2017 Provider: BAN VELASQUEZ BC Diagnosis: Encounter for surveillance of contraceptives, unspecified One tablet daily USE DIRECTED Last Documented On 8 10:35AM By BAN RICARDO ; [facility] Aviane 0.1-20MG-MCG Oral Tablet 08/26/2017 - 9 Provider: Diagnosis: Last Documented On 9 10:32AM By BAN RICARDO ; [facility] Aviane 0.1-20MG-MCG Oral Tablet 05/27/2017 - 08/19/2017 Provider: BAN VELASQUEZ BC Diagnosis: Other specified abnormal uterine and vaginal bleeding TAKE 1 TAB DAILY START PACK Friday AFTER MENSES BEGINS Last Documented On 8 2:48PM By BAN VELASQUEZ-BC ; [facility] Medications Administered Includes: Administered Medications in patient's chart No Administered Medications Recorded Results Includes: Results from 03/30/2023 through 03/30/2024 No Results Recorded For Specified Dates History of Present Illness History of Present Illness not supported for this document type No History of Present Illness Recorded Social History Description Last Updated Alcohol use: 2 drinks or less per day oc c 08/15/2022 Last Documented On 3 12:01PM ; [facility] control is being practiced BTL Last Documented On 3 12:01PM ; [facility] Current nonsmoker 08/15/2022 Last Documented On 3 12:01PM ; [facility] Educational level 08/15/2022 Last Documented On 3 12:01PM ; [facility] Exercising regularly Activities 08/16/19 Last Documented On 3 12:01PM ; [facility] Former smoker 08/15/2022 Last Documented On 3 12:01PM ; [facility] In monogamous relationship 08/15/2022 Last Documented On 3 12:01PM ; [facility] Marital history 08/15/2022 Last Documented On 3 12:01PM ; [facility] Non-smoker 08/15/2022 Last Documented On 3 12:01PM ; [facility] Not using alcohol 08/15/2022 Last Documented On 3 12:01PM ; [facility] Not using drugs 08/15/2022 Last Documented On 3 12:01PM ; [facility] 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 Last Documented On 3 12:01PM ; [facility] Sexually active 08/15/2022 Last Documented On 3 12:01PM ; [facility] Sexually active with 1 partners in the l ast year 08/15/2022 Last Documented On 3 12:01PM ; [facility] Tobacco non-user 08/15/2022 Last Documented On 3 12:01PM ; [facility] Currently 08/13/2021 Last Documented On 2 11:01AM ; [facility] Smoking Status Unknown Procedures and Surgical History Surgical History Last Updated History of tubal ligation 2003 Dr Zurita in [place] 12/02/2022 Last Documented On 3 4:54PM ; [facility] History of appendectomy 01/27/202108/13 Last Documented On 2 11:01AM ; [facility] Medical History Includes: Medical History in patient's chart Description Last Updated Contraception: tubal 2004 [place]- Dr Zurita 12/02/2022 Last Documented On 3 4:54PM ; [facility] Last pap smear date 08/15/2022 08/15/22 Last Documented On 3 4:54PM ; [facility] Result: normal no ECC; repeat pap 3 WNL 12/02/2022 Last Documented On 3 4:54PM ; [facility] Last mammogram date: 09/19/2022 3 Last Documented On 3 4:54PM ; [facility] Result: normal [facility] 12/02/2022 Last Documented On 3 4:54PM ; [facility] LMP: 08/15/2022 Just spotting every once and a while 08/15/2022 Last Documented On 3 12:01PM ; [facility] History of screening mammogram was perfo rmed 08/202108/15/2022 Last Documented On 3 12:01PM ; [facility] A mammogram was performed 08/13/2021 Last Documented On 2 11:01AM ; [facility] History of cervical Pap smear 06/22/2020 WNL no ECC 08/09/2020 Last Documented On 1 9:56AM ; [facility] Vaginal delivery x 2 06/22/2020 Last Documented On 1 10:00AM ; [facility] Primary Care Provider: Kena Daniel- part of [facility] system 06/22/2020 Last Documented On 1 10:00AM ; [facility] Sexually active 06/01/2019 Last Documented On 0 9:14AM ; [facility] History of dysfunctional uterine bleedin g 05/28/2018 Last Documented On 9 9:44AM ; [facility] Status post tubal ligation 200305/28/19 Last Documented On 8 2:51PM ; [facility] Heart Disease- paternal grandfather ~hyp ertension- both sides 05/27/2017 Last Documented On 8 2:51PM ; [facility] 2 05/27/2017 Last Documented On 8 2:51PM ; [facility] Para 2 05/27/2017 Last Documented On 8 2:51PM ; [facility] Family History Includes: Family History in patient's chart Description Last Updated Maternal history of malignan t female breast neoplasm mom in 50's dx. 2018 intraductal carcinoma, ER+ RI+ HER 2 - 12/02/2022 Last Documented On 3 4:54PM ; [facility] Paternal uncle's history of malignant neoplasm of large intestine 2 different paternal uncles ~maternal uncle 12/02/2022 Last Documented On 3 4:54PM ; [facility] Family history of malignant neoplasm of large intestine 2 different paternal uncles ~maternal uncle 06/22/2020 Last Documented On 1 10:00AM ; [facility] Heart Disease- paternal grandfather ~hyp ertension- both sides 05/28/2018 Last Documented On 9 9:44AM ; [facility] M uncle Prostate CA 05/28/2018 Last Documented On 9 9:44AM ; [facility] Family history of malignant female breast neoplasm mom in 50's dx. 2018 intraductal carcinoma, ER+ RI+ HER 2 - 05/28/2018 Last Documented On 9 9:44AM ; [facility] Family history of diabetes m ellitus paternal grandparents ~sister during 05/27/2017 Last Documented On 8 2:51PM ; [facility] Review of Systems Review [...] Subscriber Relationship Effect shreyas Dates 1 - [facility] [id number] DAYA WHITE Self Clinical Notes Includes: Signed Clinical Notes starting from 03/15/2022 No Clinical Notes Recorded
--- OUTSIDE RECORDS SUMMARY | 2024-03-30 14:47 | XMS_ITS | Referral Summary ---
Author Organization [facility] Care Team Providers Care Computer Engineering Professor Name Role Phone Annette Justice MD Primary Care Provider + Amanda Ann MD Unavailable [phone] Encounters Date Type Department Care Team Description 01/14/2024 Orders Only [facility] [address] [place] [address] [address] [place] [address] Provider, MD Donn from Last 3 Months Allergies No known active allergies Medications ibuprofen (ADVIL,MOTRIN) suspension 100 mg/5 mL Take by mouth every 4 (four) hours as needed for pain Active norethindrone-e .estradioL-iron (LO LOESTRIN FE) 1 mg-10 mcg (24)/10 mcg (2) tablet per tablet Take 1 tablet by mouth daily Active biotin-keratin 10,000-100 mcg-mg tablet Take 25,000 mg by mouth Active ascorbic acid (ascorbic acid with nehemias hips) 500 mg tablet,chewable Acti ve cyanocobalamin (Vitamin B-12) 2,500 mcg tablet, sublingualIndic ations:Preventi on of Vitamin B12 Deficiency Activ e omega-3 fatty acids-fish oil 300-1,000 mg capsule Take 500 capsules (500 g total) by mouth daily Active multivitamin tabletIndicatio ns:Vitamin Deficiency Prevention Take 1 tablet by mouth Active Active Problems Problem Noted Date Diagnosed Date Family history of breast cancer 12/10/2023 Heterogeneously dense tissue of both breasts on mammography 12/10/2023 Inconclusive mammogram due to dense breasts 11/24 Encounter for screening mammogram for breast can cer 12/10/2023 Breast cancer screening, high risk patient 12/09 Social History Tobacco Use Types Packs/Day Years Used Date Smoking Tobacco: Former Smokeless Tobacco: Former Quit: 2009 Alcohol Use Standard Drinks/Week Comments Yes 0 (1 standard drink = 0.6 oz pur e alcohol) AUDIT-C Answer Date Recorded Frequency of Alcohol Consumption Not on file 12/10/2023 Q2: How many drinks containi ng alcohol do you have on a typical day when you are drinking? 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 Not on file Not on file Not on file Last Filed Vital Signs Vital Sign Reading Time Taken Comments Blood Pressure 134/79 12/10/2023 8:08 AM CDT Pulse 69 12/10/2023 8:08 AM CDT Temperature 36.9 ??C (98.4 ??F) 12/10/2023 8:08 AM CD T Respiratory Rate 18 12/10/2023 8:08 AM CDT Oxygen Saturation 99% 12/10/2023 8:08 AM CDT Inhaled Oxygen Concentration - - Weight 72 kg (158 lb 12.8 oz) 12/10/2023 8:08 AM CDT Height 156.2 cm (5' 1.5 ) 12/10/2023 8:08 AM CDT Body Mass Index 29.52 12/10/2023 8:08 AM CDT Plan of Treatment Not on file Procedures Procedure Name Priority Date/Time Associated Diagnosis Comments SCREENING MAMMOGRAM Schedule Routine, Read Routine (OP Routine) 11/28/2023 4:15 PM CDT from Last 3 Months or Most Recently Relevant to Health Maintenance Results * Screening Mammogram (11/28/2023 4:15 PM CDT) Anatomical Region Laterality Modality Breast N/A Mammography us Historical Provider MD ANNE MAMMO PROCEDURES Savi l Result from Last 3 Months or Most Recently Relevant to Health Maintenance [place] ACCESS OOS [facility] CHOICE PLUS [facility] HMO/PPO Address[place] [address] [address] [place] [address] [facility] CHOICE PLUS [facility] HMO/PPO Address: [address] [address] [place] [address] Care Teams Computer Engineering Professor Relationship Specialty Start Date End Date Annette Justice MD PCP - General 07/21/20 Amanda Ann MD [address] [place] [address] Referring Physician Obstetrics and Gynecology 09/25/23
--- OUTSIDE RECORDS SUMMARY | 2024-03-30 14:47 | XMS_ITS | Clinical Summary ---
Author Organization [facility] Address [address] [place] [address] Phone Care Team Providers Care Family Preservation Officer Name Role Phone SHWETA SCOTT, RAY Alexander Unavailable [phone] SHY VELIZ MD Primary Care Provider [phone] Reason for Visit and Chief Complaint Pt presents for problem in addition to annual exam Pt reports she fell in 02/14 and radiology report of coccyx identified her L Filshie clip was missing. Pt. PCP instructed her to contact her TOLL GATE KEEPER when she was in their office 05/16. [...] [facility] Note: Unchanged Visit For: Contraceptive Surveillance 12/02/2022 RAY ROCK MD Active Last Documented On 12/02/2022 4:44PM ; [facility] Note: Unchanged Dysfunctional Uterine Bleeding 05/28/2018 BAN WILKES RN [facility] Active Last Documented On 05/28/2018 9:42AM ; [facility] Note: Unchanged Plan of Treatment - Clinical summary provided to patient - Last Documented On 08/15/2022 12:01PM ; [facility] PT TO CALL WITH ANY CHANGE IN STATUS ALL QUESTIONS ANSWERED WITH UNDERSTANDING VERBALIZED BY PT. - Last Documented On 08/15/2022 12:01PM ; [facility] Pending Tests Order Diagnosis Results Due Ordering Provider Radiology @ other - CT Scan Abd/Pelvis CT *w/ contrast Encounter for sterilization 08/29/22 BAN WILKES RN [facility] Last Documented On 4 10:01AM ; [facility] Lab LIPID PANEL, STANDARD 11/13/22 SHELLY WILKES RN [facility] Last Documented On 4 10:01AM ; [facility] Instructions to patient Instructed to call if excess shreyas bleeding or abdominal/pelvic pain Last Documented On 3 10:49AM ; [facility] Instructions For Patient: Mo nthly Self Breast Exam Last Documented On 3 10:49AM ; [facility] Recommend diet and exercise at least 30 min three times per week Last Documented On 3 10:49AM ; [facility] Education and Decision Aids were provided during visit for: Patient education RE: vanna chavez signals associated with hormonal contraceptive use including abdominal, chest, or leg pain, headaches or visual disturbances Last Documented On 3 10:49AM ; [facility] Patient Education: Daily jos cium and vitamin D Last Documented On 3 10:49AM ; [facility] Assessments Includes: Assessments from this encounter Findings - [Z01.419 - Encounter for gynecological examination (general) (routine) without abnormal findings] NORMAL FEMALE EXAM - Last Documented On 08/15/2022 12:01PM ; [facility] - [Z12.4 - Encounter for screening for malignant neoplasm of cervix] Screen malignant neoplasm cervix - Last Documented On 08/15/2022 12:01PM ; [facility] Instructions Includes: Instructions from this encounter Instructions to patient Instructed to call if excess shreyas bleeding or abdominal/pelvic pain Last Documented On 3 10:49AM ; [facility] Instructions For Patient: Mo nthly Self Breast Exam Last Documented On 3 10:49AM ; [facility] Recommend diet and exercise at least 30 min three times per week Last Documented On 3 10:49AM ; [facility] Education and Decision Aids were provided during visit for: Patient education RE: vanna chavez signals associated with hormonal contraceptive use including abdominal, chest, or leg pain, headaches or visual disturbances Last Documented On 3 10:49AM ; [facility] Patient Education: Daily jos cium and vitamin D Last Documented On 3 10:49AM ; [facility] Medical Equipment - Implanted Devices Includes: Current [...] MD[facility] Condoms Miscellaneous Provider: BAN VELASQUEZ 30 day supply: 10 each, 0 refills Diagnosis: Other specified abnormal uterine and vaginal bleeding as directed PLEASE DISPENSE MAGNUM CONDOMS Last Documented On 3 12:00PM By BAN RICARDO ; [facility] Current Medications (continue as prescribed) ZyrTEC Allergy 10 MG Oral Tablet 08/13/2021 Provider : Diagnosis: Last Documented On 08/13/2021 10:38AM By Annette Andres ; [facility] Womens Multivitamin Oral Tablet 06/22/2020 Provider: Diagnosis: Last Documented On 1 9:20AM By MOISÉS DONALDSON ; [facility] Past Medications on file Lo Loestrin Fe 1 MG-10 MCG / 10 MCG Oral Tablet 09/19/2022 - 12/12/2022 Provider: BAN VELASQUEZ Diagnosis: Encounter for surveillance of contraceptives, unspecified One tablet daily TAKE DIRECTED Last Documented On 3 2:34PM By BAN RICARDO ; [facility] Aviane 0.1-20MG-MCG Oral Tablet 05/27/2017 - 08/19/2017 Provider: BAN VELASQUEZ BC Diagnosis: Other specified abnormal uterine and vaginal bleeding TAKE 1 TAB DAILY START PACK Friday AFTER MENSES BEGINS Last Documented On 8 2:48PM By BAN VELASQUEZ-JENELLE ; [facility] [...] Last Documented: On 08/15/2022 10:27A M ; [facility] [...] 08/15/2022 Last Documented On 3 12:01PM ; [facility] control is being practiced BTL Last Documented On 3 12:01PM ; [facility] Current nonsmoker 08/15/2022 Last Documented On 3 12:01PM ; [facility] Educational level 08/15/2022 Last Documented On 3 12:01PM ; [facility] Exercising regularly Activities 08/16/19 23 Last Documented On 3 12:01PM ; [facility] Former smoker 08/15/2022 Last Documented On 3 12:01PM ; [facility] In monogamous relationship 08/15/2022 Last Documented On 3 12:01PM ; [facility] Marital history 08/15/2022 Last Documented On 3 12:01PM ; [facility] Non-smoker 08/15/2022 Last Documented On 3 12:01PM ; [facility] Not using alcohol 08/15/2022 Last Documented On 3 12:01PM ; 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 23 Last Documented On 3 12:01PM ; [facility] Sexually active 08/15/2022 Last Documented On 3 12:01PM ; [facility] Sexually active with 1 partners in the l ast year 08/15/2022 Last Documented On 3 12:01PM ; [facility] Tobacco non-user 08/15/2022 Last Documented On 3 12:01PM ; [facility] control is being practiced BTL and OCPs 08/15/2022 Last Documented On 3 12:01PM ; [facility] Smoking Status Unknown Procedures and Surgical History Includes: Procedures from this encounter Procedures Code Diagnosis Performing Provider Service L ocation Service Date education and instructions Last Documented On 3 10:49AM ; [facility] explanation of plan Last Documented On 3 10:49AM ; [facility] medical regimen review Last Documented On 3 10:49AM ; [facility] Discussed Contraception Pt i nformed d/t lipid [...] answered Last Documented On 3 11:59AM ; [facility] Urged Exercise and Diet , exercise at le ast 30 min three times per week Last Documented On 3 10:49AM ; [facility] cervical Pap smear 82842 Last Documented On 3 10:49AM ; [facility] history of cervical Pap smear 07/2021 01956 Last Documented On 3 10:18AM ; [facility] Surgical History Last Updated History of tubal ligation 08/05/2005 10/0 10/2022 Last Documented On 3 10:15AM ; [facility] History of appendectomy 01/27/202108/13 Last Documented On 3 10:15AM ; [facility] Medical History Includes: Medical History addressed during this encounter Description Last Updated Contraception: tubal 12/02/2022 Last Documented On 3 10:15AM ; [facility] LMP: 08/15/2022 Just spotting every once and a while 08/15/2022 Last Documented On 3 12:01PM ; [facility] Last mammogram date: 08/202108/15/2022 Last Documented On 3 12:01PM ; [facility] Last pap smear date 07/202108/15/2022 Last Documented On 3 12:01PM ; [facility] History of screening mammogram was perfo rmed 08/202108/15/2022 Last Documented On 3 12:01PM ; [facility] A mammogram was performed 08/13/2021 Last Documented On 3 10:15AM ; [facility] History of cervical Pap smear 06/22/2020 WNL no ECC 08/09/2020 Last Documented On 3 10:15AM ; [facility] Vaginal delivery x 2 06/22/2020 Last Documented On 3 10:15AM ; [facility] Primary Care Provider: Kena Daniel- part of [place] system 06/22/2020 Last Documented On 3 10:15AM ; [facility] Sexually active 06/01/2019 Last Documented On 3 10:15AM ; [facility] History of dysfunctional uterine bleedin g 05/28/2018 Last Documented On 3 10:15AM ; [facility] Status post tubal ligation 200305/28/19 18 Last Documented On 3 10:15AM ; [facility] Heart Disease- paternal grandfather ~hyp ertension- both sides 05/27/2017 Last Documented On 3 10:15AM ; [facility] 2 05/27/2017 Last Documented On 3 10:15AM ; [facility] Para 2 05/27/2017 Last Documented On 3 10:15AM ; [facility] Family History Includes: Family History addressed during this encounter Description Last Updated Family history of malignant neoplasm of large intestine 2 different paternal uncles ~maternal uncle 06/22/2020 Last Documented On 3 10:15AM ; [facility] Heart Disease- paternal grandfather ~hyp ertension- both sides 05/28/2018 Last Documented On 3 10:15AM ; [facility] M uncle Prostate CA 05/28/2018 Last Documented On 3 10:15AM ; [facility] Family history of malignant female breast neoplasm mom in 50's dx. 2018 intraductal carcinoma, ER+ AK+ HER 2 - 05/28/2018 Last Documented On 3 10:15AM ; [facility] Family history of diabetes m ellitus paternal grandparents ~sister during 05/27/2017 Last Documented On 3 10:15AM ; [facility] Review of Systems Includes: Review of Systems [...] - ESTABLISHED PT BAN WILKES RN [facility] 08/16/19 23 10:17AM 11:19AM Normal Female Exam,Screen Malignant Neoplasm Cervix Insurance Includes: Active Insurance Policies Plan Name Member ID Group # Subscriber Relationship Effect shreyas Dates 1 - [facility] [id number] DAYA WHITE Self Clinical Notes Includes: Clinical Notes from this encounter * Progress note Date Encounter Last Documented by 08/15/2022 WE[facility] WOMAN - ESTABLISHED PT Last documented on 08/15/2022; 12:01 PM, BAN WILKES RN [facility] ; [facility] Active Problems & Conditions - N93.8 - [...] Pt. PCP instructed her to contact her TOLL GATE KEEPER when she was in their office 05/16. 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 Tobacco use: Former smoker, current nonsmoker, and [...] in 50's dx. 2018 intraductal carcinoma, ER+ AK+ HER 2 - Review Of Systems Systemic: [...] vitamin D Plan StartCited - Encntr for pure pak machine operator exam (general) (routine) w/o abn findings Lab: PAP SMEAR & HPV ([facility] # [id number]) EndCited StartCited - Encntr screen mammogram for [...] 1 yr and release for radiology records [facility] 03/[address] [facility] ORDER/COMMENT radiology [facility] 02/21/22 and release for [facility] lipid serology [...]
--- OUTSIDE RECORDS SUMMARY | 2024-03-30 14:47 | XMS_ITS | Patient Health Summary ---
Author Organization [facility] Address [address] [place] [address] Care Team Providers Care Director Business Intelligence Name Role Phone Dominik Haynes MD Primary Care Provider [phone] Note from [facility],non-owned Affiliates and Associated Physician Practices is amultiple site organization consisting of ambulatory clinics and hospital sitesin [place], [place]. This disclosure is being madepursuant to the Care Everywhere program and may not contain all information available regarding this patient. Last updated 17.[facility] Allergies No known active allergies Immunizations * INFLUENZA VACCINE, QUADR. (FLUZONE; FLULAVAL; FLUARIX; AFLURIA QUADRIVALENT; 6MO+), 0.5 ML (IIV4)(Given 01/02/2018) Social History Tobacco Use Types Packs/Day Years Used Date Smoking Tobacco: Never Assessed Sex and Gender Information Value Date Recorded Sex Assigned at Not on file Gender Identity Not on file Sexual Orientation Not on file Care Teams Director Business Intelligence Relationship Specialty Start Date End Date Dominik Haynes MD [facility] [address], [phone] PCP - General 01/30/21
--- OUTSIDE RECORDS SUMMARY | 2024-03-30 14:47 | XMS_ITS | Clinical Summary ---
Author Organization [facility] Address [address] [place] [address] Care Team Providers Care Clerk Cashier Name Role Phone Dominik Haynes MD Primary Care Provider [phone] Source Comments [facility],non-owned Affiliates and Associated Physician Practices is amultiple site organization consisting of ambulatory clinics and hospital sitesin [place], [place], [place] and [place]. This disclosure is being madepursuant to the Care Everywhere program and may not contain all information available regarding this patient. Last updated 17.[facility] [employer] Allergies No known active allergies Immunizations Name Administration Dates Next Due INFLUENZA VACCINE, QUADR. (F LUZONE; FLULAVAL; FLUARIX; AFLURIA QUADRIVALENT; 6MO+), 0.5 ML (IIV4) 01/02/2018 Social History Tobacco Use Types Packs/Day Years Used Date Smoking Tobacco: Never Assessed Sex and Gender Information Value Date Recorded Sex Assigned at Not on file Gender Identity Not on file Sexual Orientation Not on file Plan of Treatment Health Maintenance Due Date Last Done Comments LIPID TESTING 1980 MAMMOGRAM 1980 PAP SMEAR 1980 HIV SCREENING 08/01/1995 HEPATITIS C SCREENING 07/27/1998 DTAP/TDAP/TD VACCINES (1 - Tdap) 08/01/1999 HEPATITIS B VACCINE (1 of 3 - 19+ 3-dose series) 08/01/1999 COVID-19 VACCINE (2023-2 5 season) 2023 INFLUENZA VACCINE (#1) 2023 01/02/2018 DEPRESSION SCREENING 02/25/2024 ZOSTER VACCINE (1 of 2) 2030 HIB VACCINE Aged Out No longer eligi ble based on patient's age to complete this topic HPV VACCINE Aged Out No longer eligi ble based on patient's age to complete this topic MENINGOCOCCAL (Group B) VACCINE Aged Out No longer eligible based on patient's age to complete this topic MENINGOCOCCAL VACCINE Aged Out No chris damien eligible based on patient's age to complete this topic PNEUMOCOCCAL VACCINE Aged Out No long er eligible based on patient's age to complete this topic Care Teams Clerk Cashier Relationship Specialty Start Date End Date Dominik Haynes MD [address], [phone] PCP - General 01/30/21
--- OUTSIDE RECORDS SUMMARY | 2024-03-30 14:47 | XMS_ITS | Referral Summary ---
Author Organization [facility] Address [address] [place] [address] Care Team Providers Care Cooker Pie Filling Name Role Phone Dominik Haynes MD Primary Care Provider [phone] Source Comments [facility],non-owned Affiliates and Associated Physician Practices is amultiple site organization consisting of ambulatory clinics and hospital sitesin [place], [place], [place] and [place]. This disclosure is being madepursuant to the Care Everywhere program and may not contain all information available regarding this patient. Last updated 17.[facility] [employer] Allergies No known active allergies Immunizations Name [...] Orientation Not on file Plan of Treatment Not on file Care Teams Cooker Pie Filling Relationship Specialty Start Date End Date Dominik Haynes MD [address] [place] [address], [phone] PCP - General 01/30/21
--- OUTSIDE RECORDS SUMMARY | 2024-03-30 14:47 | XMS_ITS | Clinical Summary ---
Author Organization [facility] Address [address] [place] [address] Care Team Providers Care Payroll Accounting Specialist Name Role Phone Gurjit Justice MD Primary Care Provider [phone] Allergies No known active allergies Medications sertraline (ZOLOFT) 25 MG tablet Take 1 tablet (25 mg total) by mouth daily. Active HYDROcodone-johnny taminophen (NORCO) 5-325 MG tabletIndicatio ns:Acute Pain < 7 Day Supply Take 1 tablet by mouth every 6 (six) hours as needed. Indications : Acute Pain < 7 Day Supply 21 tablet 03/14/2024 Active amoxicillin-cla vulanate (AUGMENTIN) 875-125 MG tablet Take 1 tablet (875 mg total) by mouth 2 (two) times daily for 10 days. 20 tablet 03/14/2024 Encounters Date Type Department Care Team Description 03/14/2024 12:29 AM SUPERVISOR KNITTING - 03/14/2024 3:48 AM [facility] [id number] [place] [address] Efra Calloway MD Animal Bite (Dog) Discharge Disposition: Home or Self Care (Routine Discharge) 03/14/2024 Travel from Last 3 Months Social History Tobacco Use Types Packs/Day Years Used Date Smoking Tobacco: Never Passive Smoke Exposure: Never Smokeless Tobacco: Never Tobacco Cessation:Counseling Given: Not Answered Alcohol Use Standard Drinks/Week Comments Never 0 (1 standard drink = 0.6 oz pur e alcohol) Comments Unknown Sex and Gender Information Value Date Recorded Sex Assigned at Female 03/14/2024 12:14 AM SUPERVISOR KNITTING Legal Sex Female 10:22 PM SUPERVISOR KNITTING Gender Identity Not on file Sexual Orientation Not on file Last Filed Vital Signs Vital Sign Reading Time Taken Comments Blood Pressure 112/66 03/14/2024 12:42 AM SUPERVISOR KNITTING Pulse 55 03/14/2024 12:42 AM SUPERVISOR KNITTING Temperature 36.4 ??C (97.6 ??F) 03/14/2024 12:[address] Respiratory Rate 17 03/14/2024 12:42 AM SUPERVISOR KNITTING Oxygen Saturation 99% 03/14/2024 12:42 AM SUPERVISOR KNITTING Inhaled Oxygen Concentration - - Weight 72.6 kg (160 lb) 03/14/2024 12:42 AM SUPERVISOR KNITTING Height 154.9 cm (5' 1 ) 03/14/2024 12:42 AM SUPERVISOR KNITTING Body Mass Index 30.23 03/14/2024 12:42 AM SUPERVISOR KNITTING Plan of Treatment Health Maintenance Due Date Last Done Comments Cervical Cancer Screening Pa p Smear (Age 30 to 64) Every 3 Years 1980 Annual Physical 08/01/1983 Hepatitis C 1998 Hepatitis B Vaccines (1 of 3 - 19+ 3-dose series) 08/01/1999 Cervical Cancer Screening Pa p with HPV Testing (Age 30 to 64) Every 5 Years 2010 Cervical Cancer Screening wi th HPV 2010 Mammogram Screening 09/14/2023 09/13/2021, 08/17/2020, 06/02/2018 COVID-19 Vaccine (2023-2 5 season) 2023 03/16/2021, 07/06/2020, 06/10/2020 Influenza Adult (#1) 2023 01/25/2021, 01/02/2018 DTaP, Tdap and Td Vaccines ( 2 - Td or Tdap) 2030 2020 HPV Vaccines Aged Out No longer eligi ble based on patient's age to complete this topic Meningococcal B Vaccine Aged Out No l onger eligible based on patient's age to complete this topic Meningococcal Vaccine Aged Out No chris damien eligible based on patient's age to complete this topic Pneumococcal Vaccine: Pediatrics (0 to 5 Years) and At-Risk Patients (6 to 64 Years) Aged Out No longer eligible b ased on patient's age to complete this topic RSV Immunizations Under 20 Months Aged Out No longer eligible b ased on patient's age to complete this topic Procedures Procedure Name Priority Date/Time Associated Diagnosis Comments LACERATION REPAIR Routine 03/14/2024 2:4 5 AM SUPERVISOR KNITTING XR ELBOW RT M3V STAT 03/14/2024 1:41 AM SUPERVISOR KNITTING from Last 3 Months Results * Lac Repair (03/14/2024 2:45 AM SUPERVISOR KNITTING) Narrative Efra Calloway MD - 03/14/2024 2:45 AM SUPERVISOR KNITTING Efra Calloway MD ? 03/14/2024 ??2:55 AM Lac Repair Date/Time: 03/14/2024 2:45 AM Performed by: Efra Calloway MD Authorized by: Efra Calloway MD ?? Consent: ??Consent obtained: ??Verbal ??Consent given by: ??Patient ??Risks, benefits, and alternatives were discussed: yes ?Risks discussed: ??Pain, poor cosmetic result, tendon damage, vascular damage, poor wound healing and nerve damage ??Alternatives discussed: ??No treatment and observation Burdett protocol: ??Procedure explained and questions answered to patient or proxy's satisfaction: yes ?Relevant documents present and verified: yes ?Test results available: no ?Imaging studies available: yes ?Site/side marked: yes ?Immediately prior to procedure, a time out was called: yes ?Patient identity confirmed: ??Verbally with patient and arm band Anesthesia: ??Anesthesia method: ??Local infiltration ??Local anesthetic: ??Lidocaine 1% w/o epi Laceration details: ??Location: ??Shoulder/arm ??Shoulder/arm location: ??R elbow ??Length (cm): ??3.5 Pre-procedure details: ??Preparation: ??Patient was prepped and draped in usual sterile fashion and imaging obtained to evaluate for foreign bodies Exploration: ??Limited defect created (wound extended): no ?Hemostasis achieved with: ??Direct pressure ??Imaging outcome: foreign body not noted ?Wound exploration: wound explored through full range of motion and entire depth of wound visualized ?Wound extent: no areolar tissue violation noted, no fascia violation noted, no foreign bodies/material noted, no muscle damage noted, no nerve damage noted, no tendon damage noted, no underlying fracture noted and no vascular damage noted ?Contaminated: yes ?? Treatment: ??Area cleansed with: ??Saline and Shur-Clens ??Amount of cleaning: ??Extensive ??Irrigation solution: ??Sterile saline ??Irrigation volume: ??1 L ??Irrigation method: ??Pressure wash ??Visualized foreign bodies/material removed: no ?Debridement: ??Minimal ??Undermining: ??None ??Scar revision: no ?? Skin repair: ??Repair method: ??Sutures ??Suture size: ??5-0 ??Suture material: ??Prolene ??Suture technique: ??Simple interrupted ??Number of sutures: ??7 Approximation: ??Approximation: ??Loose Repair type: ??Repair type: ??Simple Post-procedure details: ??Dressing: ??Antibiotic ointment and sterile dressing ??Procedure completion: ??Tolerated Efra Calloway MD PROCEDURE/MINOR SURGICAL ORDERA BLES Final Result * XR ELBOW RT M3V (03/14/2024 1:41 AM SUPERVISOR KNITTING) Anatomical Region Laterality Modality Elbow Radiographic Renita ging 03/14/2024 1:52 AM SUPERVISOR KNITTING Impressions 03/14/2024 1:53 AM SUPERVISOR KNITTING IMPRESSION: 1. ??SOFT TISSUE SWELLING AND SOFT TISSUE GAS MEDIALLY CONSISTENT WITH HISTORY OF DOG BITE. ??NO EVIDENCE OF RETAINED RADIOPAQUE FOREIGN BODY. 2. ??NO EVIDENCE OF ACUTE OSSEOUS ABNORMALITY. Signed: Sammy Daniels MD Referred By: ?? Interpreted By: Sammy Daniels MD, 03/14/2024 1:52 AM Narrative 03/14/2024 1:53 AM SUPERVISOR KNITTING [facility] [address] [place] [address] PATIENT NAME: ENEDINA WHITE EXAM: Right elbow 3 view DATE OF EXAM: 03/14/2024 COMPARISON EXAM: None INDICATION: Dog bite TECHNIQUE: AP, lateral and oblique right elbow FINDINGS: Diffuse soft tissue swelling and subcutaneous edema. ??There appears to BE a small amount of soft tissue gas medially. ??There is no evidence of radiopaque foreign body. ??There is no acute osseous abnormality. Procedure Note Sammy Daniels MD - 03/14/2024 [facility] [address] [place] [address] PATIENT NAME: ENEDINA WHITE EXAM: Right elbow 3 view DATE OF EXAM: 03/14/2024 COMPARISON EXAM: None INDICATION: Dog bite TECHNIQUE: AP, lateral and oblique right elbow FINDINGS: Diffuse soft tissue swelling and subcutaneous edema. Thereappears to BE a small amount of soft tissue gas medially. There is noevidence of radiopaque foreign body. There is no acute osseousabnormality. IMPRESSION: 1. SOFT TISSUE SWELLING AND SOFT TISSUE GAS MEDIALLY CONSISTENT WITHHISTORY OF DOG BITE. NO EVIDENCE OF RETAINED RADIOPAQUE FOREIGN BODY. 2. NO EVIDENCE OF ACUTE OSSEOUS ABNORMALITY. Signed: Sammy Daniels MD Referred By: Interpreted By: Sammy Daniels MD, 03/14/2024 1:52 AM Efra Calloway MD GENERAL IMAGING Final Result from Last 3 Months Insurance [facility] Care Teams Payroll Accounting Specialist Relationship Specialty Start Date End Date Gurjit Justice MD [facility] [address] [address] [place] [address] [id number] PCP - General FAMILY PRACTICE 03/14/24
--- OUTSIDE RECORDS SUMMARY | 2024-03-30 14:47 | XMS_ITS | Clinical Summary ---
Author Organization [facility] Care Team Providers Care Increment Manager Name Role Phone Annette Justice MD Primary Care Provider + Amanda Ann MD Unavailable [phone] Allergies No known active allergies Medications ibuprofen [...] Breast cancer screening, high risk patient 12/09 Encounters Date Type Department Care Team Description 01/14/2024 Orders Only [facility] Phys[facility] Oncology [address] [place] [address] [place] [phone] Provider, MD Donn from Last 3 Months Surgical History Surgery Date Site/Laterality Comments ADRENALECTOMY TUBAL LIGATION 02/24/2002 - 02/23/2003 APPENDECTOMY 02/25/2020 - 02/23/2021 Medical History Medical History Date Comments MRSA (methicillin resistant Staphylococcus aureu s) Family History Medical History Relation Name Comments No Known Problems Father's Sister Uterine cancer Maternal Grandmother Breast cancer Mother Adrienne Dangelo Cancer Other 1 Diabetes Other 1 Heart disease Other 1 Hypertension Other 1 Prostate cancer Other 2 paternal uncle two patern al uncles Prostate cancer Other 3 maternal uncle Lung cancer Paternal Grandmother Relation Name Status Comments Father's Sister Maternal Grandmother Mother Adrienne Dangelo Alive Other 1 Other 2 paternal uncle Alive Other 3 maternal uncle Alive Paternal Grandmother Social History Tobacco Use Types Packs/Day Years [...] 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 Not on file Not on file Obstetrics History Para Term AB IAB SAB Ectopic Multiple Livin g Live Births 2 2 2 Date Outcome GA Total Labor Labor/2nd/3rd Weight Sex Type Anes PTL Vi A1 A5 Name Clin Term Term Last Filed Vital Signs Vital Sign Reading [...] 12/10/2023 8:08 AM CDT Plan of Treatment Health Maintenance Due Date Last Done Comments Cervical Cancer Screening 1980 Depression Screening 1980 Hepatitis C Screening 1980 Varicella Vaccines (1 of 2 - 13+ 2-dose series) 1993 Hepatitis B Screening 1998 Regular Well Visit/Exam 18-64 1998 Influenza Vaccine (#1) 2023 01/02/2018 Breast Cancer Screening-Mammogram 11/27/2024 11/28/2023, 09/13/2021, 08/17/2020, Additional history exists DTaP/Tdap/Td Vaccine (2 - Td or Tdap) 2030 2020 HPV Vaccines Aged Out No longer eligi ble based on patient's age to complete this topic Pneumococcal vaccine <65 Aged Out No longer eligible based on patient's age to complete this topic Procedures Procedure Name Priority Date/Time Associated Diagnosis Comments SCREENING MAMMOGRAM Schedule Routine, Read Routine (OP Routine) 11/28/2023 4:15 PM CDT from Last 3 Months or Most Recently Relevant to Health Maintenance Results * Screening Mammogram (11/28/2023 4:15 PM CDT) Anatomical Region Laterality Modality Breast N/A Mammography Historical Provider MD ANNE MAMMO PROCEDURES Savi l Result from Last 3 Months or Most Recently Relevant to Health Maintenance Insurance [place] ACCESS OOS [facility] CHOICE PLUS [facility] CHOICE PLUS Care Teams Increment Manager Relationship Specialty Start Date End Date Annette Justice MD PCP - General 07/21/20 Amanda Ann MD [address] [place] [address] Referring Physician Obstetrics and Gynecology 09/25/23
--- OUTSIDE RECORDS SUMMARY | 2024-03-30 14:48 | XMS_ITS ---
Care Plan - [facility] Created on: March 30, 2024 DAYA WHITE : 1980 Sex: Female Author Organization [facility] Address [address] [place] [address] Phone Care Team Providers Care Muffler Hand Name Role Phone SHWETA SCOTT, RAY C Unavailable [phone] SHY VELIZ MD Primary Care Provider [phone]
[2024-03-30 16:51] LABS: Basophils Percent Auto 0.5 % (0.2-1.2); Eosinophils Absolute Auto 0.1 K/mm3 (0-0.3); Eosinophils Percent Auto 1.2 % (0-4.4); Hematocrit 41.4 % (37.0-47.0); Hemoglobin 13.9 g/dL (12.0-15.0); Immature Granulocyte Absolute 0.01 K/mm3 (0.00-0.031); Immature Granulocyte Percent A 0.1 % (0-0.5); Lymphocytes Absolute Auto 2.61 K/mm3 (0.9-3.2); Lymphocytes Percent Auto 34.4 % (18.3-44.2); Mean Corpuscular HGB Conc 33.6 g/dl (32-36); Mean Corpuscular Hemoglobin 30.8 pg (26-34); Mean Corpuscular Volume 91.8 fl (80-100); Mean Platelet Volume 11.6 fl (7.4-10.4); Monocytes Absolute Auto 0.6 K/mm3 (0.1-0.6); Monocytes Percent Auto 8.3 % (2.6-8.5); Neutrophils Absolute Auto 4.2 K/mm3 (1.3-6.7); Neutrophils Percent Auto 55.5 % (45.5-73.1); Platelet Count Result 242 k/mm3 (150-375); Red Blood Count 4.51 M/mm3 (4.2-5.4); Red Cell Distribution Width 11.4 % (11.5-14.5); White Blood Count 7.6 K/mm3 (4.5-10.0)
[2024-03-30 18:40] LABS: Alanine Aminotransferase 27 U/L (6-35); Albumin Level 4.6 g/dL (3.5-5.1); Alkaline Phosphatase 52 U/L (38-126); Aspartate Amino Transferase 80 U/L (14-36); Bilirubin,Total 0.7 mg/dL (0.2-1.3)
== END 2024-03-30 14:43 | disposition home or self-care (01) ==
LOC: ANHGOSHLAB 14:43
PROVIDERS: PCP Family Medicine; Visit Provider Family Medicine
DX: R94.5 Abnormal results of liver function studies (principal); D70.9 Neutropenia, unspecified
CPT/HCPCS: 36415; 80076; 85025

== ENCOUNTER 2024-05-04 08:26 | Outpatient (CLI) | payer OTHER, SELFPAY ==
--- NOTE | ~2024-05-04 | US_ITS ---
Limited ABDOMINAL ULTRASOUND (Doppler ultrasound interrogation techniques used as needed for this exa m.) Ordering provider: Annette Justice MD History: . R79.89 - Other specified abnormal findings of blood chemi... . Comparison: None. FINDINGS: PANCREAS: Tail is obscured. Otherwise, Normal echotexture and size. PORTAL VEIN: Hepatopedal flow demonstrated. LIVER: Normal size and echotexture. No focal hepatic lesions or perihepatic fluid collections are marlin ntified. BILIARY DUCTS: No intra or extrahepatic biliary dilation. Common bile duct measures 3 mm in diameter which is normal for patient's age. GALLBLADDER: Normal. No stones, sludge, gallbladder wall thickening or pericholecystic fluid. Negati ve sonographic Harvey's sign. FREE FLUID: None visualized within the upper abdomen. IMPRESSION: normal limited abdominal ultrasound. Reviewed, dictated and finalized at location A.
== END 2024-05-04 08:27 | disposition home or self-care (01) ==
PROVIDERS: PCP Family Medicine; Visit Provider Family Medicine
DX: R79.89 Other specified abnormal findings of blood chemistry (principal)
CPT/HCPCS: 76705

== ENCOUNTER 2024-07-15 13:51 | Outpatient (CLI) | payer OTHER, SELFPAY ==
--- OUTSIDE RECORDS SUMMARY | 2024-07-15 13:57 | XMS_ITS | Clinical Summary ---
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 Not [...] 69 12/10/2023 8:08 AM CDT Temperature 36.9 C (98.4 F) 12/10/2023 8:08 AM CDT Respiratory Rate 18 12/10/2023 8:08 AM CDT [...] Regular Well Visit/Exam 18-64 1998 Influenza Vaccine (Season Ended) 2024 01/02/2018 Breast Cancer Screening-Mammogram 11/27/2024 11/28/2023, 09/13/2021, [...] Modality Breast N/A Mammography us Historical Provider IMTeto MAMMO PROCEDURES Savi l Result from Last 3 Months or Most Recently Relevant to Health Maintenance Insurance [place] ACCESS OOS [facility] CHOICE PLUS [facility] HMO/PPO Address: [facility] [address] [place] [address] [facility] CHOICE PLUS [facility] HMO/PPO Address: [address] [address] [place] [address] Care Teams Station Installation Supervisor Relationship Specialty Start Date End Date Annette Justice MD PCP - General 07/21/20 Amanda Ann MD [address] [place] [address] Referring Physician Obstetrics and Gynecology 09/25/23
--- OUTSIDE RECORDS SUMMARY | 2024-07-15 13:57 | XMS_ITS | Clinical Summary ---
Author Organization [facility] Address [address] [place] [address] Care Team Providers Care Artist And Repertoire Manager Name Role Phone Dominik Haynes MD Primary Care Provider [phone] Source Comments [facility],non-owned Affiliates and Associated Physician Practices is amultiple site organization consisting of ambulatory clinics and hospital sitesin [place], [place], [place] and [place]. This disclosure is being madepursuant to the Care Everywhere program and may not contain all information available regarding this patient. Last updated 17.[facility] [employer] Allergies No known active allergies Immunizations Immunization Administration Dates Next Due INFLUENZA VACCINE, QUADR. (F LUZONE; FLULAVAL; FLUARIX; AFLURIA QUADRIVALENT; 6MO+), 0.5 ML (IIV4) 01/02/2018 Social History Tobacco Use Types Packs/Day Years Used Date Smoking Tobacco: Never Assessed Comments Unknown Sex and Gender Information Value Date Recorded Sex Assigned at Not on file Legal Sex Female 12:53 PM FOOD AND DRUG INSPECTOR Gender Identity Not on file Sexual Orientation Not on file Plan of Treatment Health Maintenance Due Date Last Done Comments LIPID TESTING 1980 MAMMOGRAM 1980 HIV SCREENING 08/01/1995 HEPATITIS C SCREENING 07/27/1998 DTAP/TDAP/TD VACCINES (1 - Tdap) 08/01/1999 HEPATITIS B VACCINE (1 of 3 - 19+ 3-dose series) 08/01/1999 COVID-19 VACCINE ( - 2023-2 5 season) 2023 DEPRESSION SCREENING 02/25/2024 INFLUENZA VACCINE (Season Ended) 2024 01/03/20 18 ZOSTER VACCINE (1 of 2) 2030 HIB VACCINE Aged Out No longer eligi ble based on patient's age to complete this topic HPV VACCINE Aged Out No longer eligi ble based on patient's age to complete this topic MENINGOCOCCAL (Group B) VACC INE SHARED DECISION-MAKING Aged Out No longer eligibl e based on patient's age to complete this topic MENINGOCOCCAL GROUPS A/C/Y/W VACCINE Aged Out No longer eligible b ased on patient's age to complete this topic PNEUMOCOCCAL VACCINE Aged Out No long er eligible based on patient's age to complete this topic Insurance [facility] [place] [address] [facility] Care Teams Artist And Repertoire Manager Relationship Specialty Start Date End Date Dominik Haynes MD PCP - General 01/30/21
--- OUTSIDE RECORDS SUMMARY | 2024-07-15 13:57 | XMS_ITS | Referral Summary ---
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
[2024-07-15 19:13] LABS: Alanine Aminotransferase 50 U/L (6-35); Albumin Level 4.6 g/dL (3.5-5.1); Alkaline Phosphatase 48 U/L (38-126); Aspartate Amino Transferase 71 U/L (14-36); Bilirubin,Total 0.6 mg/dL (0.2-1.3)
[2024-07-15 19:58] LABS: Hepatitis B Surface Antigen Negative (Negative)
[2024-07-15 20:03] LABS: HAV RESULT Negative (Negative); Hepatitis B Core IgM Result Negative (Negative)
[2024-07-15 20:15] LABS: Hepatitis C Virus Antibody Negative (Negative)
== END 2024-07-15 13:52 | disposition home or self-care (01) ==
LOC: ANHGOSHLAB 13:53
PROVIDERS: PCP Family Medicine; Visit Provider Family Medicine
DX: R79.89 Other specified abnormal findings of blood chemistry (principal)
CPT/HCPCS: 36415; 80074; 80076

== ENCOUNTER 2024-07-22 16:39 | Outpatient (CLI) | payer OTHER, SELFPAY ==
--- OUTSIDE RECORDS SUMMARY | 2024-07-22 16:43 | XMS_ITS | Continuity of Care Document ---
Author Organization [facility] Address [address] [place] [address] Phone Care Team Providers Care Director Patient Accounting Name Role Phone Kyle PT,MPT,ATC, Sukh Unavailable Unavai lable Procedures Procedure Date Therapeutic Activities Therapeutic Activities Neuromuscular Re-Ed Therapeutic Exercise VGA-Individual Onsite Eval Therapeutic Activities Therapeutic Exercise Neuromuscular Re-Ed Therapeutic Activities Neuromuscular Re-Ed Therapeutic Exercise Therapeutic Activities Neuromuscular Re-Ed Therapeutic Exercise Therapeutic Activities Neuromuscular Re-Ed Therapeutic Exercise Therapeutic Activities Neuromuscular Re-Ed Therapeutic Exercise Manual Therapy PT Evaluation Moderate Complexity Therapeutic Activities Neuromuscular Re-Ed Manual Therapy Advance Directives Directive Yes / No Effective Date File Name No Information Encounters Encounter Description Practice Location Reason(s) For Visit Diagnoses Date Provider Providers Copied on Encounter [facility], [address], [place], [place], [id number], tel:[phone] [place] No Information 9 Kyle Tripp , [place], [place]. [facility], [address], [place], [place], [id number], tel:[phone] [place] No Information 9 [facility], [place], [place]. [facility], [address], [place], [place], [id number], tel:[phone] [place] No Information 9 [facility], [place], . [facility], [address], [place], [place], [id number], tel:[phone] [place] No Information 9 [place], [place]. [facility], [address], [place], [place], [id number], tel:[phone] [place] No Information 9 [place], . [facility], [address], [place], [place], [id number], [place] tel:[phone] [place] No Information 9 [place], . [facility], [address], [place], [place], [id number], [place] tel:[phone] [place] No Information 9 [place], . [facility], [address], [place], [place], [id number], tel:[phone] [place] No Information 9 [place], [place], [place]. Family History Family Member Type Diagnosis Age At Onset No Information Payers Payer name Insurance type Covered green party ID Authoroumarelsie tawnybean(s) [facility] [id number] Social History Type Description Quantity Date Captured Comments Sex Female Smoking Status No Information Chief Complaint And Reason For Visit No Information Reason For Referral Reason For Referral No Information History Of Present Illness Encounter Date Complaint History Of Prese nt Illness No Information Functional Status Date Functional Assessmen t No Information Instructions Date Instruction Additional Infor mation No Information Assessments Type Assessment Date No Information Patient Care Teams Name Effective Dates (start - stop) Status Members No Information
--- OUTSIDE RECORDS SUMMARY | 2024-07-22 16:43 | XMS_ITS | Clinical Summary ---
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
--- OUTSIDE RECORDS SUMMARY | 2024-07-22 16:43 | XMS_ITS | Clinical Summary ---
Author Organization [facility] Address [address] [facility] [place] [address] Care Team Providers Care Archivist Nonprofit Foundation Name Role Phone Dominik Haynes MD Primary Care Provider [phone] Source Comments [facility],non-owned Affiliates and Associated Physician Practices is amultiple site organization consisting of ambulatory clinics and hospital sitesin [place], [place], [place] and [place]. This disclosure is being madepursuant to the Care Everywhere program and may not contain all information available regarding this patient. Last updated 17.[facility] [email or web address] Allergies No known active allergies Immunizations Immunization Administration Dates Next Due INFLUENZA VACCINE, QUADR. 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
--- OUTSIDE RECORDS SUMMARY | 2024-07-22 16:43 | XMS_ITS | Referral Summary ---
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
--- OUTSIDE RECORDS SUMMARY | 2024-07-22 16:44 | XMS_ITS | Continuity of Care Document ---
Author Organization [facility] Address [address] [place] [address] Phone Care Team Providers Care Building Rigger Name Role Phone Fatmata Aguiar Unavailable Unavailab le Allergies, Adverse Reactions, Alerts Substance Reaction Status Criticality No Known Drug Allergies Other Active No I nformation Advance Directives Directive Yes / No Effective Date File Name No Information Encounters Encounter Description Practice Location Reason(s) For Visit Diagnoses Date Provider Providers Copied on Encounter [facility], [address], [place], [place], [address] , tel: [phone] [place] No Information 8 Guillermo Avilez. [address] [address], [place], [place], [address], [place]. tel:[phone] [facility], [address], [place], [place], [address] , tel: [phone] [place] .mid-abdom inal pain (chief complaint) Body mass index (BMI) 25.0-25.9, adultRight upper quadrant abdominal painScreening for lipoid disordersThyroid disorder screening Guillermo Avilez. [address], [facility] [address], [place], [place], [address], [place]. tel:[phone] Referring Provider: Boaz Haynes, [address] [facility] [address], [place], [address] . tel:[phone] [facility], [address], [place], [place], [address] , tel:[phone] [place] Acute sinusitis, recurrence not specified, unspecified location 7 Ivy Sandra. [address] [place] [address], [address], [place], [place], [address], [place]. [phone] Referring Provider: Boaz Haynes, [address] [place] [address] [address], [place], [address] . tel:[phone] [facility], [address], [place], [place], [address] , [place] tel: [phone] [place] Cervical strain, acute, subsequent encounterMuscle tension headacheContusion of left knee, subsequent encounterContusio n of left shoulder, subsequent encounterMotor vehicle accident, subsequent encounter 7 Rimma Amaton. [facility] [address], [address], [place], [place], [address]. tel:[phone] Referring Provider: Boaz Haynes, [address] [place] [address] [address], [place], [address] . tel:[phone] [facility], [address], [place], [place], [address] , [place] tel: [phone] [place] Cervical strain, acute, subsequent encounterMuscle tension headacheContusion of left shoulder, subsequent encounterContusio n of left knee, subsequent encounterMotor vehicle accident, subsequent encounter 6 Rimma Amaton. [facility] [address], [facility] [address], [place], [place], [address]. tel:[phone] Referring Provider: Boaz Haynes, [address] [place] [address] [address], [place], [address] . tel:[phone] [facility], [address], [place], [place], [address] , [place] tel:[phone] [place] ADD (attention deficit disorder)Medicati on management Oct- 6 Ivy Sandra. [facility] [address], [facility] [address], [place], [place], [address], [place]. tel:[phone] Referring Provider: Boaz Haynes, [address] [place] [address], [place], [address] . tel:[phone] [facility], [address], [place], [place], [address] , tel:[phone] [place] Nasal abscess 6 Jose Loza. [address] [place] [address], [address], [place], [place], [address]. tel:[phone] Referring Provider: Boaz Haynes, [address] [place] [address] [address], [place], [address] . tel:[phone] [facility], [address], [place], [place], [address] , [place] tel:[phone] [place] Right foot painMass of right side of neckScreening, lipidScreening for thyroid disorderEncounter for current long-term use of anticoagulants 5 Ivy Sandra. [address] [place] [address], [facility] [address], [place], [place], [address], [place]. tel:[phone] Referring Provider: Boaz Haynes, [address] [place] [address] [address], [place], [address] . tel:[phone] [facility], [address], [place], [place], [address] , [place] tel:[phone] [place] Hematuria 2 Rimma Amaton. [facility] [address], [address], [place], [place], [address]. tel:[phone] Referring Provider: Boaz Haynes, [address] [place] [address], [place], [address] . tel:[phone] [facility], [address], [place], [place], [address] , [place] tel:[phone] [place] OverweightDepress shreyas disorder, not elsewhere classifiedSPECIAL SCREENING FOR MALIGNANT NEOPLASMS, OTHER SITESLow back strainAbnormal urine finding 2 Rimma Naik. [facility] [address], [address], [place], [place], [address]. tel:[phone] Referring Provider: Boaz Haynes, [address] [place] [address], [place], [address] . tel:[phone] [facility], [address], [place], [place], [address] , [place] tel: [phone] [place] AC LARYNGITIS W/O OBSTTOBACCO USE DISORDER 7201 0 Ivy Sandra. [address], [address], [place], [place], [address], [place]. tel:[phone] [facility], [address], [place], [place], [address] , [place] tel: [phone] [place] ACUTE BRONCHITIS 9 Conversion Doctor. [address] [facility], [place], [address], [place]. [facility], [address], [place], [place], [address] , tel: [phone] [place] NAUSEA WITH VOMITING 9 Rimma Naik. [address], [address] [address], [place], [place], [address]. tel:[phone] [facility], [address], [place], [place], [address] , [place] tel:[phone] [place] ACUTE SINUSITIS NOSACUTE PHARYNGITIS 9 Ivy Sandra. [address], [address], [place], [place], [address], [place]. tel:[phone] [facility], [address], [place], [place], [address] , tel: [phone] [place] STREP SORE THROAT 0200 7 Ivy Sandra. [address], [address], [place], [place], [address], [place]. tel:[phone] [facility], [address], [place], [address] , [place] tel: [phone] [place] ACUTE LYMPHADENITIS 9200 7 Rimma Naik. [address], [address] [address], [place], [place], [address]. tel:[phone] [facility], [address], [place], [place], [address] , [place] tel: [phone] [place] INSECT BITE NEC-INFECTED 200 7 Ivyjeniffer Sandra. [facility], [address], [place], [place], [address], [place]. tel:[phone] [facility], [address], [place], [place], [address] , [place] tel: [phone] [place] IMPACTED CERUMEN 0200 7 Ivy Sandra. [address] [place] [address], [address], [place], [place], [address], [place]. tel:[phone] [facility], [address], [place], [place], [address] , [place] tel: [phone] [place] LOCALIZED ADIPOSITYBACKACHE NOS 200 6 Ivy Sandra. [address] [place] [address], [address], [place], [place], [address], [place]. tel:[phone] [facility], [address], [place], [place], [address] , [place] tel: [phone] [place] No Information Nov-0 2-200 4 Gakes Heena. [address] [place] [address], [address], [place], [place], [address]. tel:[phone] [facility], [address], [place], [place], [address] , [place] tel: [phone] [place] SCREEN LIPOID DISORDERSMALAISE AND FATIGUE NECDEPRESSIVE DISORDER NEC Nov-0 2-200 4 Ivy Sandra. [address] [place] [address], [address], [place], [place], [address], [place]. tel:[phone] [facility], [address], [place], [place], [address] , [place] tel: [phone] [place] JOINT PAIN-SHLDERCERVIC ALGIA 7-200 2 Ivy Sandra. [address] [place] [address], [address], [place], [place], [address], [place]. tel:[phone] [facility], [address], [place], [place], [address] , [place] tel: [phone] [place] SALIVARY GLAND MUCOCELE 1 2 Rimma Naik. [address], [address], [place], [place], [address]. tel:[phone] [facility], [address], [place], [place], [address] , tel: [phone] [place] ACUTE URI NOS Fe200 2 Conversion Doctor. [address] [facility], [place], [address], . [facility], [address], [place], [place], [address] , tel: [phone] [place] ACUTE TONSILLITIS 0-200 1 Rimma Naik. [address], [address], [place], [place], [address]. [phone] [facility], [address], [place], [place], [address] , tel: [phone] [place] ABDMNAL PAIN UNSPCF SITEDIARRHEA 1 Ivy Sandra. [address], [address], [place], [place], [address], [place]. tel:[phone] Family History Family Member Type Diagnosis Age At Onset Problem (finding) No family hist ory of Colon, breast or ovarian CA PGM Problem (finding) coronary arterioscleros is Dad, PGF, PGM Problem (finding) Diabetes mellitus Payers Payer name Insurance type Covered green party ID Authoriza tion(s) [facility] [id number] Social History Type Description Quantity Date Captured Comments Alcohol Use Details Unknown Caffeine Use Details Unknown Tobacco Use Status No Information Smoking Status No Information Sex Female Sexual Orientation Choose not to disclose Gender Identity Female Chief Complaint And Reason For Visit No Information Reason For Referral Reason For Referral No Information Plan Of Treatment Date Type Action Status Goal Dietary management education , guidance, and counseling completed Referral Ordered: Ultrasound, abdomen, right upper quadrant, with gallbladder views Right abdomen ordered History Of Present Illness Encounter Date Complaint History Of Prese nt Illness .mid-abdominal pain Pt reports o n Friday she was having mid- epigastric pain and then developed right back pain. She reports she has had episodes similar to this over the past 18 months. She reports she took 4 Advil which did seem to help. She does not feel heartburn. She has +nausea, poor appetite. She reports the pain started yesterday after she was eating lunch, but pain does not always seem to be directly related to pain episodes. No fevers, some chills. Bowel movements on Friday were loose, like diarrhea. She reports looser stools the rest of this week as well. The pain is always epigastric, and radiates to the RUQ and the R mid-back. Functional Status Date Functional Assessmen t No Information Instructions Date Instruction Additional Infor betsy Suspect possible gal lbladder etiology - check CBC, CMP today and ordered RUQ ultrasound. Try starting Nexium 20mg daily, provided samples today. Avoid greasy/fatty foods as well as acidic and spicy foods over the next 1-2 weeks and monitor symptoms. If symptoms are severe, go to the ER. With new concerns, call or return to the office. Follow up routinely. Related to Right upper quadrant abdominal pain Dietary management e ducation, guidance, and counseling Related to Body mass index (BMI) 25.0-25.9, adult Medication management Assessments Type Assessment Date No Information Patient Care Teams Name Effective Dates (start - stop) Status Members No Information
[2024-07-26 14:48] LABS: Immunoglobulin A 157 mg/dL (47-310); TTG IGA AB <1.0 U/mL
== END 2024-07-22 16:40 | disposition home or self-care (01) ==
LOC: ANHLAB 16:41
PROVIDERS: PCP Family Medicine; Visit Provider Family Medicine
DX: R79.89 Other specified abnormal findings of blood chemistry (principal)
CPT/HCPCS: 36415; 82784

== ENCOUNTER 2024-08-12 16:21 | Outpatient (CLI) | payer OTHER, SELFPAY ==
--- OUTSIDE RECORDS SUMMARY | 2024-08-12 16:25 | XMS_ITS | Clinical Summary ---
Author Organization [facility] Address [address] [place] [address] Care Team Providers Care Marking Machine Operator Name Role Phone Dominik Haynes MD Primary Care Provider [phone] Source Comments [facility],non-owned Affiliates and Associated Physician Practices is amultiple site organization consisting of ambulatory clinics and hospital sitesin [place], [place], [place] and [place]. This disclosure is being madepursuant to the Care Everywhere program and may not contain all information available regarding this patient. Last updated 17.[facility] [place] [place] Allergies No known active allergies Immunizations Immunization Administration Dates Next Due INFLUENZA VACCINE, QUADR. 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
--- OUTSIDE RECORDS SUMMARY | 2024-08-12 16:25 | XMS_ITS | Clinical Summary ---
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 Not on file Not [...] [place] ACCESS O[place] [facility] CHO[facility] HMO/PPO Address: [facility] [address] [place] [address] [facility] CHOICE PLUS [facility] H[facility]/PPO Address: [address] [address] [place] [address] Care Teams Principal Network Architect Relationship Specialty Start Date End Date Annette Justice MD PCP - General 07/21/20 Amanda Ann MD [address] [place] [address] Referring Physician Obstetrics and Gynecology 09/25/23
--- OUTSIDE RECORDS SUMMARY | 2024-08-12 16:25 | XMS_ITS | Referral Summary ---
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
[2024-08-12 18:19] LABS: Iron 84 ug/dL (37-170)
[2024-08-12 18:29] LABS: Percent Iron Saturation 23 % (20-50)
[2024-08-13 05:23] LABS: GGT 11 U/L (3-55)
[2024-08-16 10:05] LABS: Mitochondrial (M2) Ab (IgG) <20.0 U
[2024-08-18 03:04] LABS: Alpha-1-Antitrypsin, QN 145 mg/dL (83-199); Ceruloplasmin 28 mg/dL (14-48)
[2024-08-18 13:38] LABS: Actin Antibody (IgG) <20 U (<20)
[2024-08-21 01:29] LABS: ALT 41 U/L (6-29); Alpha-2-Macroglobulin 173 mg/dL (106-279); Apolipoprotein A1 182 mg/dL (101-198); Fibrosis Score 0.05; Fibrosis Stage F0; GGT 11 U/L (3-55); Haptoglobin 124 mg/dL (43-212); Necroinflammat Act Grade A0; Reference ID 5560888; Total Bilirubin 0.4 mg/dL (0.2-1.2)
== END 2024-08-12 16:22 | disposition home or self-care (01) ==
LOC: ANHLAB 16:22
PROVIDERS: PCP Family Medicine; Visit Provider Nurse Practitioner Family
DX: R79.89 Other specified abnormal findings of blood chemistry (principal)
CPT/HCPCS: 36415; 81596; 82103; 82390; 82728; 82977; 83520; 83540; 83550; 86038; 86039; 86364

== ENCOUNTER 2024-12-13 16:27 | Outpatient (CLI) | payer OTHER, SELFPAY ==
[2024-12-13 17:10] LABS: Alanine Aminotransferase 18 U/L (6-35); Albumin Level 4.3 g/dL (3.5-5.1); Alkaline Phosphatase 46 U/L (38-126); Aspartate Amino Transferase 31 U/L (14-36); Bilirubin,Total 0.3 mg/dL (0.2-1.3); Total Protein 7.5 g/dL (6.3-8.2)
--- OUTSIDE RECORDS SUMMARY | 2024-12-13 18:48 | XMS_ITS | Clinical Summary ---
Author Organization [facility] Address [address] [place] [address] Care Team Providers Care Machining And Assembly Supervisor Name Role Phone Gurjit Justice MD Primary Care Provider [phone] Allergies No known active allergies Medications sertraline (ZOLOFT) 25 MG tablet Take 1 tablet (25 mg total) by mouth daily. Active HYDROcodone-acet aminophen (NORCO) 5-325 MG tabletIndication s:Acute Pain < 7 Day Supply Take 1 tablet by mouth every 6 (six) hours as needed. Indications : Acute Pain < 7 Day Supply 21 tablet 03/14/2024 Active Social History Tobacco Use Types Packs/Day Years Used Date Smoking Tobacco: Never Passive Smoke Exposure: Never Smokeless Tobacco: Never Tobacco Cessation:Counseling Given: Not Answered Alcohol Use Standard Drinks/Week Comments Never 0 (1 standard drink = 0.6 oz pur e alcohol) Comments Unknown Sex and Gender Information Value Date Recorded Sex Assigned at Female 03/14/2024 12:14 AM CIGAR PACKER AND SORTER Legal Sex Female 10:22 PM CIGAR PACKER [employer] SORTER Gender Identity Not on file Sexual Orientation Not on file Last Filed Vital Signs Vital Sign Reading Time Taken Comments Blood Pressure 112/66 03/14/2024 12:42 AM CIGAR PACKER AND SORTER Pulse 55 03/14/2024 12:42 AM CIGAR PACKER AND SORTER Temperature 36.4 C (97.6 F) 03/14/2024 12:42 AM CIGAR PACKER AND SORTER Respiratory Rate 17 03/14/2024 12:42 AM CIGAR PACKER AND SORTER Oxygen Saturation 99% 03/14/2024 12:42 AM CIGAR PACKER AND SORTER Inhaled Oxygen Concentration - - Weight 72.6 kg (160 lb) 03/14/2024 12:42 AM CIGAR PACKER AND SORTER Height 154.9 cm (5' 1) 03/14/2024 12:42 AM CIGAR PACKER AND SORTER Body Mass Index 30.23 03/14/2024 12:42 AM CIGAR PACKER AND SORTER Plan of Treatment Health Maintenance Due Date Last Done Comments Cervical Cancer Screening Pa p Smear (Age 30 to 64) Every 3 Years 1980 Annual Physical 08/01/1983 Hepatitis C 1998 Hepatitis B Vaccines (1 of 3 - 19+ 3-dose series) 08/01/1999 HPV Vaccines (1 - 3-dose SCD M series) 08/01/2007 Cervical Cancer Screening Pa p with HPV Testing (Age 30 to 64) Every 5 Years 2010 Cervical Cancer Screening wi th HPV 2010 Mammogram Screening 09/14/2023 09/13/2021, 08/17/2020, 06/02/2018 COVID-19 Vaccine ( - 2024-2 6 season) 2024 03/16/2021, 07/06/2020, 06/10/2020 Influenza Adult (#1) 2024 01/25/2021, 01/02/2018 DTaP, Tdap and Td Vaccines ( 2 - Td or Tdap) 2030 2020 Hepatitis A Vaccines Aged Out No long er eligible based on patient's age to complete this topic Meningococcal B Vaccine Aged Out No l onger eligible based on patient's age to complete this topic Meningococcal Vaccine Aged Out No chris damien eligible based on patient's age to complete this topic Pneumococcal Vaccine: Pediatrics (0 to 5 Years) and At-Risk Patients (6 to 49 Years) Aged Out No longer eligible b ased on patient's age to complete this topic RSV Immunizations Under 20 Months Aged Out No longer eligible b ased on patient's age to complete this topic Insurance [facility] Care Teams Machining And Assembly Supervisor Relationship Specialty Start Date End Date Gurjit Justice MD [facility] [address] [place] [address] [id number] PCP - General FAMILY PRACTICE 03/14/24
--- OUTSIDE RECORDS SUMMARY | 2024-12-13 18:48 | XMS_ITS | Clinical Summary ---
Author Organization [facility] Address [address] [facility] [place] [address] Care Team Providers Care Supervisor/Port Director Name Role Phone Dominik Haynes MD Primary Care Provider [phone] Source Comments [facility],non-owned Affiliates and Associated Physician Practices is amultiple site organization consisting of ambulatory clinics and hospital sitesin [place], [place], [place] and [place]. This disclosure is being madepursuant to the Care Everywhere program and may not contain all information available regarding this patient. Last updated 17.[facility] Allergies No known active allergies Immunizations Immunization Administration Dates Next Due INFLUENZA VACCINE, QUADR. (F LUZONE; FLULAVAL; FLUARIX; AFLURIA QUADRIVALENT; 6MO+), 0.5 ML (IIV4) 01/02/2018 Social History Tobacco Use Types Packs/Day Years Used Date Smoking Tobacco: Never Assessed Comments Unknown Sex and Gender Information Value Date Recorded Sex Assigned at Not on file Legal Sex Female 12:53 PM SENIOR CARE SPECIALIST Gender Identity Not on file Sexual Orientation Not on file Plan of Treatment Health Maintenance Due Date Last Done Comments LIPID TESTING 1980 MAMMOGRAM 1980 HIV SCREENING 08/01/1995 HEPATITIS C SCREENING 07/27/1998 DTAP/TDAP/TD VACCINES (1 - Tdap) 08/01/1999 HEPATITIS B VACCINE (1 of 3 - 19+ 3-dose series) 08/01/1999 HPV VACCINE (1 - 3-dose SCDM series) 08/01/2007 DEPRESSION SCREENING 02/25/2024 COVID-19 VACCINE (2023-2 5 season) 2024 INFLUENZA VACCINE (#1) 2024 01/02/2018 ZOSTER VACCINE (1 of 2) 2030 HIB [...] patient's age to complete this topic Insurance [facility] Address: [address] [address] [place] [address] Care Teams Supervisor/Port Director Relationship Specialty Start Date End Date Dominik Haynes MD PCP - General 01/30/21
--- OUTSIDE RECORDS SUMMARY | 2024-12-13 18:48 | XMS_ITS | Clinical Summary ---
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 CHOICE PLUS [facility] CHOICE PLUS Care Teams Lab Technician Relationship Specialty Start Date End Date Annette Justice MD PCP - General 07/21/20 Amanda Ann MD [address] [place] [address] Referring Physician Obstetrics and Gynecology 09/25/23
== END 2024-12-13 16:28 | disposition home or self-care (01) ==
PROVIDERS: PCP Family Medicine; Visit Provider Nurse Practitioner Family
DX: R74.01 Elevation of levels of liver transaminase levels (principal)
CPT/HCPCS: 36415; 80076